=== PATIENT | female | born 1965 | race Caucasian/White ===

== ENCOUNTER → 2016-12-01 | Outpatient (CLI) | payer OTHER ==
[~2016-12-01] MED LIST: ATIV1TAB10 PO; CELE20TA; FLUT44IN INH; KLON0.5T; LIPI20TA PO; MULTCAP8 PO; PANT40TA2 PO; PERC5TAB6 PO; TIZA2CAP3 PO; TRAZ50TA; VITAPOW41 PO
[2016-12-01 11:43] LABS: ALBUMIN/GLOBULIN RATIO 1.18 (1.00-1.93); ALKALINE PHOSPHATASE 38 U/L (45-117); ALT/SGPT 19 U/L (12-78); ANION GAP 4 MEQ/L (8-16); AST/SGOT 18 U/L (15-37); BILIRUBIN,TOTAL 0.5 MG/DL (0.2-1.0); BLOOD UREA NITROGEN 15 MG/DL (7-18); CALCIUM LEVEL 9.3 MG/DL (8.5-10.1); CARBON DIOXIDE LEVEL 32 MEQ/L (21-32); CHLORIDE LEVEL 105 MEQ/L (98-107); CHOLESTEROL LEVEL 249 MG/DL (<200); CREATININE FOR GFR 0.82 MG/DL (0.55-1.02); GLOMERULAR FILTRATION RATE > 60.0 (>51); GLUCOSE, FASTING 78 MG/DL (70-105); POTASSIUM SERUM 4.2 MEQ/L (3.5-5.1); SODIUM LEVEL 141 MEQ/L (136-145); TOTAL PROTEIN 7.4 GM/DL (6.4-8.2); TRIGLYCERIDES LEVEL 100 MG/DL (<150)
--- NOTE | 2016-12-01 12:40 | REP ---
Paranasal sinuses four views: The frontal, maxillary, sphenoid and ethmoid sinuses are clear on all views. Prevertebral soft tissues are normal. There is no adenoid hypertrophy. There is no nasal septal deviation. Impression: Negative plain film study of the paranasal sinuses. Signed by Lm Rosa MD 12/01/2016 12:32 P
[2016-12-01 13:26] LABS: ESTRADIOL < 19.0 PG/ML
== END ==
LOC: M LAB 10:21
PROVIDERS: ATTEND Family Medicine
DX: J32.9 Chronic sinusitis, unspecified (principal); E78.5 Hyperlipidemia, unspecified; N80.9 Endometriosis, unspecified; E55.9 Vitamin D deficiency, unspecified

== ENCOUNTER 2017-03-02 23:40 | Emergency (ER) | payer OTHER ==
[~2017-03-02] VITALS: Ht 162.6 cm; Wt 70.7 kg
[~2017-03-02 23:40] MED LIST changes: +PERC5TAB12 PO; -PERC5TAB6 PO
[2017-03-03] MEDS ORDERED: ATOR40TA75 PO (00:03)
[2017-03-03] MEDS ORDERED: OMEP40CA2 (00:03)
[2017-03-03] MEDS ORDERED: MONT10TA2 (00:03)
[2017-03-03] MEDS ORDERED: NS 1,000 ML IV ONE (01:15)
[2017-03-03] MEDS ORDERED: MAALOX 30 ML SUSP *UDC PO ONE (01:15)
[2017-03-03 01:32] LABS: BASO % 0.7 % (0.0-1.0); EOS # 0.3 K/mm3 (0.0-0.50); EOS % 3.7 % (0.0-3.0); LARGE UNSTAINED CELL # 0.2 K/mm3 (0.0-0.4); LARGE UNSTAINED CELL % 2.1 % (0.0-4.0); LYMPH # 3.2 K/mm3 (1.5-4.5); LYMPH % 41.4 % (24.0-44.0); MEAN CORPUSCULAR HEMOGLOBIN 29.4 pg (27.0-33.0); MEAN CORPUSCULAR VOLUME 89.2 fl (80.0-96.0); MONO # 0.5 K/mm3 (0.0-0.8); MONO % 6.3 % (0.0-5.0); NEUTROPHILS # 3.3 K/mm3 (1.8-7.7); NEUTROPHILS % 45.8 % (36.0-66.0); PLATELET COUNT, AUTOMATED 240 k/mm3 (150-450); RED CELL DISTRIBUTION WIDTH 12.8 % (11.5-14.5); WHITE BLOOD COUNT 7.2 K/mm3 (4.0-10.0)
[2017-03-03 01:58] LABS: ALBUMIN 3.6 GM/DL (3.2-5.2); ALKALINE PHOSPHATASE 35 U/L (45-117); ALT/SGPT 21 U/L (12-78); ANION GAP 4 MEQ/L (8-16); AST/SGOT 16 U/L (15-37); BILIRUBIN,DIRECT < 0.1 MG/DL (0.0-0.2); BILIRUBIN,TOTAL 0.2 MG/DL (0.2-1.0); BLOOD UREA NITROGEN 23 MG/DL (7-18); CALCIUM LEVEL 9.2 MG/DL (8.5-10.1); CARBON DIOXIDE LEVEL 30 MEQ/L (21-32); CHLORIDE LEVEL 106 MEQ/L (98-107); CREATININE FOR GFR 0.83 MG/DL (0.55-1.02); GLOMERULAR FILTRATION RATE > 60.0 (>51); GLUCOSE, FASTING 89 MG/DL (70-105); POTASSIUM SERUM 3.7 MEQ/L (3.5-5.1); SODIUM LEVEL 140 MEQ/L (136-145); TOTAL PROTEIN 7.2 GM/DL (6.4-8.2)
--- NOTE | 2017-03-03 03:00 | REPUSA ---
CLINICAL HISTORY: RUQ pain. TECHNIQUE: Realtime sonographic images were obtained in multiple projections. COMMENTS: The visualized liver is of uniform echo texture without evidence of mass or defect. There is no intra or extrahepatic biliary ductal dilatation. The common bile duct measures 5.1 mm. The gallbladder is physiologically distended without evidence of calculi. The gallbladder wall is not thickened and the re is no pericholecystic fluid. The visualized portions of the pancreas are unremarkable. The right kidney measures 12.1x5x5.5 cm. IMPRESSION: No evidence of cholelithiasis or cholecystitis. Thank you for your kind referral of this patient.
[2017-03-03] MEDS ORDERED: HYOSCYAMINE SULFATE 0.125 MG SUBL TABLET PO ONE (04:00)
[2017-03-03] MEDS ORDERED: ISOVUE-370 76% 100ML VIAL (Q9967) As Ordered ONE (04:01)
--- NOTE | 2017-03-03 05:00 | REPUSA ---
CLINICAL HISTORY: Chest discomfort. TECHNIQUE: Multiple axial CT images were obtained through the thorax with IV contrast material. COMMENTS: No pulmonary embolus or aortic dissection. Bilateral basilar atelectatic pulmonary changes. There is no evidence of pleural or parenchymal mass. There are no pleural effusions. There is no evid ence of hilar or mediastinal lymphadenopathy. The heart and great vessels are within normal limits. The visualized portions of the liver are of uniform attenuation without mass or defect. There is no i ntra or extrahepatic biliary ductal dilatation. The spleen is unremarkable. The visualized pancreas i s of normal contour and attenuation characteristics. There is no evidence of adrenal mass. The visual ized portions of the kidneys present no abnormalities. The bony structures are free of lytic or blastic lesions. Post contrast images demonstrate no evidence for abnormal enhancement. IMPRESSION: Bilateral basilar atelectatic pulmonary changes. No pulmonary embolus or aortic dissection. No evidence of acute thoracic pathology. Thank you for your kind referral of this patient.
--- NOTE | 2017-03-03 05:40 | REPUSA ---
CLINICAL HISTORY: Abdominal pain. TECHNIQUE: Multiple axial, sagittal and coronal CT images were obtained through the abdomen and pelvi s after administration of oral and intravenous contrast material. Images were obtained before and aft er IV contrast administration. COMMENTS: The liver is of uniform attenuation without mass or defect. There is no intra or extrahepatic biliary ductal dilatation. The spleen is normal. The gallbladder is within normal limits. The pancreas is of normal contour and attenuation characteristics. There is no evidence of adrenal mass. Both kidneys demonstrate prompt and equal nephrograms. The kidneys are normal in size, shape and conf iguration. There is no evidence of renal or ureteral mass. No renal or ureteral calculi are identifie d. There is no hydroureter or hydronephrosis. No evidence for appendicitis. There is no bowel wall thickening. No evidence for small or large jaydon l obstruction. There is no evidence of abdominal ascites or lymphadenopathy. There is no evidence of intrinsic or extrinsic bladder mass. There is no pelvic ascites or lymphadeno ger. Prior hysterectomy. Images of the lung bases show no evidence of pleural or parenchymal mass. There are no pleural effusi ons. The bony structures are free of lytic or blastic lesions. IMPRESSION: Prior hysterectomy. No evidence of acute abdominal or pelvic pathology. No aortic dissection. Thank you for your kind referral of this patient.
[2017-03-03] MEDS ORDERED: HYOS1TAB PO (06:10)
[2017-03-03 06:21] VITALS: BP 100/77
[2017-04-30] MEDS ORDERED: ALBU17IN INH (07:48)
[2017-04-30] MEDS ORDERED: LANS30CA PO (07:48)
[2017-04-30] MEDS ORDERED: ACYC800T PO (07:48)
[2017-04-30] MEDS ORDERED: AZEL0.1S3 (07:48)
[2017-05-14] MEDS ORDERED: OXYC1TAB23 PO (10:03)
== END 2017-03-03 06:29 | disposition home or self-care (01) ==
LOC: M ED 23:40
DX: K80.50 Calculus of bile duct without cholangitis or cholecystitis without obstruction (principal); K21.9 Gastro-esophageal reflux disease without esophagitis; E78.5 Hyperlipidemia, unspecified; Z88.5 Allergy status to narcotic agent; Z88.8 Allergy status to other drugs, medicaments and biological substances; Z88.2 Allergy status to sulfonamides; Z88.1 Allergy status to other antibiotic agents; Z88.0 Allergy status to penicillin; Z79.899 Other long term (current) drug therapy

== ENCOUNTER → 2017-03-30 | Outpatient (CLI) | payer OTHER ==
[~2017-03-30] MED LIST changes: +ACYC800T PO; +ALBU17IN INH; +ATOR40TA75 PO; +AZEL0.1S3; +CIPR-249 PO; +HYOS1TAB PO; +IBUP-1022 PO; +LANS30CA PO; +MACR100C43 PO; +MONT10TA2; +OMEP40CA2; +OXYC1TAB23 PO; +TYLE500T78 PO; +ZANT300T PO; +ZOFR4TAB3 PO
--- NOTE | 2017-03-30 09:50 | REPMRS ---
Patient History The patient states she has not had a clinical breast exam in over a year. Patient is postmenopausal and has history of skin cancer at age 50. Family history of prostate cancer in father at age 50 or over and breast cancer in mother under age 50. Digital Woman Screen Mammo: March 30, 2017 - Exam #: [id number] Bilateral CC and MLO view(s) were taken. Technologist: Jacquelin Quintero, Technologist Prior study comparison: January 10, 2016, digital woman screen mammo performed at [facility]. December 11, 2014, digital woman screen mammo performed at [facility]. FINDINGS: There are scattered fibroglandular densities. There has been no change in the appearance of the mammogram from the prior studies. There is a moderate amount of residual fibroglandular tissue which is fairly symmetric. There is no interval development of dominant mass, architectural distortion, or clustered microcalcification suggestive of malignancy. There is a benign appearing intramammary node in the upper outer quadrant of the right breast. Scattered lymph nodes are seen in the axilla. No significant changes when compared with prior studies. ASSESSMENT: BI-RADS/ACR category 2 mammogram. Benign finding(s). Recommendation Routine screening mammogram in 1 year (for women over age 40). This mammogram was interpreted with the aid of an FDA-approved computer-aided dectection system. A. Negative x-ray reports should not delay biopsy if a dominant or clinically suspicious mass is present. B. Four to eight percent of cancers are not identified by mammography. C. Adenosis and dense breast may obscure an underlying neoplasm. Electronically Signed By: Jax Gomez MD 03/30/17 0952
--- NOTE | 2017-04-01 10:43 | DEXA ---
AP SPINE L1 - L4 0.952 -2.0 -1.4 LT FEMUR TOTAL 0.731 -2.2 -1.7 RT FEMUR TOTAL 0.726 -2.2 -1.7 TOTAL BODY TOTAL OTHER DUAL FEMUR FRAX* ASSESSMENT Risk factors: History of adult fracture, premature menopause. 10 year probability of fracture Major osteoporotic fracture 14.0 % Hip fracture 3.4 % COMMENTS: There is low bone density of the spine. There is low bone density of the left hip. There is low bone density of the right hip. The density of the spine has decreased 1.8% since the initial exam on 2012. The spine density has increased 1.2% since the most recent exam on 01/29/2015. The density of the left hip has decreased 0.9% since the initial exam on 2012. The density of the left hip has decreased 1.5% since the most recent exam on 08/2014. The density of the right hip has decreased 1.8% since the initial exam on 2012. The density of the right hip has decreased 5.6% since the most recent exam on . FOLLOW-UP: Recommendation for the next bone density exam: 2 years. LAMAR
== END ==
LOC: M WHC 09:00
PROVIDERS: ATTEND Family Medicine
DX: Z12.31 Encounter for screening mammogram for malignant neoplasm of breast (principal); Z80.3 Family history of malignant neoplasm of breast; M85.80 Other specified disorders of bone density and structure, unspecified site
CPT/HCPCS: 77080; G0202

== ENCOUNTER → 2017-05-11 | Outpatient (CLI) | payer OTHER ==
--- NOTE | 2017-05-11 13:12 | ECGEPIP ---
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
== END ==
LOC: M LAB 11:15
PROVIDERS: ATTEND Anesthesiology
DX: Z01.818 Encounter for other preprocedural examination (principal); N80.9 Endometriosis, unspecified; Z85.828 Personal history of other malignant neoplasm of skin; E78.5 Hyperlipidemia, unspecified; K21.9 Gastro-esophageal reflux disease without esophagitis; E78.00 Pure hypercholesterolemia, unspecified

== ENCOUNTER → 2017-05-14 | Day surgery (SDC) | payer OTHER ==
[~2017-05-14] VITALS: Ht 162.6 cm; Wt 70.3 kg
[~2017-05-14] MED LIST changes: +BUPIVACAINE HCL 0.25% 30 ML VIAL As Ordered ONE; +GLYCOPYRROLATE INJ 0.2 MG/ML 2 ML VIAL As Ordered ONE; +HYDROmorphone HCL 1 MG/ML SYRINGE (J1170) IV PRN; +HYDROmorphone HCL 2 MG/ML 1ML VIAL (J1170) As Ordered ONE; +KETOROLAC 60 MG/2 ML VIAL (J1885) As Ordered ONE; +LIDOCAINE 2% INJ 100 MG/5 ML SDV (FOR ANES.) As Ordered ONE; +LR 1,000 ML IV SCH; +METOCLOPRAMIDE INJ 10MG/2ML VIAL (J2765) As Ordered ONE; +MIDAZOLAM INJ 2 MG/2 ML VIAL (J2250) As Ordered ONE; +NEOSTIGMINE 1MG/ML 5 ML SYRINGE (J2710) As Ordered ONE; +ONDANSETRON 4MG/2ML VIAL (J2405) As Ordered ONE; +ONDANSETRON 4MG/2ML VIAL (J2405) IV PRN; +PERCOCET 5MG/325MG TAB PO PRN; +PHENYLephrine HCL 500 MCG/5 ML (100MCG/ML) SYRINGE (J2370) As Ordered ONE; +PROPOFOL 200 MG/20 ML VIAL As Ordered ONE; +ROCURONIUM BROMIDE 50 MG/5 ML VIAL/SYRINGE As Ordered ONE; +SCOPOLAMINE 1.5 MG TRANSDERMAL TOP ONE; +dexameTHASONE 4 MG/ML 1ML VIAL (J1100) As Ordered ONE; +ePHEDrine SULFATE 25 MG/5 ML(5MG/ML) SYRINGE As Ordered ONE; +fentaNYL 100 MCG/2 ML INJECTION (J3010) As Ordered ONE; +fentaNYL 100 MCG/2 ML INJECTION (J3010) IV PRN
[2017-05-14 06:23] LABS: MEAN CORPUSCULAR HEMOGLOBIN 28.9 pg (27.0-33.0); MEAN CORPUSCULAR HGB CONC 33.1 g/dl (32.0-36.5); MEAN CORPUSCULAR VOLUME 87.5 fl (80.0-96.0); RED CELL DISTRIBUTION WIDTH 12.6 % (11.5-14.5); WHITE BLOOD COUNT 6.4 K/mm3 (4.0-10.0)
--- NOTE | 2017-05-14 10:44 | RO ---
DATE OF PROCEDURE: 05/14/2017 PREPROCEDURE DIAGNOSIS: Endometriosis, post menopausal. POSTPROCEDURE DIAGNOSIS: Endometriosis, post menopausal. PROCEDURE: Robotic assisted laparoscopic excision and ablation of endometriosis. SURGEON: Dr. Luis Antonio Waters. SHEET ROCK LAYER: Cindy Mota NP ANESTHESIA: General endotracheal. ESTIMATED BLOOD LOSS: 50 mL URINE OUTPUT: 200 mL FINDINGS: Extensive endometriosis implants involving the bladder, posterior cul-de-sac, paravesical space, pelvic sidewalls. There were endometriosis implants involving the rectum as well. She has a surgically absent uterus, fallopian tubes and ovaries. There were adhesions of omentum and epiploica to the vaginal cuff and pelvis sidewall on the left. DESCRIPTION OF PROCEDURE: The patient was taken to the operating room where general endotracheal anesthesia was induced. She was prepped and draped in the sterile fashion in the dorsal lithotomy position. A Feldman catheter was placed. Sponge stick was placed to use as a manipulator. A periumbilical incision was made with the scalpel. An 11 mm trocar was placed directly through this incision using Visiport. Three 8 mm suprapubic ports were placed under direct visualization. The patient was placed in Trendelenburg position. The da Eugene surgical robot was docked to the ports. Using monopolar endoshears and a bipolar PK dissector, the endometriosis implants were ablated. Monopolar cautery was the common way of ablating the endometriosis implants. In the posterior cul-de-sac, the anterior cul-de-sac and the perivesical spaces, the peritoneum was grasped, incised and dissected sharply. Several peritoneal biopsies were removed. Strips of peritoneum were dissected sharply. The ureters were identified and partially dissected near the area of the cardial ligament. Cindy Mota NP, was involved with the entire case, from start to finish. She helped position the patient under anesthesia, and inset the laparoscopic ports. She docked the robot. She manipulated the vaginal cuff to aid in surgery. She undocked the robot, and close the incisions. The pelvis was copiously irrigated and Mary coagulating agent was placed over all peritoneal surfaces. The pneumoperitoneum was released. All instruments removed. First the umbilical port was closed with interrupted sutures of 0 Vicryl. The skin was closed with #4-0 Monocryl subcuticular sutures. Sponge, instrument and needle counts were correct. MTDD
[2017-05-14 14:30] VITALS: BP 108/64
== END ==
LOC: M SDC 05:57
PROVIDERS: ATTEND Specialist
DX: N80.9 Endometriosis, unspecified (principal); Z78.0 Asymptomatic menopausal state; K21.9 Gastro-esophageal reflux disease without esophagitis; J32.9 Chronic sinusitis, unspecified; J30.9 Allergic rhinitis, unspecified; E78.5 Hyperlipidemia, unspecified; L57.0 Actinic keratosis; B00.9 Herpesviral infection, unspecified; R10.13 Epigastric pain; M47.816 Spondylosis without myelopathy or radiculopathy, lumbar region; E73.9 Lactose intolerance, unspecified; E55.9 Vitamin D deficiency, unspecified; M85.80 Other specified disorders of bone density and structure, unspecified site; F41.9 Anxiety disorder, unspecified; J45.20 Mild intermittent asthma, uncomplicated; T88.59XD Other complications of anesthesia, subsequent encounter; R29.898 Other symptoms and signs involving the musculoskeletal system; F31.9 Bipolar disorder, unspecified; Z88.0 Allergy status to penicillin; Z88.2 Allergy status to sulfonamides; Z88.5 Allergy status to narcotic agent; Z88.8 Allergy status to other drugs, medicaments and biological substances; Z79.899 Other long term (current) drug therapy; Z85.828 Personal history of other malignant neoplasm of skin; Z90.710 Acquired absence of both cervix and uterus

== ENCOUNTER 2017-05-15 16:50 | Emergency (ER) | payer OTHER ==
[~2017-05-15] VITALS: Ht 162.6 cm; Wt 70.5 kg
[~2017-05-15 16:50] MED LIST changes: -BUPIVACAINE HCL 0.25% 30 ML VIAL As Ordered ONE; -CIPR-249 PO; -GLYCOPYRROLATE INJ 0.2 MG/ML 2 ML VIAL As Ordered ONE; -HYDROmorphone HCL 1 MG/ML SYRINGE (J1170) IV PRN; -HYDROmorphone HCL 2 MG/ML 1ML VIAL (J1170) As Ordered ONE; -IBUP-1022 PO; -KETOROLAC 60 MG/2 ML VIAL (J1885) As Ordered ONE; -LIDOCAINE 2% INJ 100 MG/5 ML SDV (FOR ANES.) As Ordered ONE; -LR 1,000 ML IV SCH; -MACR100C43 PO; -METOCLOPRAMIDE INJ 10MG/2ML VIAL (J2765) As Ordered ONE; -MIDAZOLAM INJ 2 MG/2 ML VIAL (J2250) As Ordered ONE; -NEOSTIGMINE 1MG/ML 5 ML SYRINGE (J2710) As Ordered ONE; -ONDANSETRON 4MG/2ML VIAL (J2405) As Ordered ONE; -ONDANSETRON 4MG/2ML VIAL (J2405) IV PRN; -PERCOCET 5MG/325MG TAB PO PRN; -PHENYLephrine HCL 500 MCG/5 ML (100MCG/ML) SYRINGE (J2370) As Ordered ONE; -PROPOFOL 200 MG/20 ML VIAL As Ordered ONE; -ROCURONIUM BROMIDE 50 MG/5 ML VIAL/SYRINGE As Ordered ONE; -SCOPOLAMINE 1.5 MG TRANSDERMAL TOP ONE; -TYLE500T78 PO; -ZANT300T PO; -ZOFR4TAB3 PO; -dexameTHASONE 4 MG/ML 1ML VIAL (J1100) As Ordered ONE; -ePHEDrine SULFATE 25 MG/5 ML(5MG/ML) SYRINGE As Ordered ONE; -fentaNYL 100 MCG/2 ML INJECTION (J3010) As Ordered ONE; -fentaNYL 100 MCG/2 ML INJECTION (J3010) IV PRN
[2017-05-15] MEDS ORDERED: TYLE500T78 PO (17:16)
[2017-05-15] MEDS ORDERED: IBUP-1022 PO (17:16)
[2017-05-15 20:16] LABS: BASO % 0.5 % (0.0-1.0); EOS # 0.1 K/mm3 (0.0-0.50); EOS % 1.7 % (0.0-3.0); LARGE UNSTAINED CELL # 0.1 K/mm3 (0.0-0.4); LARGE UNSTAINED CELL % 1.7 % (0.0-4.0); LYMPH # 2.4 K/mm3 (1.5-4.5); LYMPH % 35.2 % (24.0-44.0); MEAN CORPUSCULAR HEMOGLOBIN 30.4 pg (27.0-33.0); MEAN CORPUSCULAR HGB CONC 34.5 g/dl (32.0-36.5); MEAN CORPUSCULAR VOLUME 88.1 fl (80.0-96.0); MONO # 0.5 K/mm3 (0.0-0.8); MONO % 6.9 % (0.0-5.0); NEUTROPHILS # 3.6 K/mm3 (1.8-7.7); PLATELET COUNT, AUTOMATED 247 k/mm3 (150-450); RED CELL DISTRIBUTION WIDTH 12.4 % (11.5-14.5); WHITE BLOOD COUNT 6.7 K/mm3 (4.0-10.0)
[2017-05-15 20:45] LABS: ALBUMIN 3.4 GM/DL (3.2-5.2); ALBUMIN/GLOBULIN RATIO 1.06 (1.00-1.93); ALKALINE PHOSPHATASE 34 U/L (45-117); ALT/SGPT 20 U/L (12-78); ANION GAP 9 MEQ/L (8-16); AST/SGOT 19 U/L (15-37); BILIRUBIN,DIRECT < 0.1 MG/DL (0.0-0.2); BILIRUBIN,TOTAL 0.5 MG/DL (0.2-1.0); BLOOD UREA NITROGEN 14 MG/DL (7-18); CALCIUM LEVEL 8.6 MG/DL (8.5-10.1); CARBON DIOXIDE LEVEL 29 MEQ/L (21-32); CHLORIDE LEVEL 107 MEQ/L (98-107); CREATININE FOR GFR 0.81 MG/DL (0.55-1.02); GLOMERULAR FILTRATION RATE > 60.0 (>51); GLUCOSE, FASTING 78 MG/DL (70-105); SODIUM LEVEL 145 MEQ/L (136-145); TOTAL PROTEIN 6.6 GM/DL (6.4-8.2)
[2017-05-15 21:28] VITALS: BP 119/63
== END 2017-05-15 21:31 | disposition home or self-care (01) ==
LOC: M ED 16:50
DX: R10.9 Unspecified abdominal pain (principal); R30.0 Dysuria; G89.18 Other acute postprocedural pain; J45.909 Unspecified asthma, uncomplicated; F31.9 Bipolar disorder, unspecified; N80.9 Endometriosis, unspecified; Z98.890 Other specified postprocedural states; Z79.899 Other long term (current) drug therapy; Z88.8 Allergy status to other drugs, medicaments and biological substances; Z88.1 Allergy status to other antibiotic agents; Z88.0 Allergy status to penicillin; Z88.2 Allergy status to sulfonamides; Z88.5 Allergy status to narcotic agent

== ENCOUNTER 2017-05-17 12:29 | Emergency (ER) | payer OTHER ==
[~2017-05-17] VITALS: Ht 162.6 cm; Wt 70.5 kg
[~2017-05-17 12:29] MED LIST changes: +IBUP-1022 PO; +TYLE500T78 PO
[2017-05-17] MEDS ORDERED: MACR100C43 PO (12:45)
[2017-05-17] MEDS ORDERED: NS 1,000 ML IV SCH (13:03)
[2017-05-17] MEDS ORDERED: ONDANSETRON 4MG/2ML VIAL (J2405) IV ONE (13:15)
--- NOTE | 2017-05-17 13:40 | REP ---
Clinical: Postoperative fever . Comparison: 12/17/2014 . Technique: PA and lateral. Findings: The mediastinum and cardiac silhouette are normal. The lung loera are clear and without acute consolidation, effusion, or pneumothorax. The skeletal structures are intact and normal. Impression: 1. No acute cardiopulmonary process. Signed by Alejandro Kaur MD 05/17/2017 01:32 P
[2017-05-17 13:48] LABS: BASO % 0.4 % (0.0-1.0); EOS # 0.2 K/mm3 (0.0-0.50); EOS % 2.4 % (0.0-3.0); LARGE UNSTAINED CELL # 0.1 K/mm3 (0.0-0.4); LARGE UNSTAINED CELL % 2.1 % (0.0-4.0); LYMPH # 2.4 K/mm3 (1.5-4.5); LYMPH % 35.4 % (24.0-44.0); MEAN CORPUSCULAR HEMOGLOBIN 29.9 pg (27.0-33.0); MEAN CORPUSCULAR HGB CONC 35.1 g/dl (32.0-36.5); MEAN CORPUSCULAR VOLUME 85.2 fl (80.0-96.0); MONO # 0.4 K/mm3 (0.0-0.8); MONO % 5.5 % (0.0-5.0); NEUTROPHILS # 3.6 K/mm3 (1.8-7.7); NEUTROPHILS % 54.2 % (36.0-66.0); PLATELET COUNT, AUTOMATED 292 k/mm3 (150-450); RED CELL DISTRIBUTION WIDTH 12.1 % (11.5-14.5); WHITE BLOOD COUNT 6.7 K/mm3 (4.0-10.0)
[2017-05-17 14:08] LABS: ALBUMIN 3.4 GM/DL (3.2-5.2); ALBUMIN/GLOBULIN RATIO 0.85 (1.00-1.93); ALKALINE PHOSPHATASE 34 U/L (45-117); ALT/SGPT 20 U/L (12-78); ANION GAP 8 MEQ/L (8-16); AST/SGOT 11 U/L (15-37); BILIRUBIN,DIRECT < 0.1 MG/DL (0.0-0.2); BILIRUBIN,TOTAL 0.3 MG/DL (0.2-1.0); BLOOD UREA NITROGEN 12 MG/DL (7-18); CARBON DIOXIDE LEVEL 28 MEQ/L (21-32); CHLORIDE LEVEL 109 MEQ/L (98-107); GLOMERULAR FILTRATION RATE > 60.0 (>51); GLUCOSE, FASTING 84 MG/DL (70-105); POTASSIUM SERUM 3.6 MEQ/L (3.5-5.1); SODIUM LEVEL 145 MEQ/L (136-145); TOTAL PROTEIN 7.4 GM/DL (6.4-8.2)
[2017-05-17] MEDS ORDERED: KETOROLAC 30 MG/ML VIAL (J1885) IV ONE (14:30)
[2017-05-17] MEDS ORDERED: GASTROGRAFIN SOLUTION 30ML (Q9963) PO ONE (15:00)
[2017-05-17] MEDS ORDERED: GASTROGRAFIN SOLUTION 30ML PO ONE (15:30)
[2017-05-17] MEDS ORDERED: ISOVUE-370 76% 100ML VIAL (Q9967) As Ordered ONE (15:51)
--- NOTE | 2017-05-17 18:00 | REPUSA ---
CT of the abdomen and pelvis with contrast Clinical statement: Pain. Technique: Multiple axial CT images were obtained from the base of the lungs through the floor of the pelvis utilizing 5 mm axial slices after administration of oral and nonionic intravenous contrast. C oronal and sagittal reconstructions were also obtained. Comparison: 03/03/2017. Findings: Chest: The visualized lung bases are clear. Abdomen: The liver, spleen, pancreas, kidneys, gallbladder, and adrenal glands are unremarkable. The aorta is within normal limits. There is no evidence of abdominal lymphadenopathy or ascites. Pelvis: The bowel is unremarkable, with no obstructive or inflammatory changes. The appendix is gray l. The urinary bladder is within normal limits. The patient is status post hysterectomy. There is no evidence of pelvic lymphadenopathy or ascites. Bones: There are no suspicious osseous abnormalities seen. Impression: Unremarkable CT examination of the abdomen and pelvis. No acute findings to explain the p atient's pain.
[2017-05-17] MEDS ORDERED: ZOFR4TAB3 PO (18:25)
[2017-05-17] MEDS ORDERED: NITROFURANTOIN (MACROBID) 100 MG CAP PO ONE (18:30)
[2017-05-17 18:32] VITALS: BP 119/67
== END 2017-05-17 18:40 | disposition home or self-care (01) ==
LOC: M ED 12:29
DX: G89.18 Other acute postprocedural pain (principal); N39.0 Urinary tract infection, site not specified; B96.20 Unspecified Escherichia coli [E. coli] as the cause of diseases classified elsewhere; J45.909 Unspecified asthma, uncomplicated; F31.9 Bipolar disorder, unspecified; M85.88 Other specified disorders of bone density and structure, other site; M51.36 Other intervertebral disc degeneration, lumbar region; J32.9 Chronic sinusitis, unspecified; Z87.891 Personal history of nicotine dependence; Z88.5 Allergy status to narcotic agent; Z88.8 Allergy status to other drugs, medicaments and biological substances; Z88.2 Allergy status to sulfonamides; Z88.4 Allergy status to anesthetic agent; Z88.0 Allergy status to penicillin; Z88.1 Allergy status to other antibiotic agents; Z79.899 Other long term (current) drug therapy
CPT/HCPCS: 71020; 74177; 80048; 80076; 83690; 85025; 93041; 94760; 96361; 96374; 96375; 99285; J1885; J2405; Q9963; Q9967

== ENCOUNTER → 2017-05-28 | Outpatient (REF) | payer OTHER ==
[~2017-05-28] MED LIST changes: +CIPR-249 PO; +MACR100C43 PO; +ZANT300T PO; +ZOFR4TAB3 PO
[2017-05-28 14:14] LABS: CHOLESTEROL LEVEL 188 MG/DL (<200); FREE T4 1.15 NG/DL (0.76-1.46); TRIGLYCERIDES LEVEL 104 MG/DL (<150)
[2017-05-29 10:08] LABS: HEPATITIS B SURFACE ANTIBODY POSITIVE (POSITIVE)
[2017-05-29 10:14] LABS: HEP C VIRUS AB SCREEN MEDICARE 0.2 INDEX (<0.8)
== END ==
LOC: M SFHCPLAZ 10:05
PROVIDERS: ATTEND Physician Assistant Medical
DX: E78.5 Hyperlipidemia, unspecified (principal); Z11.59 Encounter for screening for other viral diseases; Z11.4 Encounter for screening for human immunodeficiency virus [HIV]; R10.13 Epigastric pain
CPT/HCPCS: 36415; 84439; 84443; 86677; 87389; G0472

== ENCOUNTER 2017-06-12 16:23 | Emergency (ER) | payer OTHER, SELFPAY ==
[~2017-06-12] VITALS: Ht 162.6 cm; Wt 70.5 kg
[~2017-06-12 16:23] MED LIST changes: -CIPR-249 PO; -ZANT300T PO
--- NOTE | 2017-06-12 18:39 | REP ---
Abdominal series: Three views. History: Abdominal pain. Comparison chest x-ray May 17, 2017. Findings: Upright chest radiograph shows no evidence of infiltrate or free subdiaphragmatic air. Heart size is normal. Supine and erect views of the abdomen show a normal bowel gas pattern. Psoas margins and flank stripes are intact. No mass, organomegaly, or pathologic calcification is seen. Impression: Negative abdominal series. Signed by Oren Lopez MD 06/12/2017 07:25 P
--- NOTE | 2017-06-12 19:10 | REP ---
Thyroid sonography: History: Lump sensation in the throat. Findings: Thyroid isthmus is 0.2 cm in thickness. Right lobe dimensions are 3.6 x 1.3 x 1.5 cm. The left lobe measures 3.4 x 1.7 x 0.8 cm. There is a 2 mm cyst near the isthmus just to the left of midline. No other focal thyroid lesion is seen. No extrathyroidal mass or adenopathy noted. Impression: Negative thyroid sonography. Signed by Oren Lopez MD 06/12/2017 07:25 P
[2017-06-12] MEDS ORDERED: MACR100C43 PO (19:48)
[2017-06-12] MEDS ORDERED: ZANT300T PO (19:48)
[2017-06-12 19:57] VITALS: BP 127/75
[2017-06-12] MEDS ORDERED: CIPR-249 PO (20:19)
== END 2017-06-12 20:18 | disposition home or self-care (01) ==
LOC: M ED 16:23
DX: K44.9 Diaphragmatic hernia without obstruction or gangrene (principal); K21.9 Gastro-esophageal reflux disease without esophagitis; N39.0 Urinary tract infection, site not specified; Z88.5 Allergy status to narcotic agent; Z88.8 Allergy status to other drugs, medicaments and biological substances; Z88.0 Allergy status to penicillin; Z88.2 Allergy status to sulfonamides; Z88.1 Allergy status to other antibiotic agents

== ENCOUNTER → 2017-07-25 | Outpatient (CLI) | payer OTHER ==
[~2017-07-25] MED LIST changes: +CIPR-249 PO; +ZANT300T PO
--- NOTE | 2017-07-25 16:19 | REP ---
Clinical: Chronic pain. Technique: AP, lateral, bilateral oblique views of the left foot. Findings: No acute or healed fracture identified. Mild age-related degenerative changes at the tarsometatarsal joints include subchondral sclerosis and minimal cortical irregularity. Small soft tissue calcifications adjacent to the cuboid and navicular bones are in keeping with mild degenerative change. Lateral view demonstrates small calcaneal heal spur. Impression: Age-related degenerative changes. Signed by Alejandro Kaur MD 07/25/2017 04:11 P
== END ==
LOC: M WUC 15:36
PROVIDERS: ATTEND Physician Assistant Medical
DX: M19.072 Primary osteoarthritis, left ankle and foot (principal)

== ENCOUNTER → 2017-09-22 | Outpatient (REF) | payer OTHER ==
[2017-09-22 13:09] LABS: PTH INTACT 76.8 PG/ML (14.0-72.0); TOTAL 25(OH) VITAMIN D 23.8 NG/ML (30.0-100.0)
[2017-09-22 13:15] LABS: ESTIMATED AVERAGE GLUCOSE 128 MG/DL (60-110); HEMOGLOBIN A1c 6.1 %
[2017-09-22 13:17] LABS: ALBUMIN 4.2 GM/DL (3.2-5.2); ALBUMIN/GLOBULIN RATIO 1.11 (1.00-1.93); ALKALINE PHOSPHATASE 42 U/L (45-117); ALT/SGPT 28 U/L (12-78); ANION GAP 3 MEQ/L (8-16); AST/SGOT 16 U/L (7-37); BILIRUBIN,TOTAL 0.4 MG/DL (0.2-1.0); BLOOD UREA NITROGEN 13 MG/DL (7-18); CALCIUM LEVEL 9.3 MG/DL (8.5-10.1); CARBON DIOXIDE LEVEL 33 MEQ/L (21-32); CHLORIDE LEVEL 104 MEQ/L (98-107); CREATININE FOR GFR 0.78 MG/DL (0.55-1.02); GLOMERULAR FILTRATION RATE > 60.0 (>51); GLUCOSE, FASTING 81 MG/DL (70-100); POTASSIUM SERUM 4.5 MEQ/L (3.5-5.1); SODIUM LEVEL 140 MEQ/L (136-145)
[2017-09-23 14:13] LABS: INSULIN LEVEL 10.3 uIU/mL (2.6-24.9)
== END ==
LOC: M SFHCPLAZ 08:54
DX: E55.9 Vitamin D deficiency, unspecified (principal); E78.5 Hyperlipidemia, unspecified

== ENCOUNTER → 2017-10-01 | Outpatient (REF) | payer OTHER ==
[2017-10-01 20:02] LABS: APPEARANCE, URINE CLEAR (CLEAR); BACTERIA, URINE AUTO NEGATIVE (NEGATIVE); BILIRUBIN, URINE AUTO NEGATIVE (NEGATIVE); BLOOD, URINE BLOOD NEGATIVE (NEGATIVE); COLOR, URINE STRAW (YELLOW); GLUCOSE, URINE (UA) AUTO NEGATIVE (NEGATIVE); KETONE, URINE AUTO NEGATIVE (NEGATIVE); LEUKOCYTE ESTERASE, URINE AUTO NEGATIVE (NEGATIVE); MUCUS, URINE SMALL (NEGATIVE); NITRITE, URINE AUTO NEGATIVE (NEGATIVE); PROTEIN, URINE AUTO NEGATIVE (NEGATIVE); RBC, URINE AUTO 0 /HPF (0-3); SPECIFIC GRAVITY URINE AUTO 1.005 (1.002-1.035); SQUAMOUS EPITHELIAL CELL UR AU 0 /HPF (0-6); UROBILINOGEN, URINE AUTO 0.2 mg/dL (0.0-2.0); WBC, URINE AUTO 0 /HPF (0-3)
== END ==
LOC: M LAB REF 19:11
DX: R39.9 Unspecified symptoms and signs involving the genitourinary system (principal)

== ENCOUNTER 2017-11-13 16:33 | Outpatient (CLI) | payer OTHER ==
[2017-11-13] MEDS: ZOLEDRONIC ACID 5 MG in APPROPRIATE DILUENT 1 EA IV (17:14)
== END 2017-11-13 18:10 | disposition home or self-care (01) ==
LOC: M INFU 16:33
DX: M85.80 Other specified disorders of bone density and structure, unspecified site (principal); Z79.899 Other long term (current) drug therapy
CPT/HCPCS: J3489

== ENCOUNTER 2017-11-14 17:00 | Emergency (ER) | payer OTHER ==
[2017-11-14] MEDS: ASPIRIN 81 MG CHEW TABLET PO ×2 (17:44)
[2017-11-14] MEDS: ONDANSETRON 4MG/2ML VIAL (J2405) IV ×2 (17:44)
[2017-11-14 17:49] LABS: BASO % 0.4 % (0.0-1.0); EOS # 0.1 10^3/uL (0.0-0.50); EOS % 1.4 % (0.0-3.0); HEMATOCRIT 41.3 % (36.0-47.0); HEMOGLOBIN 13.7 g/dl (12.0-16.0); IMMATURE GRANULOCYTE % 0.4 % (0-3.0); LYMPH # 1.3 10^3/uL (1.5-4.5); LYMPH % 16.2 % (24.0-44.0); MEAN CORPUSCULAR HEMOGLOBIN 28.7 pg (27.0-33.0); MEAN CORPUSCULAR HGB CONC 33.2 g/dl (32.0-36.5); MEAN CORPUSCULAR VOLUME 86.4 fl (80.0-96.0); MONO # 0.5 10^3/uL (0.0-0.8); MONO % 6.3 % (0.0-5.0); NEUTROPHILS # 5.9 10^3/uL (1.8-7.7); NEUTROPHILS % 75.3 % (36.0-66.0); PLATELET COUNT, AUTOMATED 299 10^3/uL (150-450); RED BLOOD COUNT 4.78 10^6/uL (4.00-5.40); RED CELL DISTRIBUTION WIDTH 12.9 % (11.5-14.5); WHITE BLOOD COUNT 7.9 10^3/uL (4.0-10.0)
[2017-11-14 17:52] LABS: INR 0.89
[2017-11-14 17:53] LABS: PARTIAL THROMBOPLASTIN TIME 30.8 SECONDS (26.8-37.9)
[2017-11-14 18:06] LABS: ALBUMIN 4.1 GM/DL (3.2-5.2); ALBUMIN/GLOBULIN RATIO 1.08 (1.00-1.93); ALKALINE PHOSPHATASE 44 U/L (45-117); ALT/SGPT 36 U/L (12-78); ANION GAP 8 MEQ/L (8-16); AST/SGOT 28 U/L (7-37); BILIRUBIN,DIRECT < 0.1 MG/DL (0.0-0.2); BILIRUBIN,TOTAL 0.3 MG/DL (0.2-1.0); BLOOD UREA NITROGEN 20 MG/DL (7-18); CALCIUM LEVEL 8.6 MG/DL (8.5-10.1); CARBON DIOXIDE LEVEL 27 MEQ/L (21-32); CHLORIDE LEVEL 105 MEQ/L (98-107); CPK CREATINE PHOSPHOKINASE 112 U/L (26-192); CREATININE FOR GFR 0.79 MG/DL (0.55-1.30); GLOMERULAR FILTRATION RATE > 60.0 (>51); GLUCOSE, FASTING 95 MG/DL (70-100); LIPASE 202 U/L (73-393); POTASSIUM SERUM 3.8 MEQ/L (3.5-5.1); SODIUM LEVEL 140 MEQ/L (136-145); TOTAL PROTEIN 7.9 GM/DL (6.4-8.2); TROPONIN I < 0.02 NG/ML (< 0.10)
[2017-11-14 18:07] LABS: CK-MB VALUE MASS 1.7 NG/ML (0.0-3.6); MB/CK RELATIVE INDEX 1.51 (< OR =4)
[2017-11-14] MEDS ORDERED: ISOVUE-370 76% 100ML VIAL (Q9967) As Ordered ×2 (18:25)
[2017-11-14] MEDS: KETOROLAC 30 MG/ML VIAL (J1885) IV ×2 (19:34)
[2017-11-14 19:54] LABS: CK-MB VALUE MASS 1.3 NG/ML (0.0-3.6); CPK CREATINE PHOSPHOKINASE 86 U/L (26-192); MB/CK RELATIVE INDEX 1.51 (< OR =4); TROPONIN I < 0.02 NG/ML (< 0.10)
== END 2017-11-14 20:42 | disposition home or self-care (01) ==
LOC: M ED 17:00
DX: R07.9 Chest pain, unspecified (principal); I45.19 Other right bundle-branch block; M51.36 Other intervertebral disc degeneration, lumbar region; J01.90 Acute sinusitis, unspecified; K21.9 Gastro-esophageal reflux disease without esophagitis; F31.9 Bipolar disorder, unspecified; J45.909 Unspecified asthma, uncomplicated; N80.9 Endometriosis, unspecified; Z87.891 Personal history of nicotine dependence; Z82.49 Family history of ischemic heart disease and other diseases of the circulatory system; Z79.899 Other long term (current) drug therapy; Z88.0 Allergy status to penicillin; Z88.8 Allergy status to other drugs, medicaments and biological substances; Z88.7 Allergy status to serum and vaccine; Z88.2 Allergy status to sulfonamides; Z88.5 Allergy status to narcotic agent
CPT/HCPCS: J2405

== ENCOUNTER → 2018-02-15 | Outpatient (CLI) | payer OTHER ==
[2018-02-15 10:20] LABS: APPEARANCE, URINE HAZY (CLEAR); BACTERIA, URINE AUTO NEGATIVE (NEGATIVE); BILIRUBIN, URINE AUTO NEGATIVE (NEGATIVE); BLOOD, URINE BLOOD NEGATIVE (NEGATIVE); COLOR, URINE AMBER (YELLOW); GLUCOSE, URINE (UA) AUTO NEGATIVE (NEGATIVE); KETONE, URINE AUTO TRACE mg/dL (NEGATIVE); LEUKOCYTE ESTERASE, URINE AUTO 1+ (NEGATIVE); MUCUS, URINE SMALL (NEGATIVE); NITRITE, URINE AUTO NEGATIVE (NEGATIVE); PROTEIN, URINE AUTO NEGATIVE (NEGATIVE); RBC, URINE AUTO 2 /HPF (0-3); SPECIFIC GRAVITY URINE AUTO 1.025 (1.002-1.035); SQUAMOUS EPITHELIAL CELL UR AU 0 /HPF (0-6); WBC, URINE AUTO 26 /HPF (0-3)
[2018-02-15 10:57] LABS: C REACTIVE PROTEIN QUANTITATIV < 0.30 MG/DL (0.00-0.30); CHOLESTEROL LEVEL 176 MG/DL (<200); CHOLESTEROL RISK RATIO 3.142 (<5); CPK CREATINE PHOSPHOKINASE 92 U/L (26-192); HDL CHOLESTEROL 56 MG/DL (>40); NON-HDL-C 120 MG/DL; THYROID STIMULATING HORMONE 0.869 uIU/ML (0.358-3.740); TRIGLYCERIDES LEVEL 90 MG/DL (<150)
[2018-02-15 11:00] LABS: MALB URINE SIEMENS 25.9 MG/L; MAU/CREAT RATIO 10.6 MCG/MG (0.0-30.0)
[2018-02-15 11:06] LABS: ESTIMATED AVERAGE GLUCOSE 114 MG/DL (60-110); HEMOGLOBIN A1c 5.6 %
== END ==
LOC: M LAB 09:25
DX: R73.01 Impaired fasting glucose (principal)
CPT/HCPCS: 82550

== ENCOUNTER → 2018-03-05 | Outpatient (REF) | payer OTHER ==
[2018-03-06 11:34] LABS: APPEARANCE, URINE MANUAL TURBID (CLEAR); BILIRUBIN, URINE MANUAL NEGATIVE (NEGATIVE); COLOR, URINE MANUAL YELLOW (YELLOW); GLUCOSE, URINE (UA) MANUAL NEGATIVE (NEGATIVE); KETONE, URINE MANUAL NEGATIVE (NEGATIVE); NITRITE, URINE MANUAL NEGATIVE (NEGATIVE); PH,URINE MAN 5.5 UNITS (5.0 - 7.0); PROTEIN, URINE MANUAL NEGATIVE (NEGATIVE); SPECIFIC GRAVITY,URINE MANUAL 1.025 (1.002-1.035); UROBILINOGEN, URINE MANUAL NORMAL (NORMAL)
[2018-03-06 11:38] LABS: BLOOD URINE MANUAL TRACE (NEGATIVE); MICROSCOPIC INDICATED? MAN YES (NO)
[2018-03-06 11:39] LABS: LEUKOCYTE ESTERASE, URINE MAN TRACE (NEGATIVE)
[2018-03-06 11:40] LABS: AMORPHOUS SEDIMENT, URINE LARGE AMOUNT (NEGATIVE); BACTERIA, URINE NONE SEEN; CALCIUM OXALATE CRYSTALS,URINE SMALL AMOUNT /hpf; HYALINE CAST, URINE NONE SEEN /lpf (0-1); MICROSCOPIC EXAM PERFORMED; MUCUS, URINE SMALL AMOUNT (NEGATIVE); RBC, URINE 0-1 /hpf (0-3); SQUAMOUS EPITHELIAL CELL URINE NONE SEEN /hpf (SMALL AMT)
== END ==
LOC: M LAB REF 13:00
DX: N39.0 Urinary tract infection, site not specified (principal)

== ENCOUNTER 2018-03-16 17:14 | Emergency (ER) | payer OTHER ==
[2018-03-16] MEDS: NS 1,000 ML IV ×2 (18:00→19:10)
[2018-03-16] MEDS: KETOROLAC 30 MG/ML VIAL (J1885) IV (18:16)
[2018-03-16 18:32] LABS: BASO % 0.4 % (0.0-1.0); EOS # 0.1 10^3/uL (0.0-0.50); EOS % 1.5 % (0.0-3.0); HEMATOCRIT 40.5 % (36.0-47.0); HEMOGLOBIN 13.6 g/dl (12.0-15.5); IMMATURE GRANULOCYTE % 0.4 % (0-3.0); LYMPH # 3.5 10^3/uL (1.5-4.5); LYMPH % 37.3 % (24.0-44.0); MEAN CORPUSCULAR HEMOGLOBIN 28.5 pg (27.0-33.0); MEAN CORPUSCULAR HGB CONC 33.6 g/dl (32.0-36.5); MEAN CORPUSCULAR VOLUME 84.9 fl (80.0-96.0); MONO # 0.8 10^3/uL (0.0-0.8); NEUTROPHILS # 4.8 10^3/uL (1.8-7.7); NEUTROPHILS % 51.4 % (36.0-66.0); PLATELET COUNT, AUTOMATED 293 10^3/uL (150-450); RED BLOOD COUNT 4.77 10^6/uL (4.00-5.40); RED CELL DISTRIBUTION WIDTH 12.8 % (11.5-14.5); WHITE BLOOD COUNT 9.4 10^3/uL (4.0-10.0)
[2018-03-16 18:35] LABS: LACTIC ACID SEPSIS PROTOCOL 0.7 MMOL/L (0.4-2.0)
[2018-03-16 18:53] LABS: ALBUMIN 4.1 GM/DL (3.2-5.2); ALBUMIN/GLOBULIN RATIO 1.14 (1.00-1.93); ALKALINE PHOSPHATASE 30 U/L (45-117); ALT/SGPT 28 U/L (12-78); ANION GAP 9 MEQ/L (8-16); AST/SGOT 15 U/L (7-37); BILIRUBIN,TOTAL 0.4 MG/DL (0.2-1.0); BLOOD UREA NITROGEN 19 MG/DL (7-18); CARBON DIOXIDE LEVEL 27 MEQ/L (21-32); CHLORIDE LEVEL 105 MEQ/L (98-107); CPK CREATINE PHOSPHOKINASE 130 U/L (26-192); CREATININE FOR GFR 0.82 MG/DL (0.55-1.30); GLOMERULAR FILTRATION RATE > 60.0 (>51); GLUCOSE, FASTING 77 MG/DL (70-100); POTASSIUM SERUM 3.6 MEQ/L (3.5-5.1); SODIUM LEVEL 141 MEQ/L (136-145); TOTAL PROTEIN 7.7 GM/DL (6.4-8.2)
[2018-03-16 19:26] LABS: KETONE, URINE AUTO RFX NEGATIVE (NEGATIVE); LEUKOCYTE ESTERASE UR AUTO RFX 1+ (NEGATIVE); MUCUS, URINE RFX SMALL (NEGATIVE); NITRITE, URINE AUTO RFX NEGATIVE (NEGATIVE); RBC, URINE AUTO RFX 3 /HPF (0-3); SPECIFIC GRAVITY UR AUTO RFX 1.013 (1.002-1.035); SQUAM EPITHELIAL CELL UR AURFX 0 /HPF (0-6); WBC, URINE AUTO RFX 2 /HPF (0-3)
== END 2018-03-16 20:58 | disposition home or self-care (01) ==
LOC: M ED 17:14
DX: R11.0 Nausea (principal); R42 Dizziness and giddiness; I45.19 Other right bundle-branch block; F41.9 Anxiety disorder, unspecified; F31.9 Bipolar disorder, unspecified; E78.00 Pure hypercholesterolemia, unspecified; K57.90 Diverticulosis of intestine, part unspecified, without perforation or abscess without bleeding; N80.9 Endometriosis, unspecified; Z87.891 Personal history of nicotine dependence; Z79.899 Other long term (current) drug therapy; Z88.5 Allergy status to narcotic agent; Z88.8 Allergy status to other drugs, medicaments and biological substances; Z88.0 Allergy status to penicillin; Z88.2 Allergy status to sulfonamides
CPT/HCPCS: J1885

== ENCOUNTER → 2018-03-19 | Outpatient (CLI) | payer OTHER | LOC: M RAD 07:14 | DX: R35.0 Frequency of micturition (principal) | CPT/HCPCS: 76857 ==

== ENCOUNTER → 2018-03-23 | Outpatient (CLI) | payer OTHER | LOC: M WHC 16:08 | DX: Z12.31 Encounter for screening mammogram for malignant neoplasm of breast (principal) | CPT/HCPCS: 77067 ==

== ENCOUNTER → 2018-09-10 | Outpatient (REF) | payer OTHER ==
[~2018-09-10] MED LIST changes: +CALCTAB41 PO; +CAPS0.1C2 EX; +CELE1CAP9 PO; +CHEW500C2 PO; +CYCL10TA PO; +D200CAP3 PO; +DYMI137S; +FLON1SPR; +LORA0.5T11 PO; +LUPR11.22 IM; +MOBI4TAB PO; +MULT1TAB10 PO; -PANT40TA2 PO; +PANT40TA3 PO; +PRIL20TA2 PO; +RANI300T PO; +RECL5INJ2 IV; +TIZA2CAP PO; -TIZA2CAP3 PO; +VENTAER IN; +VITA50005 PO; +VOLT1GEL15 TD; -ZANT300T PO; +ZANT300T9 PO; +ZOFR4TAB14 PO; -ZOFR4TAB3 PO
[2018-09-10 12:20] LABS: BASO % 0.5 % (0.0-1.0); EOS # 0.2 10^3/uL (0.0-0.50); EOS % 2.6 % (0.0-3.0); HEMATOCRIT 36.2 % (36.0-47.0); LYMPH # 2.2 10^3/uL (1.5-4.5); LYMPH % 33.4 % (24.0-44.0); MEAN CORPUSCULAR HEMOGLOBIN 28.7 pg (27.0-33.0); MEAN CORPUSCULAR HGB CONC 33.1 g/dl (32.0-36.5); MEAN CORPUSCULAR VOLUME 86.6 fl (80.0-96.0); MONO # 0.6 10^3/uL (0.0-0.8); MONO % 9.6 % (0.0-5.0); NEUTROPHILS # 3.5 10^3/uL (1.8-7.7); NEUTROPHILS % 53.1 % (36.0-66.0); PLATELET COUNT, AUTOMATED 326 10^3/uL (150-450); RED BLOOD COUNT 4.18 10^6/uL (4.00-5.40); WHITE BLOOD COUNT 6.6 10^3/uL (4.0-10.0)
[2018-09-10 12:58] LABS: ALBUMIN 3.9 GM/DL (3.2-5.2); ALT/SGPT 22 U/L (12-78); BILIRUBIN,TOTAL 0.2 MG/DL (0.2-1.0); BLOOD UREA NITROGEN 16 MG/DL (7-18); CALCIUM LEVEL 9.1 MG/DL (8.5-10.1); CARBON DIOXIDE LEVEL 27 MEQ/L (21-32); CHLORIDE LEVEL 104 MEQ/L (98-107); GLOMERULAR FILTRATION RATE > 60.0 (>51); GLUCOSE, FASTING 80 MG/DL (70-100); POTASSIUM SERUM 4.6 MEQ/L (3.5-5.1); SODIUM LEVEL 140 MEQ/L (136-145); TOTAL PROTEIN 7.2 GM/DL (6.4-8.2)
[2018-09-10 14:06] LABS: PTH INTACT 86.4 PG/ML (18.5-88.0); TOTAL 25(OH) VITAMIN D 67.9 NG/ML (30.0-100.0)
== END ==
LOC: M SFHCPLAZ 11:05
PROVIDERS: ATTEND Family Medicine
DX: R10.13 Epigastric pain (principal); E55.9 Vitamin D deficiency, unspecified; R73.01 Impaired fasting glucose

== ENCOUNTER 2018-09-14 15:58 | Emergency (ER) | payer OTHER ==
[~2018-09-14] VITALS: Ht 162.6 cm; Wt 72.7 kg
[~2018-09-14 15:58] MED LIST changes: -CYCL10TA PO; -MOBI4TAB PO
[2018-09-14 15:59] VITALS: BP 125/70
[2018-09-14] MEDS ORDERED: MOBI4TAB PO (17:10)
[2018-09-14] MEDS ORDERED: CYCL10TA PO (17:10)
[2018-09-14] MEDS ORDERED: KETOROLAC 60 MG/2 ML VIAL (J1885) IM ONE (17:15)
== END 2018-09-14 17:41 | disposition home or self-care (01) ==
LOC: M ED 15:58
DX: M54.5 Low back pain (principal); Z87.891 Personal history of nicotine dependence; E78.00 Pure hypercholesterolemia, unspecified; F41.9 Anxiety disorder, unspecified; K21.9 Gastro-esophageal reflux disease without esophagitis; F31.9 Bipolar disorder, unspecified; Z79.899 Other long term (current) drug therapy; Z88.5 Allergy status to narcotic agent; Z88.4 Allergy status to anesthetic agent; Z88.8 Allergy status to other drugs, medicaments and biological substances; Z88.2 Allergy status to sulfonamides; Z88.0 Allergy status to penicillin
CPT/HCPCS: 96372; 99283; J1885

== ENCOUNTER 2018-09-27 09:29 | Emergency (ER) | payer OTHER ==
[~2018-09-27] VITALS: Ht 162.6 cm; Wt 72.7 kg
[~2018-09-27 09:29] MED LIST changes: +CYCL10TA PO; +MOBI4TAB PO
[2018-09-27] MEDS ORDERED: TETRACAINE 0.5% OPHTH SOLN 4ML OD ONE (10:15)
[2018-09-27] MEDS ORDERED: IRRIGATION OPHTH SOLN (EYE WASH) 120ML OD ONE ×2 (10:30→12:15)
[2018-09-27] MEDS ORDERED: FLUORESCEIN OPHTH 1 MG STRIP OD ONE (11:45)
[2018-09-27] MEDS ORDERED: MAXITROL OPHTH OINT 3.5 GM OD ONE (12:45)
[2018-09-27] MEDS ORDERED: KETO10TAB PO (13:38)
[2018-09-27] MEDS ORDERED: ONDA4TAB6 PO (13:38)
[2018-09-27 13:43] VITALS: BP 128/70
[2018-09-27] MEDS ORDERED: KETOROLAC 60 MG/2 ML VIAL (J1885) IM ONE (13:45)
== END 2018-09-27 14:11 | disposition home or self-care (01) ==
LOC: M ED 09:29
DX: Z77.098 Contact with and (suspected) exposure to other hazardous, chiefly nonmedicinal, chemicals (principal); T26.61XA Corrosion of cornea and conjunctival sac, right eye, initial encounter; Y92.89 Other specified places as the place of occurrence of the external cause; Y93.89 Activity, other specified; Z79.899 Other long term (current) drug therapy; Z88.5 Allergy status to narcotic agent; Z88.8 Allergy status to other drugs, medicaments and biological substances; Z88.0 Allergy status to penicillin; Z88.2 Allergy status to sulfonamides
CPT/HCPCS: 96372; 99284; J1885

== ENCOUNTER → 2018-10-27 | Outpatient (CLI) | payer OTHER ==
[~2018-10-27] MED LIST changes: +KETO10TAB PO; +ONDA4TAB6 PO
[2018-10-27 09:11] LABS: THYROID STIMULATING HORMONE 0.676 uIU/ML (0.358-3.740); THYROXINE (T4) 8.8 UG/DL (4.5-12.0)
[2018-10-27 09:38] LABS: TOTAL T3 106.8 NG/DL (60.0-181.0)
== END ==
LOC: M LAB 07:57
PROVIDERS: ATTEND Ophthalmology
DX: Z13.29 Encounter for screening for other suspected endocrine disorder (principal)

== ENCOUNTER 2018-12-24 11:55 | Day surgery (SDC) | payer OTHER ==
[~2018-12-24] VITALS: Ht 162.6 cm; Wt 73.7 kg
[~2018-12-24 11:55] MED LIST changes: +NO ITAB PO; +NS 1,000 ML IV ONE
[2018-12-24] MEDS ORDERED: fentaNYL 100 MCG/2 ML INJECTION (J3010) As Ordered ONE (13:05)
[2018-12-24] MEDS ORDERED: PROPOFOL 200 MG/20 ML VIAL As Ordered ONE (13:05)
[2018-12-24] MEDS ORDERED: FLON1SPR NARES (13:23)
[2018-12-24] MEDS ORDERED: CETI10CA2 PO (13:23)
--- NOTE | 2018-12-24 14:12 | ROOR ---
Patient Name: Maribel Aly Procedure Date: 12/24/2018 1:33 PM Date of : 1965 Age: 53 Room: [facility] Gender: Female Note Status: Finalized Procedure: Upper GI endoscopy Indications: Heartburn, Suspected gastro-esophageal reflux disease Providers: Arsh Leslie MD Referring MD: Jameson Landers MD Requesting Provider: Medicines: Monitored Anesthesia Care Complications: No immediate complications. Procedure: Pre-Anesthesia Assessment: - Prior to the procedure, a History and Physical was performed, and patient medications and allergies were reviewed. The patient is competent. The risks and benefits of the procedure and the sedation options and risks were discussed with the patient. All questions were answered and informed consent was obtained. Patient identification and proposed procedure were verified by the physician, the nurse and the anesthesiologist in the procedure room. Mental Status Examination: alert and oriented. Airway Examination: normal oropharyngeal airway and neck mobility. Respiratory Examination: clear to auscultation. CV Examination: normal. Prophylactic Antibiotics: The patient does not require prophylactic antibiotics. Prior Anticoagulants: The patient has taken no previous anticoagulant or antiplatelet agents. ASA Grade Assessment: II - A patient with mild systemic disease. After reviewing the risks and benefits, the patient was deemed in satisfactory condition to undergo the procedure. The anesthesia plan was to use monitored anesthesia care (MAC). Immediately prior to administration of medications, the patient was re-assessed for adequacy to receive sedatives. The heart rate, respiratory rate, oxygen saturations, blood pressure, adequacy of pulmonary ventilation, and response to care were monitored throughout the procedure. The physical status of the patient was re-assessed after the procedure. The Endoscope was introduced through the mouth, and advanced to the second part of duodenum. The upper GI endoscopy was accomplished without difficulty. The patient tolerated the procedure well. Findings: A small hiatal hernia was present. The Z-line was regular and was found 36 cm from the incisors. Biopsies were obtained from the proximal and distal esophagus with cold forceps for histology of suspected eosinophilic esophagitis. Verification of patient identification for the specimen was done by the physician and nurse using the patient's name, date and medical record number. Estimated blood loss was minimal. Patchy moderate inflammation characterized by congestion (edema), erythema, friability and granularity was found in the gastric antrum and in the prepyloric region of the stomach. Biopsies were taken with a cold forceps for Helicobacter pylori testing. Biopsies were taken with a cold forceps for histology. The duodenal bulb and second portion of the duodenum were normal. Biopsies for histology were taken with a cold forceps for evaluation of celiac disease. The PICKETT capsule with delivery system was introduced through the mouth and advanced into the esophagus, such that the PICKETT pH capsule was positioned 30 cm from the incisors, which was 6 cm proximal to the GE junction. Suction was applied to the well of the PICKETT pH capsule to suck in the adjacent mucosa of the esophagus using the external vacuum pump set at a minimum vacuum pressure of 550 mmHg for 30 seconds. The PICKETT pH capsule was then deployed by depressing the plunger on top of the handle to advance the locking pin into the mucosa, thereby attaching the capsule to the esophagus. The plunger was then rotated a quarter turn clockwise to release the capsule from the delivery system. The delivery system was then withdrawn. Endoscopy was utilized for probe placement and diagnostic evaluation. The scope was reinserted to evaluate placement of the PICKETT capsule. Visualization showed the PICKETT capsule to be in an appropriate position. Impression: - Small hiatal hernia. - Z-line regular, 36 cm from the incisors. Biopsied. - Gastritis. Biopsied. - Normal duodenal bulb and second portion of the duodenum. Biopsied. - The PICKETT pH capsule was positioned 30 cm from the incisors, which was 6 cm proximal to the GE junction. Recommendation: - Patient has a contact number available for emergencies. The signs and symptoms of potential delayed complications were discussed with the patient. Return to normal activities tomorrow. Written discharge instructions were provided to the patient. - Resume previous diet. - Follow an antireflux regimen. - Continue present medications. - Await pathology results. - Based on the biopsy results you will receive a phone call from GI clinic in 2-3 weeks to review the pathology results AND/OR your results will be faxed to your Primary care physician. - Return to primary care physician. Arsh Leslie MD Arsh Leslie MD 12/24/2018 2:11:56 PM Electronically signed by Arsh Leslie MD Number of Addenda: 0 Note Initiated On: 12/24/2018 1:33 PM Estimated Blood Loss: Estimated blood loss was minimal.
[2018-12-24 14:25] VITALS: BP 131/70
== END 2018-12-24 14:58 | disposition home or self-care (01) ==
LOC: M OPP 11:55
PROVIDERS: ATTEND Internal Medicine Gastroenterology
DX: K44.9 Diaphragmatic hernia without obstruction or gangrene (principal); K29.70 Gastritis, unspecified, without bleeding; R12 Heartburn
CPT/HCPCS: 43239; 88305; 91035; J3010

== ENCOUNTER → 2019-01-19 | Outpatient (CLI) | payer OTHER ==
[~2019-01-19] MED LIST changes: +CETI10CA2 PO; +FLON1SPR NARES; -NS 1,000 ML IV ONE
[2019-01-19 20:00] LABS: HEMOGLOBIN 12.4 g/dl (12.0-15.5); MEAN CORPUSCULAR HEMOGLOBIN 28.4 pg (27.0-33.0); MEAN CORPUSCULAR HGB CONC 31.8 g/dl (32.0-36.5); MEAN CORPUSCULAR VOLUME 89.2 fl (80.0-96.0); PLATELET COUNT, AUTOMATED 281 10^3/uL (150-450); RED BLOOD COUNT 4.37 10^6/uL (4.00-5.40); WHITE BLOOD COUNT 6.9 10^3/uL (4.0-10.0)
[2019-01-19 20:24] LABS: FREE T4 1.09 NG/DL (0.76-1.46); THYROID STIMULATING HORMONE 0.627 uIU/ML (0.358-3.740)
== END ==
LOC: M WUC 16:40
PROVIDERS: ATTEND Nurse Practitioner Family
DX: R53.83 Other fatigue (principal)

== ENCOUNTER → 2019-03-25 | Outpatient (CLI) | payer OTHER ==
[2019-03-25 09:48] LABS: BASO % 0.5 % (0.0-1.0); EOS # 0.1 10^3/uL (0.0-0.50); EOS % 2.1 % (0.0-3.0); HEMATOCRIT 41.4 % (36.0-47.0); HEMOGLOBIN 13.4 g/dl (12.0-15.5); LYMPH # 1.8 10^3/uL (1.5-4.5); LYMPH % 29.1 % (24.0-44.0); MEAN CORPUSCULAR HEMOGLOBIN 28.2 pg (27.0-33.0); MEAN CORPUSCULAR HGB CONC 32.4 g/dl (32.0-36.5); MEAN CORPUSCULAR VOLUME 87.2 fl (80.0-96.0); MONO # 0.6 10^3/uL (0.0-0.8); MONO % 9.1 % (0.0-5.0); NEUTROPHILS # 3.7 10^3/uL (1.8-7.7); PLATELET COUNT, AUTOMATED 296 10^3/uL (150-450); RED BLOOD COUNT 4.75 10^6/uL (4.00-5.40); WHITE BLOOD COUNT 6.3 10^3/uL (4.0-10.0)
[2019-03-25 10:10] LABS: HEMOGLOBIN A1c 5.5 %
[2019-03-25 10:27] LABS: ALBUMIN 4.1 GM/DL (3.2-5.2); ALT/SGPT 20 U/L (12-78); BILIRUBIN,TOTAL 0.4 MG/DL (0.2-1.0); BLOOD UREA NITROGEN 22 MG/DL (7-18); CALCIUM LEVEL 9.1 MG/DL (8.5-10.1); CARBON DIOXIDE LEVEL 29 MEQ/L (21-32); CHLORIDE LEVEL 108 MEQ/L (98-107); CHOLESTEROL LEVEL 251 MG/DL (<200); CHOLESTEROL RISK RATIO 4.048 (<5); CREATININE FOR GFR 0.78 MG/DL (0.55-1.30); GLOMERULAR FILTRATION RATE > 60.0 (>51); GLUCOSE, FASTING 84 MG/DL (70-100); HDL CHOLESTEROL 62 MG/DL (>40); LDL CHOLESTEROL 173 MG/DL (<100); NON-HDL-C 189 MG/DL; POTASSIUM SERUM 4.9 MEQ/L (3.5-5.1); SODIUM LEVEL 141 MEQ/L (136-145); TOTAL PROTEIN 7.6 GM/DL (6.4-8.2); TRIGLYCERIDES LEVEL 78 MG/DL (<150)
[2019-03-25 10:54] LABS: TOTAL 25(OH) VITAMIN D 61.7 NG/ML (30.0-100.0)
== END ==
LOC: M LAB 09:05
PROVIDERS: ATTEND Nurse Practitioner Family
DX: E78.5 Hyperlipidemia, unspecified (principal); R73.01 Impaired fasting glucose; E55.9 Vitamin D deficiency, unspecified

== ENCOUNTER 2019-05-23 17:21 | Emergency (ER) | payer OTHER ==
[~2019-05-23] VITALS: Ht 162.6 cm; Wt 73.9 kg
[2019-05-23 18:15] LABS: BASO # 0.1 10^3/uL (0.0-0.2); BASO % 0.6 % (0.0-1.0); EOS # 0.1 10^3/uL (0.0-0.5); EOS % 1.2 % (0.0-3.0); HEMATOCRIT 38.7 % (36.0-47.0); HEMOGLOBIN 12.9 g/dl (12.0-15.5); LYMPH # 2.7 10^3/uL (1.5-5.0); LYMPH % 32.2 % (24.0-44.0); MEAN CORPUSCULAR HEMOGLOBIN 29.4 pg (27.0-33.0); MEAN CORPUSCULAR HGB CONC 33.3 g/dl (32.0-36.5); MEAN CORPUSCULAR VOLUME 88.2 fl (80.0-96.0); MONO # 0.7 10^3/uL (0.0-0.8); MONO % 8.4 % (0.0-5.0); NEUTROPHILS # 4.8 10^3/uL (1.5-8.5); NEUTROPHILS % 57.4 % (36.0-66.0); PLATELET COUNT, AUTOMATED 350 10^3/uL (150-450); RED BLOOD COUNT 4.39 10^6/uL (4.00-5.40); WHITE BLOOD COUNT 8.4 10^3/uL (4.0-10.0)
[2019-05-23 18:48] LABS: ALT/SGPT 18 U/L (12-78); BILIRUBIN,DIRECT 0.1 MG/DL (0.0-0.2); BILIRUBIN,TOTAL 0.3 MG/DL (0.2-1.0); BLOOD UREA NITROGEN 24 MG/DL (7-18); CARBON DIOXIDE LEVEL 28 MEQ/L (21-32); CHLORIDE LEVEL 104 MEQ/L (98-107); CREATININE FOR GFR 0.76 MG/DL (0.55-1.30); GLOMERULAR FILTRATION RATE > 60.0 (>51); GLUCOSE, FASTING 79 MG/DL (70-100); LIPASE 143 U/L (73-393); POTASSIUM SERUM 4.3 MEQ/L (3.5-5.1); SODIUM LEVEL 139 MEQ/L (136-145); TOTAL PROTEIN 7.7 GM/DL (6.4-8.2)
[2019-05-23] MEDS ORDERED: [UNRECOGNIZED DRUG - CODE] PO (20:51)
[2019-05-23] MEDS ORDERED: ZANT150T40 PO ×2 (20:51)
[2019-05-23 21:27] VITALS: BP 132/74
[2019-05-23] MEDS ORDERED: SIMETHICONE 80 MG CHEW TAB PO STA (21:53)
[2019-05-23] MEDS ORDERED: ONDA4TAB6 PO (21:58)
[2019-05-23] MEDS ORDERED: DICY10CA13 PO (21:58)
[2019-05-23] MEDS ORDERED: SIME180C PO (21:58)
[2019-05-23] MEDS ORDERED: ONDANSETRON 4 MG ORAL DISINTEGRATING TAB (Q0162 PER 1MG) PO ONE (22:00)
[2019-05-23] MEDS ORDERED: DICYCLOMINE 10 MG CAP PO ONE (22:00)
== END 2019-05-23 22:09 | disposition home or self-care (01) ==
LOC: M ED 17:21
DX: R10.9 Unspecified abdominal pain (principal); G89.29 Other chronic pain; R14.1 Gas pain; R11.0 Nausea; N80.9 Endometriosis, unspecified; E78.5 Hyperlipidemia, unspecified; J45.909 Unspecified asthma, uncomplicated; K21.9 Gastro-esophageal reflux disease without esophagitis; K57.92 Diverticulitis of intestine, part unspecified, without perforation or abscess without bleeding; Z88.0 Allergy status to penicillin; Z88.2 Allergy status to sulfonamides; Z88.8 Allergy status to other drugs, medicaments and biological substances; Z88.5 Allergy status to narcotic agent; Z88.1 Allergy status to other antibiotic agents; Z88.7 Allergy status to serum and vaccine; Z79.899 Other long term (current) drug therapy
CPT/HCPCS: 36415; 80048; 80076; 81001; 83690; 85025; 87086; 99284; Q0162

== ENCOUNTER → 2019-06-06 | Outpatient (REF) | payer OTHER ==
[~2019-06-06] MED LIST changes: +DICY10CA13 PO; -LORA0.5T11 PO; +LORA0.5T5 PO; -OMEP40CA2; +OMEP40CA97; +SIME180C PO; +ZANT150T40 PO; +[UNRECOGNIZED DRUG - CODE] PO
[2019-06-06 18:41] LABS: C REACTIVE PROTEIN QUANTITATIV < 0.30 MG/DL (0.00-0.30)
[2019-06-06 18:54] LABS: LUTEINIZING HORMONE 44.2 mIU/mL
[2019-06-06 18:55] LABS: ESTRADIOL < 19.0 PG/ML; FOLLICLE STIMULATING HORMONE 101.2 mIU/mL
[2019-06-09 14:07] LABS: ESTRONE SERUM 81 pg/mL (.)
== END ==
LOC: M SFHCPLAZ 15:39
PROVIDERS: ATTEND Family Medicine
DX: Z23 Encounter for immunization (principal); R10.9 Unspecified abdominal pain

== ENCOUNTER → 2019-06-09 | Outpatient (REF) | payer OTHER ==
[~2019-06-09] MED LIST changes: +LORA0.5T11 PO; -LORA0.5T5 PO; +OMEP40CA2; -OMEP40CA97
== END ==
LOC: M SFHCPLAZ 16:57
PROVIDERS: ATTEND Family Medicine
DX: Z23 Encounter for immunization (principal); R10.9 Unspecified abdominal pain

== ENCOUNTER → 2019-08-01 | Outpatient (CLI) | payer OTHER ==
[~2019-08-01] MED LIST changes: +E-Z-GAS II EFFERVESCENT PACKET (SODIUM BICARB./CITRIC ACID/SIMETHICONE) As Ordered ONE; +E-Z-HD 98% w/w 340GM SUSP BTL As Ordered ONE; +E-Z-PAQUE 96% w/w SUSP 176GM BTL As Ordered ONE; -OMEP40CA2; +OMEP40CA97
--- NOTE | 2019-08-01 17:00 | REP ---
UPPER GI AIR CONTRAST AND SMALL BOWEL FOLLOW THROUGH The procedure was performed under the direct supervision of Dr. Patiño. The images were reviewed with Dr. Patioñ The blacksmith helper film shows no organomegaly or pathological masses. The intestinal gas pattern is non-specific. Liquid barium and gas producing crystals were given in the erect position as well as liquid barium in the prone oblique position in order to perform a double contrast upper GI examination. Additionally liquid barium was given at the end of the examination in order to perform a small bowel follow through. The oral and pharyngeal stages of deglutition are unremarkable. Esophageal transport is prompt and efficient and there is no esophagitis, stricture, mucosal ring or hiatal hernia. There is gastroesophageal reflux demonstrated to above the level of the mari. The stomach valencia are normally outlined . The rugal folds are smooth and regular. There is no gastritis neoplasm or ulcer disease. The duodenal valencia are normally outlined . The mucosal folds are smooth and regular. There is no duodenitis pancreatitis peptic ulcer disease or neoplasm. The visualized portion of the proximal small bowel appears normal in course and caliber. The barium column was followed through the small bowel to the level of the terminal ileum. Small bowel transit time is approximately 30 minutes . During fluoroscopy gentle palpation shows all loops are freely movable and pliable. There are no fixed or angulated loops. The small bowel mucosal pattern is normal in course and caliber. There is no transition to suggest a partial small-bowel obstruction. Spot filming of the terminal ileum shows it to be unremarkable. Impression: There is gastroesophageal reflux demonstrated to above the level of the mari. Otherwise, unremarkable double contrast upper GI and small bowel follow through examination. 3.1 minutes of fluoro time was utilized for this procedure. Electronically Signed by SCHUYLER King 08/01/2019 04:50 P Electronically Signed by Lm Patiño MD 08/01/2019 04:51 P
== END ==
LOC: M RAD 09:13
PROVIDERS: ATTEND Family Medicine
DX: K21.9 Gastro-esophageal reflux disease without esophagitis (principal)

== ENCOUNTER → 2020-01-25 | Outpatient (CLI) | payer OTHER ==
[~2020-01-25] MED LIST changes: +CYCL-707 PO; -CYCL10TA PO; -E-Z-GAS II EFFERVESCENT PACKET (SODIUM BICARB./CITRIC ACID/SIMETHICONE) As Ordered ONE; -E-Z-HD 98% w/w 340GM SUSP BTL As Ordered ONE; -E-Z-PAQUE 96% w/w SUSP 176GM BTL As Ordered ONE; -LORA0.5T11 PO; +LORA0.5T5 PO; -MONT10TA2; +MONT10TA4
--- NOTE | 2020-01-25 15:59 | REPMRS ---
Patient History The patient states she had a clinical breast exam in December 2019. Family history of breast cancer under age 50 in mother, prostate cancer at age 50 or over in father. Digital Woman Screen Mammo: January 25, 2020 - Exam #: [id number] Bilateral CC and MLO view(s) were taken. Technologist: Gina Toney, Technologist Prior study comparison: March 23, 2018, bilateral digital woman screen mammo performed at [facility]. March 30, 2017, digital woman screen mammo performed at [facility]. January 10, 2016, digital woman screen mammo performed at [facility]. December 26, 2013, digital woman screen mammo performed at [facility]. December 13, 2012, digital woman screen mammo performed at [facility]. FINDINGS: There are scattered fibroglandular densities. The Volpara volumetric breast density category is:B. There is a stable lymph node and the tail of the right breast unchanged from multiple prior studies. There are several centrally fat replaced lymph nodes in each axilla. Into the right axillary lymph nodes, there are microcalcifications in the cortical portion of the lymph nodes. Microcalcifications and axillary lymph nodes have benign and malignant differential possible etiologies. This finding merits further evaluation. There has been no other change in the appearance of the mammogram from the prior studies. There is a mild amount of scattered fibroglandular density which is fairly symmetric. There is no other interval development of dominant mass, architectural distortion, or grouped microcalcification suggestive of malignancy. 3-D tomosynthesis shows no additional findings. Assessment: BI-RADS/ACR category 0 mammogram, Incomplete: Need additional imaging evaluation and/or prior mammograms for comparison. Recommendation Ultrasound and special view mammogram of the right breast. This patient's Lifetime Breast Cancer Risk is estimated at 11.7 %. This mammogram was interpreted with the aid of an FDA-approved computer-aided dectection system. Electronically Signed By: Los Lopez MD 01/25/20 1522
== END ==
LOC: M WHC 13:59
PROVIDERS: ATTEND Specialist
DX: Z12.31 Encounter for screening mammogram for malignant neoplasm of breast (principal); Z80.3 Family history of malignant neoplasm of breast; Z80.42 Family history of malignant neoplasm of prostate; R92.0 Mammographic microcalcification found on diagnostic imaging of breast

== ENCOUNTER → 2020-02-20 | Outpatient (CLI) | payer OTHER ==
--- NOTE | 2020-02-21 04:14 | REP ---
DIAGNOSTIC MAMMOGRAM RIGHT BREAST WITH RIGHT BREAST ULTRASOUND: Magnification views of the right breast are performed and correlated with prior mammogram of 01/25/2020. These views confirm the presence of two mildly enlarged lymph nodes in the right axilla, which contain multiple tiny calcifications. These microcalcifications are pleomorphic. They appear suspicious. Real-time sonographic evaluation of right axillary region performed in the region of the lymph nodes containing microcalcifications. Several lymph nodes are seen in the right axilla. The largest measures 4.0 x 1.4 x 1.2 cm and corresponds to the size of one of the lymph nodes containing the pleomorphic microcalcifications. Recommend ultrasound-guided biopsy of this lymph node. Directly adjacent to this on the mammogram, a lymph node is present containing microcalcifications, which should also be biopsies using ultrasound guidance. The largest two lymph nodes seen elsewhere in the right axilla measure 1.7 x 1.1 x 0.8 cm and 1.9 x 1.3 x 1.0 cm, and one of these corresponds to the second suspicious lymph node. Two other smaller lymph nodes are seen, 1.3 x 0.9 x 0.6 cm and 6 x 6 x 4 mm. IMPRESSION: ACR 4, suspicious. Two right axillary lymph nodes contain suspicious pleomorphic microcalcifications. These should be biopsied with ultrasound guidance. Postprocedure mammogram and specimen radiograph should be performed. BIRADS 4: BI-RADS/ACR category 4 mammogram. Suspicious Abnormality - biopsy should be considered. The patient letter being requested is M4.
== END ==
LOC: M WHC 15:00
PROVIDERS: ATTEND Specialist
DX: R92.8 Other abnormal and inconclusive findings on diagnostic imaging of breast (principal); R92.0 Mammographic microcalcification found on diagnostic imaging of breast; N63.0 Unspecified lump in unspecified breast

== ENCOUNTER → 2020-03-28 | Outpatient (REF) | payer OTHER, SELFPAY ==
[~2020-03-28] MED LIST changes: +ESOM0.1C PO; +FLUTISP NARES; +GABA-1171 PO; +LOVA20TA2 PO; +PANT40TA29 PO; -PANT40TA3 PO; +PARO5TAB PO
[2020-04-23 13:05] LABS: BASO # 0.1 10^3/uL (0.0-0.2); BASO % 0.8 % (0.0-1.0); EOS # 0.2 10^3/uL (0.0-0.5); HEMATOCRIT 41.6 % (36.0-47.0); LYMPH # 2.5 10^3/uL (1.5-5.0); LYMPH % 42.8 % (24.0-44.0); MEAN CORPUSCULAR HEMOGLOBIN 31.1 pg (27.0-33.0); MEAN CORPUSCULAR HGB CONC 33.7 g/dl (32.0-36.5); MEAN CORPUSCULAR VOLUME 92.4 fl (80.0-96.0); MONO # 0.7 10^3/uL (0.0-0.8); MONO % 11.3 % (0.0-5.0); NEUTROPHILS # 2.5 10^3/uL (1.5-8.5); NEUTROPHILS % 41.6 % (36.0-66.0); PLATELET COUNT, AUTOMATED 276 10^3/uL (150-450); WHITE BLOOD COUNT 5.9 10^3/uL (4.0-10.0)
[2020-05-03 04:13] LABS: FREE T4 0.9 NG/DL (0.76-1.46); THYROID STIMULATING HORMONE 1.06 uIU/ML (0.358-3.740)
== END ==
LOC: M SFHCPLAZ 14:35
PROVIDERS: ATTEND Physician Assistant Medical
DX: Z00.00 Encounter for general adult medical examination without abnormal findings (principal)

== ENCOUNTER 2020-04-20 16:01 | Emergency (ER) | payer OTHER, SELFPAY ==
[~2020-04-20] VITALS: Ht 162.6 cm; Wt 76.9 kg
[~2020-04-20 16:01] MED LIST changes: -ESOM0.1C PO; -FLUTISP NARES; -GABA-1171 PO; -LOVA20TA2 PO; -PARO5TAB PO
[2020-04-20] MEDS ORDERED: NS 1,000 ML IV SCH (16:24)
[2020-04-20] MEDS ORDERED: ONDANSETRON 4MG/2ML VIAL IV ONE (16:30)
[2020-04-20] MEDS ORDERED: KETOROLAC 30 MG/ML 1ML VIAL IV ONE (16:30)
[2020-04-20] MEDS ORDERED: ISOVUE-370 76% 100ML VIAL As Ordered ONE (16:50)
[2020-04-20 16:52] LABS: BASO % 0.3 % (0.0-1.0); EOS % 0.3 % (0.0-3.0); HEMATOCRIT 43.4 % (36.0-47.0); HEMOGLOBIN 14.4 g/dl (12.0-15.5); LYMPH # 1.6 10^3/uL (1.5-5.0); LYMPH % 18.1 % (24.0-44.0); MEAN CORPUSCULAR HEMOGLOBIN 28.2 pg (27.0-33.0); MEAN CORPUSCULAR HGB CONC 33.2 g/dl (32.0-36.5); MEAN CORPUSCULAR VOLUME 85.1 fl (80.0-96.0); MONO # 0.6 10^3/uL (0.0-0.8); MONO % 6.5 % (0.0-5.0); NEUTROPHILS # 6.5 10^3/uL (1.5-8.5); NEUTROPHILS % 74.3 % (36.0-66.0); PLATELET COUNT, AUTOMATED 314 10^3/uL (150-450); WHITE BLOOD COUNT 8.8 10^3/uL (4.0-10.0)
--- NOTE | 2020-04-20 17:11 | REPVR ---
PROCEDURE INFORMATION: Exam: CT Abdomen And Pelvis With Contrast Exam date and time: 04/20/2020 4:53 PM Age: 54 years old Clinical indication: Abdominal pain; Generalized; Additional info: Abd pain TECHNIQUE: Imaging protocol: Computed tomography of the abdomen and pelvis with intravenous contrast. Radiation optimization: All CT scans at this facility use at least one of these dose optimization techniques: automated exposure control; mA and/or kV adjustment per patient size (includes targeted exams where dose is matched to clinical indication); or iterative reconstruction. Contrast material: ISOVUE 370; Contrast volume: 100 ml; Contrast route: INTRAVENOUS (IV); COMPARISON: CT ABD/PEL W/IV ORAL CONTRAS 05/17/2017 5:20 PM FINDINGS: Liver: Unremarkable. No mass. Gallbladder and bile ducts: Unremarkable. No calcified stones. No ductal dilation. Pancreas: Unremarkable. No ductal dilation. Spleen: Unremarkable. No splenomegaly. Adrenals: Normal. No mass. Kidneys and ureters: Unremarkable. No stones. No hydronephrosis. Stomach and bowel: Unremarkable. No obstruction. No mucosal thickening. Appendix: No evidence of appendicitis. Intraperitoneal space: Unremarkable. No free air. No significant fluid collection. Vasculature: Unremarkable. No abdominal aortic aneurysm. Lymph nodes: Unremarkable. No enlarged lymph nodes. Bladder: Unremarkable as visualized. Reproductive: Unremarkable as visualized. Bones/joints: No acute fracture. Soft tissues: Unremarkable. IMPRESSION: No acute findings. Electronically signed by: Harvinder Blanchard On 04/20/2020 17:11:11 PM
[2020-04-20 17:20] LABS: BILIRUBIN,DIRECT 0.1 MG/DL (0.0-0.2); BILIRUBIN,TOTAL 0.5 MG/DL (0.2-1.0); TOTAL PROTEIN 7.7 GM/DL (6.4-8.2)
[2020-04-20 19:00] VITALS: BP 117/62
[2020-04-20] MEDS ORDERED: KETAMINE HCL IV ONE (19:00)
[2020-04-20] MEDS ORDERED: NS IV ONE (19:00)
[2020-04-20] MEDS ORDERED: MAALOX 30 ML SUSP *UDC PO ONE (19:45)
[2020-04-21] MEDS ORDERED: LOVA20TA2 PO (11:07)
[2020-04-21] MEDS ORDERED: PARO5TAB PO (11:07)
[2020-04-21] MEDS ORDERED: FLUTISP NARES (11:42)
[2020-04-21] MEDS ORDERED: ESOM0.1C PO (11:42)
[2020-04-21] MEDS ORDERED: SIME180C PO (11:42)
[2020-04-21] MEDS ORDERED: ONDA4TAB6 PO (11:42)
--- NOTE | 2020-05-09 14:02 | ECGEPIP ---
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
== END 2020-04-20 19:45 | disposition home or self-care (01) ==
LOC: M ED 16:01
DX: R10.9 Unspecified abdominal pain (principal); G89.29 Other chronic pain; R11.0 Nausea; I45.10 Unspecified right bundle-branch block; N80.9 Endometriosis, unspecified; J45.909 Unspecified asthma, uncomplicated; F31.9 Bipolar disorder, unspecified; Z87.891 Personal history of nicotine dependence; Z88.0 Allergy status to penicillin; Z88.2 Allergy status to sulfonamides; Z88.8 Allergy status to other drugs, medicaments and biological substances; Z88.5 Allergy status to narcotic agent; Z88.1 Allergy status to other antibiotic agents; Z88.7 Allergy status to serum and vaccine; Z79.899 Other long term (current) drug therapy
CPT/HCPCS: 36415; 74177; 80047; 80076; 83690; 85025; 93005; 96361; 96365; 96375; 99284; J1885; J2405; Q9967

== ENCOUNTER 2020-04-21 06:40 | Inpatient (IN) | payer SELFPAY ==
[~2020-04-21] VITALS: Ht 162.6 cm; Wt 74.9 kg
[2020-04-21 07:14] LABS: BASO % 0.2 % (0.0-1.0); EOS % 0.3 % (0.0-3.0); HEMATOCRIT 44.1 % (36.0-47.0); HEMOGLOBIN 14.3 g/dl (12.0-15.5); LYMPH # 1.7 10^3/uL (1.5-5.0); LYMPH % 15.7 % (24.0-44.0); MEAN CORPUSCULAR HEMOGLOBIN 28.2 pg (27.0-33.0); MEAN CORPUSCULAR HGB CONC 32.4 g/dl (32.0-36.5); MONO # 0.7 10^3/uL (0.0-0.8); MONO % 6.6 % (0.0-5.0); NEUTROPHILS # 8.2 10^3/uL (1.5-8.5); NEUTROPHILS % 76.7 % (36.0-66.0); PLATELET COUNT, AUTOMATED 296 10^3/uL (150-450); RED BLOOD COUNT 5.07 10^6/uL (4.00-5.40); WHITE BLOOD COUNT 10.6 10^3/uL (4.0-10.0)
[2020-04-21] MEDS ORDERED: ONDANSETRON 4MG/2ML VIAL IV ONE (07:30)
[2020-04-21] MEDS ORDERED: KETOROLAC 30 MG/ML 1ML VIAL IV ONE (07:30)
[2020-04-21] MEDS ORDERED: NS 1,000 ML IV ONE (07:30)
[2020-04-21 07:47] LABS: ALBUMIN 3.8 GM/DL (3.2-5.2); ALT/SGPT 26 U/L (12-78); BILIRUBIN,DIRECT < 0.1 MG/DL (0.0-0.2); BILIRUBIN,TOTAL 0.5 MG/DL (0.2-1.0); CK-MB VALUE MASS < 1.0 NG/ML (<3.6); CPK CREATINE PHOSPHOKINASE 94 U/L (26-192); LIPASE 115 U/L (73-393); MB/CK RELATIVE INDEX 1.06 (< OR =4); TOTAL PROTEIN 7.4 GM/DL (6.4-8.2); TROPONIN I < 0.02 NG/ML (< 0.10)
[2020-04-21] MEDS ORDERED: diphenhydrAMINE 50MG/ML VIAL (J1200) IV ONE (08:45)
[2020-04-21] MEDS ORDERED: HALOPERIDOL 5MG/ML VIAL (J1630 PER 1) IV ONE (08:45)
[2020-04-21] MEDS ORDERED: NS IV ONE (10:00)
[2020-04-21] MEDS ORDERED: KETAMINE HCL IV ONE (10:00)
[2020-04-21] MEDS ORDERED: LOVA20TA2 PO (11:07)
[2020-04-21] MEDS ORDERED: PARO5TAB PO (11:07)
[2020-04-21] MEDS ORDERED: FLUTISP NARES (11:42)
[2020-04-21] MEDS ORDERED: ONDA4TAB6 PO (11:42)
[2020-04-21] MEDS ORDERED: SIME180C PO (11:42)
[2020-04-21] MEDS ORDERED: ESOM0.1C PO (11:42)
[2020-04-21] MEDS ORDERED: ONDANSETRON 4 MG ORAL DISINTEGRATING TAB PO PRN (14:30)
[2020-04-21] MEDS ORDERED: FLUTICASONE PROP 0.05% NASAL SPRAY 16 GM (FLONASE) NARES PRN (14:30)
--- NOTE | 2020-04-21 14:40 | HPEPDOC ---
[facility] Medical History & Physical Date of Admission Apr 21, 2020 Date of Service: Apr 21, 2020 Primary Care Physician: Jameson Landers M.D. Other Provider DR. MARTINEZ Attending Physician: LILIAM SHI MD History and Physical CHIEF COMPLAINT: Abd pain HISTORY OF PRESENT ILLNESS: This is a 54 y/o F with PMHx Asthma, GERD, HLD, Endometriosis s/p multiple laparoscopies who presents c/o abd pain. Pt presented to ED yesterday, had a CT a/p that was unremarkable. 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 Describes pain as sharp and burning, worse with movement and eating. No Fevers/chills. States she had a similar episode 2 months ago and it subsided on its own. Pt reports nausea, no vomiting, and an episode of diarrhea this am. Prior BM Yesterday was normal. Pt denies CP/SOB/palpitations. No sick contacts or recent travels. PAST MEDICAL HISTORY: As per HPI PAST SURGICAL HISTORY: Multiple laparoscopy for endometriosis, HYST, bladder, sinus, SOCIAL HISTORY: Denies tobacco, illicit drugs. Occasional alcohol. FAMILY HISTORY: Non contributory ALLERGIES: Please see below. REVIEW OF SYSTEMS: HEENT: Denies sore throat/headache CARDIOVASCULAR: Denies chest pain/palpitations RESPIRATORY: Denies shortness of breath/cough GASTROINTESTINAL: + nausea. No vomiting. +diarrhea GENITOURINARY: Denies dysuria/urinary urgency. MUSCULOSKELETAL: Denies myalgias/arthralgias NEUROLOGICAL: Denies any focal weakness HOME MEDICATIONS: Please see below. PHYSICAL EXAMINATION: Vitals: (see below) General: No acute distress, laying comfortably in bed. HEENT: Moist mucous membranes. Neck: No JVD or lymphadenopathy Cardiac: RRR, No murmurs Pulm: Clear to auscultation b/l. No wheezing, rhonchi Abd: Mild TTP RLQ and epigastric region. No rebound/guarding/rigidity. ND + BS Ext: No edema or cyanosis Back: TTP right paraspinal region/flank region LABORATORY DATA: See below. IMAGING: CT Abd/pelvis 04/20 unremarkable. ASSESSMENT/PLAN: 1. Intractable Abd pain. ? Etiology. Discussed with Dr. Martinez who has seen pt in the ED, and notes unlikely to be surgical in nature, with no need for reimaging at this time unless pain worsens or continues to persist. Pt currently denies n/v. Denies any rash at the region. Pt with WBC 10, lactic acid wnl. ? neuropathic in nature given burning sensation; will check CT Lumbar spine. Zofran, PPI, Toradol PRN. Will consider re-imaging if abd pain does not improve. Appreciate Dr. Martinez's input 2. Asthma - stable 3. H/o endometriosis s/p multiple laparoscopies and HYST 4. GERD on PPI DVT prophy: SCDs Vital Signs Vital Signs Date Time Temp Pulse Resp B/P (MAP) Pulse Ox O2 Delivery O2 Flow Rate FiO2 04/21/20 10:00 68 18 133/62 (85) 100 Room Air 04/21/20 06:48 98.3 Laboratory Data Labs 24H Laboratory Tests 2 04/21/20 06:50: Immature Granulocyte % (Auto) 0.5, Neutrophils (%) (Auto) 76.7H, Lymphocytes (%) (Auto) 15.7L, Monocytes (%) (Auto) 6.6H, Eosinophils (%) (Auto) 0.3, Basophils (%) (Auto) 0.2, Neutrophils # (Auto) 8.2, Lymphocytes # (Auto) 1.7, Monocytes # (Auto) 0.7, Eosinophils # (Auto) 0.0, Basophils # (Auto) 0.0, Nucleated Red Blood Cells % (auto) 0.0, Total Bilirubin 0.5, Direct Bilirubin < 0.1, Aspartate Amino Transf (AST/SGOT) 25, Alanine Aminotransferase (ALT/SGPT) 26, Alkaline Phosphatase 37L, Total Creatine Kinase 94, Creatine Kinase MB < 1.0, Creatine Kinase MB Relative Index 1.06, Troponin I < 0.02, Total Protein 7.4, Albumin 3.8, Albumin/Globulin Ratio 1.1L, Lipase 115 04/21/20 07:48: Lactic Acid Level 1.4 04/21/20 09:46: Urine Color YELLOW, Urine Appearance HAZY, Urine pH 6.0, Urine Specific [place] 1.015, Urine Protein NEGATIVE, Urine Glucose (UA) NEGATIVE, Urine Ketones 1+H, Urine Blood 1+H, Urine Nitrite NEGATIVE, Urine Bilirubin NEGATIVE, Urine Urobilinogen 0.2, Urine Leukocyte Esterase TRACEH, Urine WBC (Auto) 3, Urine RBC (Auto) 1, Urine Hyaline Casts (Auto) 0, Urine Bacteria (Auto) NEGATIVE, Urine Squamous Epithelial Cells 0, Urine Amorphous Sediment SMALLH, Urine Mucus (Auto) SMALL, Urine Sperm (Auto) CBC/BMP Laboratory Tests 04/21/20 06:50 Microbiology Microbiology 04/21/20 Urine Culture, Received Pending Home Medications Scheduled Gabapentin (Gabapentin) 100 Mg Capsule, 100 MG PO Q8H Lovastatin (Lovastatin) 20 Mg Tablet, 20 MG PO QHS Multivitamin with Minerals (Multiple Vitamin) 1 Each Tablet, 1 TAB PO DAILY Scheduled PRN Esomeprazole Magnesium (Esomeprazole Magnesium) 20 Mg Capsule.dr, 20 MG PO DAILY PRN for INDIGESTION Fluticasone Propionate (Fluticasone Propionate) 16 Gm [place].susp, 2 SPRAY NARES DAILY PRN for CONGESTION Lorazepam (Ativan) 0.5 Mg Tab, 0.5 MG PO QHS PRN for ANXIETY Ondansetron (Ondansetron Odt) 4 Mg Tab.rapdis, 4 MG PO Q6H PRN for NAUSEA OR VOMITING Simethicone (Simethicone) 180 Mg Capsule, 180 MG PO TID PRN for GAS PAIN Allergies Coded Allergies: Penicillins (Verified Allergy, Unknown, RASH HIVES, 12/13/18) Quinolones (Verified Allergy, Unknown, 12/13/18) Sulfa (Sulfonamide Antibiotics) (Verified Allergy, Unknown, rash, 12/13/18) codeine (Verified Allergy, Unknown, disorients ; N/V, 12/13/18) lidocaine (Verified Allergy, Unknown, hypotension tongue numb, 12/13/18) meperidine (Verified Allergy, Unknown, n/v disorients, 12/13/18) methylprednisolone (Verified Allergy, Unknown, hives, 12/13/18) metoclopramide (Verified Allergy, Unknown, hypersensitivity, 12/13/18) morphine (Verified Allergy, Unknown, N/V DISORIENTED, 12/13/18) moxifloxacin (Verified Allergy, Unknown, hives, 12/13/18) pneumococcal vaccine (Verified Allergy, Unknown, rash cellulitis flu symptoms, 12/13/18) prednisone (Verified Allergy, Unknown, RASH, 12/13/18) prochlorperazine (Verified Allergy, Unknown, hypersensitivity, 12/13/18) pseudoephedrine (Verified Allergy, Unknown, hypersensitivity, 12/13/18) sulfamethizole (Verified Allergy, Unknown, 12/13/18) trimethoprim (Verified Allergy, Unknown, 12/13/18) A-FIB/CHADSVASC A-FIB History Current/History of A-Fib/PAF?: No LILIAM SHI MD Apr 21, 2020 14:40
[2020-04-21] MEDS: NS 1,000 ML IV SCH (15:40)
[2020-04-21] MEDS: KETOROLAC 30 MG/ML 1ML VIAL IV SCH ×2 (15:40→20:53)
[2020-04-21] MEDS: PANTOPRAZOLE 40MG VIAL (C9113 PER 1) IV SCH (15:46)
[2020-04-21 17:19] LABS: BASO % 0.2 % (0.0-1.0); EOS % 0.1 % (0.0-3.0); HEMOGLOBIN 14.5 g/dl (12.0-15.5); LYMPH # 1.3 10^3/uL (1.5-5.0); LYMPH % 10.2 % (24.0-44.0); MEAN CORPUSCULAR HGB CONC 33.7 g/dl (32.0-36.5); MONO # 0.7 10^3/uL (0.0-0.8); MONO % 5.7 % (0.0-5.0); NEUTROPHILS # 10.3 10^3/uL (1.5-8.5); NEUTROPHILS % 83.4 % (36.0-66.0); PLATELET COUNT, AUTOMATED 313 10^3/uL (150-450); WHITE BLOOD COUNT 12.3 10^3/uL (4.0-10.0)
[2020-04-21] MEDS: GABAPENTIN 100 MG CAP PO SCH (17:20)
[2020-04-21 17:30] LABS: INR 0.96
[2020-04-21 17:31] LABS: PARTIAL THROMBOPLASTIN TIME 29.1 SECONDS (25.0-38.4)
[2020-04-21 18:02] LABS: BLOOD UREA NITROGEN 15 MG/DL (7-18); CALCIUM LEVEL 8.7 MG/DL (8.5-10.1); CARBON DIOXIDE LEVEL 27 MEQ/L (21-32); CHLORIDE LEVEL 107 MEQ/L (98-107); GLOMERULAR FILTRATION RATE > 60.0 (>51); GLUCOSE, FASTING 98 MG/DL (70-100); SODIUM LEVEL 137 MEQ/L (136-145)
[2020-04-21 20:00] VITALS: BP 124/72
[2020-04-21] MEDS: SIMVASTATIN 20 MG TAB PO SCH (20:53)
[2020-04-21] MEDS: LORazepam 0.5 MG TAB PO PRN (20:53)
[2020-04-21] MEDS: ENOXAPARIN 40MG/0.4ML SYRINGE (J1650 PER 10MG) SC SCH (20:54)
[2020-04-22] MEDS: GABAPENTIN 100 MG CAP PO SCH ×3 (00:30→15:42)
[2020-04-22 02:00] VITALS: BP 120/65
[2020-04-22] MEDS: KETOROLAC 30 MG/ML 1ML VIAL IV SCH ×4 (02:39→20:51)
[2020-04-22] MEDS: ONDANSETRON 4MG/2ML VIAL IV PRN ×2 (02:39→11:35)
[2020-04-22] MEDS: NS 1,000 ML IV SCH (02:41)
[2020-04-22 06:00] VITALS: BP 117/55
[2020-04-22 07:40] LABS: HEMATOCRIT 39.8 % (36.0-47.0); HEMOGLOBIN 12.9 g/dl (12.0-15.5); MEAN CORPUSCULAR HEMOGLOBIN 28.2 pg (27.0-33.0); MEAN CORPUSCULAR HGB CONC 32.4 g/dl (32.0-36.5); MEAN CORPUSCULAR VOLUME 87.1 fl (80.0-96.0); PLATELET COUNT, AUTOMATED 256 10^3/uL (150-450); RED BLOOD COUNT 4.57 10^6/uL (4.00-5.40); WHITE BLOOD COUNT 9.9 10^3/uL (4.0-10.0)
[2020-04-22 07:59] LABS: ALBUMIN 3.1 GM/DL (3.2-5.2); ALT/SGPT 21 U/L (12-78); BILIRUBIN,TOTAL 0.5 MG/DL (0.2-1.0); BLOOD UREA NITROGEN 13 MG/DL (7-18); CALCIUM LEVEL 8.5 MG/DL (8.5-10.1); CARBON DIOXIDE LEVEL 26 MEQ/L (21-32); CHLORIDE LEVEL 110 MEQ/L (98-107); CREATININE FOR GFR 0.55 MG/DL (0.55-1.30); GLOMERULAR FILTRATION RATE > 60.0 (>51); GLUCOSE, FASTING 73 MG/DL (70-100); MAGNESIUM LEVEL 2.2 MG/DL (1.8-2.4); POTASSIUM SERUM 3.9 MEQ/L (3.5-5.1); SODIUM LEVEL 141 MEQ/L (136-145); TOTAL PROTEIN 6.1 GM/DL (6.4-8.2)
[2020-04-22] MEDS: PANTOPRAZOLE 40MG VIAL (C9113 PER 1) IV SCH (09:37)
[2020-04-22 10:00] VITALS: BP 147/80
[2020-04-22] MEDS: GASTROGRAFIN SOLUTION 30ML PO SCH ×2 (11:11→11:13)
[2020-04-22] MEDS ORDERED: ISOVUE-370 76% 100ML VIAL As Ordered ONE (12:38)
--- NOTE | 2020-04-22 12:50 | IPNPDOC ---
Text Note Date of Service The patient was seen on 04/22/20. NOTE Subjective: Pt notes her pain is better controlled, and is not as severe as y day, however still has persisitent RLQ pain. PHYSICAL EXAMINATION: Vitals: (see below) General: No acute distress, laying comfortably in bed. HEENT: Moist mucous membranes. Neck: No JVD or lymphadenopathy Cardiac: RRR, No murmurs Pulm: Clear to auscultation b/l. No wheezing, rhonchi Abd: TTP RLQ and epigastric region. No rebound/guarding/rigidity. ND + BS Ext: No edema or cyanosis Back: TTP right paraspinal region/flank region LABORATORY DATA: See below. IMAGING: CT Abd/pelvis 04/20 unremarkable. ASSESSMENT/PLAN: 1. Intractable Abd pain. ? Etiology. Discussed with Dr. Martinez who has seen pt in the ED, and notes unlikely to be surgical in nature. GIven persistent pain, will send for CT a/p w PO and IV contrast. Leukocytosis improving. ?Gastroenteritis given diarrha/nausea on presentation. Denies any rash at the region. lactic acid wnl. ? neuropathic in nature given burning sensation; will check CT Lumbar spine. Zofran, PPI, Toradol PRN. Appreciate Dr. Martinez's inpu t. Advance diet to clears if repeat CT negative and pain improves. 2. Asthma - stable 3. H/o endometriosis s/p multiple laparoscopies and HYST 4. GERD on PPI DVT prophy: SCDs VS,Fishbone, I+O VS, Fishbone, I+O Laboratory Tests 04/21/20 16:48 04/22/20 06:25 Vital Signs Date Time Temp Pulse Resp B/P (MAP) Pulse Ox O2 Delivery O2 Flow Rate FiO2 04/22/20 10:00 97.5 81 18 147/80 (102) 100 Room Air I&O- Last 24 Hours up to 6 AM 04/22/20 06:00 Intake Total 1050.1545 ml Output Total 200 ml Balance 850.1545 ml LILIAM SHI MD Apr 22, 2020 12:50
[2020-04-22 14:00] VITALS: BP 127/72
[2020-04-22 18:00] VITALS: BP 131/69
[2020-04-22] MEDS ORDERED: NS 1,000 ML IV SCH (18:00)
[2020-04-22] MEDS: SIMVASTATIN 20 MG TAB PO SCH (20:50)
[2020-04-22] MEDS: LORazepam 0.5 MG TAB PO PRN (20:50)
[2020-04-22] MEDS: ENOXAPARIN 40MG/0.4ML SYRINGE (J1650 PER 10MG) SC SCH (20:51)
[2020-04-22] MEDS: ACETAMINOPHEN 500 MG TAB PO PRN (20:51)
[2020-04-22 22:00] VITALS: BP 120/60
[2020-04-23] MEDS: GABAPENTIN 100 MG CAP PO SCH ×3 (00:35→15:13)
[2020-04-23 02:00] VITALS: BP 132/63
[2020-04-23] MEDS: KETOROLAC 30 MG/ML 1ML VIAL IV SCH ×3 (03:16→15:13)
[2020-04-23 06:00] VITALS: BP 130/79
[2020-04-23 07:28] LABS: BASO % 0.3 % (0.0-1.0); EOS # 0.1 10^3/uL (0.0-0.5); EOS % 1.2 % (0.0-3.0); HEMATOCRIT 37.6 % (36.0-47.0); HEMOGLOBIN 12.1 g/dl (12.0-15.5); LYMPH # 1.3 10^3/uL (1.5-5.0); LYMPH % 19.4 % (24.0-44.0); MEAN CORPUSCULAR HEMOGLOBIN 28.1 pg (27.0-33.0); MEAN CORPUSCULAR HGB CONC 32.2 g/dl (32.0-36.5); MEAN CORPUSCULAR VOLUME 87.4 fl (80.0-96.0); MONO # 0.7 10^3/uL (0.0-0.8); MONO % 10.9 % (0.0-5.0); NEUTROPHILS # 4.4 10^3/uL (1.5-8.5); NEUTROPHILS % 67.7 % (36.0-66.0); PLATELET COUNT, AUTOMATED 232 10^3/uL (150-450); WHITE BLOOD COUNT 6.5 10^3/uL (4.0-10.0)
[2020-04-23 08:15] LABS: ALBUMIN 2.9 GM/DL (3.2-5.2); ALT/SGPT 17 U/L (12-78); BILIRUBIN,TOTAL 0.4 MG/DL (0.2-1.0); BLOOD UREA NITROGEN 9 MG/DL (7-18); CALCIUM LEVEL 8.1 MG/DL (8.5-10.1); CARBON DIOXIDE LEVEL 27 MEQ/L (21-32); CHLORIDE LEVEL 111 MEQ/L (98-107); CREATININE FOR GFR 0.61 MG/DL (0.55-1.30); GLOMERULAR FILTRATION RATE > 60.0 (>51); GLUCOSE, FASTING 83 MG/DL (70-100); LIPASE 164 U/L (73-393); POTASSIUM SERUM 3.5 MEQ/L (3.5-5.1); SODIUM LEVEL 143 MEQ/L (136-145); TOTAL PROTEIN 5.7 GM/DL (6.4-8.2)
[2020-04-23] MEDS: PANTOPRAZOLE 40MG VIAL (C9113 PER 1) IV SCH (08:49)
[2020-04-23 10:00] VITALS: BP 123/70
[2020-04-23] MEDS ORDERED: GABA-1171 PO (11:09)
--- NOTE | 2020-04-23 11:34 | DS.PDOC ---
Discharge Summary General Date of Admission Apr 22, 2020 at 17:49 Date of Discharge 04/23/20 Attending Physician: LILIAM SHI MD Specialist/Consultants Involve: Miguel A Martinez Discharge Summary PROCEDURES PERFORMED DURING STAY: None. ADMITTING/DISCHARGE DIAGNOSES: 1. ?Acute pancreatitis, resolved. 2. Acute on chronic lower abd pain, resolved 3. H/o endometriois; following with Dr. Landers and Photography Coordinator outpt and will continue to do so 4. h/o asthma 5. h/o gerd COMPLICATIONS/CHIEF COMPLAINT: Abd pain HISTORY OF PRESENT ILLNESS/HOSPITAL COURSE: This is a 54 y/o F with PMHx Asthma, GERD, HLD, Endometriosis s/p multiple laparoscopies who presents c/o abd pain. Pt presented to ED yesterday, had a CT a/p that was unremarkable. 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 Describes pain as sharp and burning, worse with movement and eating. No Fevers/chills. States she had a similar episode 2 months ago and it subsided on its own. Pt initially reported nausea, no vomiting, and an episode of diarrhea this am. Prior BM Yesterday was normal. Pt denies CP/SOB/palpitations. No sick contacts or recent travels. Over the course of hospitalization, pt had repeat CT a/p with ?pancreatitis. Pt's pain improved, and she was able to tolerate a regular diet. Pt has also been evaluted by Dr. Martinez and no surgical intervention recommended. Pt is hemodynamically stable, pain resolved, and will be d/c home. DISCHARGE MEDICATIONS: Please see below. ALLERGIES: Please see below. PHYSICAL EXAMINATION ON DISCHARGE: Vitals: (see below) General: No acute distress, laying comfortably in bed. HEENT: Moist mucous membranes. Neck: No JVD or lymphadenopathy Cardiac: RRR, No murmurs Pulm: Clear to auscultation b/l. No wheezing, rhonchi Abd: NT/ND + BS Ext: No edema or cyanosis LABORATORY DATA: Please see below. IMAGING: PROGNOSIS: Fair ACTIVITY: As tolerated. DIET: As tolerated DISCHARGE PLAN/DISPOSITION: Home DISCHARGE INSTRUCTIONS: 1. F/u with Dr. Landers in 1 week. G/u with Photography Coordinator in 1 week. Return to ED if symptoms worsen. DISCHARGE CONDITION: Stable. TIME SPENT ON DISCHARGE: 37 minutes Vital Signs/I&Os Vital Signs Date Time Temp Pulse Resp B/P (MAP) Pulse Ox O2 Delivery O2 Flow Rate FiO2 04/23/20 06:00 97.7 71 18 130/79 (96) 96 Room Air I&O- Last 24 Hours up to 6 AM 04/23/20 05:59 Intake Total 1240 ml Output Total 1300 ml Balance -60 ml Laboratory Data Labs 24H Laboratory Tests 2 04/23/20 06:44: Immature Granulocyte % (Auto) 0.5, Neutrophils (%) (Auto) 67.7H, Lymphocytes (%) (Auto) 19.4L, Monocytes (%) (Auto) 10.9H, Eosinophils (%) (Auto) 1.2, Basophils (%) (Auto) 0.3, Neutrophils # (Auto) 4.4, Lymphocytes # (Auto) 1.3L, Monocytes # (Auto) 0.7, Eosinophils # (Auto) 0.1, Basophils # (Auto) 0.0, Nucleated Red Blood Cells % (auto) 0.0, Anion Gap 5L, Glomerular Filtration Rate > 60.0, Calcium Level 8.1L, Total Bilirubin 0.4, Aspartate Amino Transf (AST/SGOT) 15, Alanine Aminotransferase (ALT/SGPT) 17, Alkaline Phosphatase 30L, Total Protein 5.7L, Albumin 2.9L, Albumin/Globulin Ratio 1.0L, Lipase 164 CBC/BMP Laboratory Tests 04/23/20 06:44 Microbiology Microbiology 04/21/20 Blood Culture - Preliminary, Resulted No growth after 24 hours . All specim... 04/21/20 Blood Culture - Preliminary, Resulted No growth after 24 hours . All specim... 04/21/20 Urine Culture - Final, Complete Staphylococcus Epidermidis Discharge Medications Scheduled Gabapentin (Gabapentin) 100 Mg Capsule, 100 MG PO Q8H Lovastatin (Lovastatin) 20 Mg Tablet, 20 MG PO QHS, (Reported) Multivitamin with Minerals (Multiple Vitamin) 1 Each Tablet, 1 TAB PO DAILY, (Reported) Scheduled PRN Esomeprazole Magnesium (Esomeprazole Magnesium) 20 Mg Capsule.dr, 20 MG PO DAILY PRN for INDIGESTION, (Reported) Fluticasone Propionate (Fluticasone Propionate) 16 Gm [place].susp, 2 SPRAY NARES DAILY PRN for CONGESTION, (Reported) Lorazepam (Ativan) 0.5 Mg Tab, 0.5 MG PO QHS PRN for ANXIETY, (Reported) Ondansetron (Ondansetron Odt) 4 Mg Tab.rapdis, 4 MG PO Q6H PRN for NAUSEA OR V OMITING, (Reported) Simethicone (Simethicone) 180 Mg Capsule, 180 MG PO TID PRN for GAS PAIN, (Reported) Allergies Coded Allergies: Penicillins (Verified Allergy, Unknown, RASH HIVES, 12/13/18) Quinolones (Verified Allergy, Unknown, 12/13/18) Sulfa (Sulfonamide Antibiotics) (Verified Allergy, Unknown, rash, 12/13/18) codeine (Verified Allergy, Unknown, disorients ; N/V, 12/13/18) lidocaine (Verified Allergy, Unknown, hypotension tongue numb, 12/13/18) meperidine (Verified Allergy, Unknown, n/v disorients, 12/13/18) methylprednisolone (Verified Allergy, Unknown, hives, 12/13/18) metoclopramide (Verified Allergy, Unknown, hypersensitivity, 12/13/18) morphine (Verified Allergy, Unknown, N/V DISORIENTED, 12/13/18) moxifloxacin (Verified Allergy, Unknown, hives, 12/13/18) pneumococcal vaccine (Verified Allergy, Unknown, rash cellulitis flu symptoms, 12/13/18) prednisone (Verified Allergy, Unknown, RASH, 12/13/18) prochlorperazine (Verified Allergy, Unknown, hypersensitivity, 12/13/18) pseudoephedrine (Verified Allergy, Unknown, hypersensitivity, 12/13/18) sulfamethizole (Verified Allergy, Unknown, 12/13/18) trimethoprim (Verified Allergy, Unknown, 12/13/18) LILIAM SHI MD Apr 23, 2020 11:34
[2020-04-23] MEDS: ACETAMINOPHEN 500 MG TAB PO PRN ×2 (12:32→18:55)
[2020-04-23 14:00] VITALS: BP 136/79
[2020-04-23] MEDS: NS 1,000 ML IV SCH (19:39)
[2020-04-23 19:42] VITALS: BP 130/76
[2020-04-23] MEDS: ENOXAPARIN 40MG/0.4ML SYRINGE (J1650 PER 10MG) SC SCH (19:45)
[2020-04-23] MEDS ORDERED: IBUPROFEN 400 MG TAB PO PRN (21:00)
[2020-04-23] MEDS: ONDANSETRON 4MG/2ML VIAL IV PRN (21:33)
[2020-04-23] MEDS: LORazepam 0.5 MG TAB PO PRN (21:33)
[2020-04-23] MEDS: SIMVASTATIN 20 MG TAB PO SCH (21:33)
[2020-04-24] MEDS: GABAPENTIN 100 MG CAP PO SCH ×3 (00:21→15:48)
[2020-04-24 02:00] VITALS: BP 130/75
[2020-04-24 06:00] VITALS: BP 122/64
[2020-04-24] MEDS: ACETAMINOPHEN 500 MG TAB PO PRN (06:36)
[2020-04-24] MEDS: NS 1,000 ML IV SCH (06:39)
[2020-04-24] MEDS: PANTOPRAZOLE 40MG VIAL (C9113 PER 1) IV SCH (09:38)
[2020-04-24 10:00] VITALS: BP 140/81
[2020-04-24 14:00] VITALS: BP 111/61
[2020-04-24 18:00] VITALS: BP 137/73
--- NOTE | 2020-04-24 18:33 | IPNPDOC ---
Text Note Date of Service The patient was seen on 04/24/20. NOTE Subjective: Pt did not leave yesterday as she notes she was afraid she may have pain at home. She was placed NPO, diet advanced this am to clears, full liquid and pt tolerated well. She has alot of anxiety regarding her chronic pain. She tells me she is not having any pain this morning and afternoon. When asked about going home, she states she's not quite sure as she may have pain in the future. Pt has been reassured regarding appropriate diet and f/u with her PCP Dr. Landers. PHYSICAL EXAMINATION: Vitals: (see below) General: No acute distress, laying comfortably in bed. HEENT: Moist mucous membranes. Neck: No JVD or lymphadenopathy Cardiac: RRR, No murmurs Pulm: Clear to auscultation b/l. No wheezing, rhonchi Abd: TTP RLQ and epigastric region. No rebound/guarding/rigidity. ND + BS Ext: No edema or cyanosis Back: TTP right paraspinal region/flank region LABORATORY DATA: See below. IMAGING: CT Abd/pelvis 04/20 unremarkable. ASSESSMENT/PLAN: 1. Abd pain.Resolved. ?Gastroenteritis given diarrhea/nausea on presentation. Discussed with Dr. Martinez who has seen pt in the ED, and notes unlikely to be surgical in nature. Repeat CT a/p w PO and IV contrast with ?pancreatitis. Diet advanced slowely and tolerated. Lipase wnl. Leukocytosis improving. Denies any rash at the region. lactic acid wnl. Zofran, PPI, Toradol PRN. Appreciate Dr. Martinez's input. Pt is to f/u with Dr. Landers later this week for follow up. If recurrent epigastric discomfort, she may then be referred by Dr. Landers to GI. 2. Asthma - stable 3. H/o endometriosis s/p multiple laparoscopies and HYST 4. GERD on PPI DVT prophy: SCDs Pt to be d/c home today. Please see d/c summary from 04/23. VS,Fishbone, I+O VS, Fishbone, I+O Vital Signs Date Time Temp Pulse Resp B/P (MAP) Pulse Ox O2 Delivery O2 Flow Rate FiO2 04/24/20 14:00 98.7 78 18 111/61 (78) 98 Room Air I&O- Last 24 Hours up to 6 AM 04/24/20 06:00 Intake Total 860 ml Output Total 650 ml Balance 210 ml LILIAM SHI MD Apr 24, 2020 18:33
--- NOTE | 2020-05-01 11:02 | CR ---
DATE: 04/21/2020 REASON FOR CONSULTATION: Abdominal pain of unknown etiology. HISTORY OF PRESENT ILLNESS: Patient is a 54-year-old woman who presented to the emergency department on April 21 complaining of severe abdominal pain, fairly diffusely across the abdomen. She reports that she has had abdominal issues for years. She reports having occasional episodes of cramping pain. She used to be troubled significantly by endometriosis. Underwent multiple surgical procedures for same. Occasionally she will have some nausea. She has not generally required evaluation in the emergency department. She has seen Dr. Leslie of gastroenterology once fairly recently. She did have an upper gastrointestinal (GI) series and small-bowel follow-through in July 2019. Patient reports that starting on , April 19, she noted more significant pain in the mid to lower abdomen and particularly extending into the right lower quadrant. She reports that the pain comes in waves, but that the waves of pain can be continuous and have been continuous for hours. She was seen in the emergency department on April 20. At that visit, she presented in the mid to late afternoon. She was found to have normal vital signs. She underwent evaluation with some laboratory studies and had a CT scan of the abdomen and pelvis. No etiology for her pain was identified, and she was discharged home in the late evening. She returned early this morning complaining that the pain had not improved and may actually have worsened somewhat. She again describes waves of pain, though she cannot quantify the duration or number of waves. She has had a little nausea today but no vomiting. She had some repeat laboratory studies done. Patient has been requesting pain medications and was treated with Toradol and some ketamine and also received a dose of Haldol and Benadryl. She had some improvement for a time but then noted persistence of the pain. I have been asked to evaluate the patient regarding possibility of an underlying surgical problem for her pain. ALLERGIES: Patient's medical record lists allergies to multiple medications, including PENICILLINS, QUINOLONES, SULFONAMIDE ANTIBIOTICS, CODEINE, LIDOCAINE, MEPERIDINE, METHYLPREDNISOLONE, METOCLOPRAMIDE, MORPHINE, MOXIFLOXACIN, PNEUMOCOCCAL VACCINE, PREDNISONE, COMPAZINE, PSEUDOEPHEDRINE, MEDICATIONS: Recorded at the time of her presentation today include: - esomeprazole 20 mg by mouth daily as needed for indigestion - fluticasone nasal spry, two sprays daily as needed for congestion - lorazepam 0.5 mg by mouth every night as needed for anxiety - lovastatin 20 mg by mouth every night - multivitamin with minerals daily - Zofran 4 mg by mouth as needed for nausea or vomiting - simethicone 180 mg by mouth three times a day as needed for gas pains. SURGICAL HISTORY: 1. Patient repots having had a section in the distant past. 2. She had a hysterectomy with a bilateral salpingo-oophorectomy back in 1995. 3. Patient reports having had approximately 11 laparoscopies through the years for endometriosis. 4. She had a robotic-assisted obliteration of endometriosis approximately [address] Waters. 5. The patient has undergone an upper endoscopy in early 2018 as well as one back in 2007. 6. She has had a colonoscopy in 2008 that demonstrated diverticulosis. MEDICAL HISTORY: Significant for: 1. History of endometriosis. 2. She has had a history of hypercholesterolemia and some gastroesophageal reflux. 3. She has had her issues with abdominal pain through the years, though it is not clear if this represented episodes of different sorts of pain or all the same sorts of symptomatology. SOCIAL HISTORY: Patient is a former smoker. Apparently has used alcohol socially. FAMILY HISTORY: Patient's father reportedly had Crohn's disease and/or ulcerative colitis and coronary disease. her mother was with hypertension, high cholesterol, and breast cancer. REVIEW OF SYSTEMS: Patient denies any chest pain or palpitations. She has had no cough, wheezing, or sputum production currently. She is not having any dysuria or hematuria. She has not had any melena or hematochezia. She has had no vomiting with this episode though has felt somewhat nauseous. She denies any history of deep venous thrombosis (DVT) or pulmonary embolus She has had no history of seizure or stroke,. There are no active orthopedic issues. PHYSICAL EXAMINATION: Patient is lying on the hospital stretcher when I entered the room. She is occasionally moaning softly. She moves her legs back and forth but is otherwise lying fairly quietly. She does respond appropriately to questions and is cooperative with the exam and the history. Her vital signs in the emergency department show that she was afebrile on presentation. Her pulse has been in the 60s and 70s. Blood pressure is normal with a normal room air oxygen saturation. Skin is warm and dry. Sclerae are anicteric. The mucous membranes are moist. The neck is supple without mass. Heart exam shows a regular rate and rhythm without apparent murmur. The lungs are clear to auscultation bilaterally. The abdomen is perhaps mildly obese. She has a couple of small scars distributed on the lower abdomen. She has an old low transverse scar. She does have bowel sounds present in all four quadrants. There is no evident hernia. There is no tympani to percussion. There is some very mild tenderness to percussion. On palpation, the abdomen is found to be soft throughout. She does complain of some mild, fairly diffuse tenderness on palpation. No masses appreciated. There is no rebound or guarding. Extremities are without edema. She has palpable radial and pedal pulses. LABORATORY DATA: Today, include a CBC showing a white count of 11, hemoglobin of 14, hematocrit 44, and platelet count of 296,000. Differential count shows 77% neutrophils, 16% lymphocytes, and 7% monocytes. Chemistry profile today showed a lactic acid normal at 1.4. Her liver function tests are normal. Troponin is less than 0.02, and her protein and albumin are normal. Lipase is normal at 115. Urinalysis was not suggestive of a urinary tract infection. Her laboratory studies on April 20 were quite similar. Her white count was 9000 with a hematocrit of 14, hematocrit of 43, and a platelet count of 314,000. Chemistry profile again showed normal liver function tests. Her CT scan of the abdomen and pelvis from April 20 I reviewed personally as well as reviewing the report from the radiologist. The scan shows no obvious pathology to account for her discomfort. The uterus is absent. The appendix is seen and shows no evidence of appendicitis. Gallbladder is normal. Small and large bowel appear normal throughout. IMPRESSION: Abdominal pain of unclear etiology. Patient reports pains over a period of years. It is difficult without a more exhaustive review of her past history and workup to know if these episodes have all been of a similar nature or if this just represents a series of events that occurred and may have been completely unrelated. She has had pain over the last 48 hours or so now, which she describes as coming in waves with some nausea but no vomiting. Her labs are unremarkable. She had a CT scan yesterday that showed no obvious abnormality to account for her discomfort. RECOMMENDATIONS: I think at this point there is clearly no indication for urgent surgical intervention. I think at this point her treatment should be symptomatic, directed toward alleviating her discomfort. Her scan did not show any evidence for a bowel obstruction, though she is certainly at risk given her multiple prior surgeries for endometriosis and her hysterectomy. She has had prior upper and lower endoscopies without any findings other than some inflammatory changes in the stomach and some diverticulosis of the colon. If her symptoms worsen, then repeat imaging may be warranted, but I would not recommend repeating her scan today, as the test yesterday is barely 14 hours old. If her symptoms progress or change in some way, I would be happy to re-evaluate her to see if a problem can be identified which would warrant further treatment. LAMAR
--- NOTE | 2020-05-24 08:47 | REP ---
CT OF THE ABDOMEN AND PELVIS WITH IV AND WITH ORAL CONTRAST: HISTORY: Right lower quadrant and epigastric pain. COMPARISON: CT study from 04/20/20. TECHNIQUE: 100 ml of intravenous Isovue 370. FINDINGS: Preliminary digital oil scout radiograph is unremarkable. The lung bases are essentially clear. Minimal platelike atelectasis versus linear fibrosis on the left. There is no evidence of pleural effusion or upper abdominal ascites. The liver and the spleen are normal in size, homogeneous in texture. There is a tiny accessory splenule. Normal adrenals are seen. The kidneys enhance symmetrically and are morphologically intact. No abnormality is noted in the gallbladder. There is mild peripancreatic and periduodenal edema. Some descending duodenal mural thickening is seen. There is a thin sliver of fluid in the pericolic gutter on the right. The findings are new when compared with the prior study and suggestive of pancreatitis picture. No mass or adenopathy is observed. No CT evidence to suggest appendicitis. The small and large bowel loops are unremarkable. No abdominal wall defect is seen. The uterus is surgically absent. No adnexal pathology is seen. IMPRESSION: New finding of mural thickening in the descending duodenum and periduodenal and peripancreatic edema consistent with pancreatitis. Otherwise, no acute abnormality. MTDD
--- NOTE | 2020-05-24 08:48 | REP ---
CT LUMBAR SPINE WITH INTRAVENOUS (IV) CONTRAST HISTORY: Back pain. CT CONTRAST DOSE: 100 mL of intravenous Isovue-370. CT FINDINGS: Lumbar vertebral body heights are preserved. Alignment is normal. There is no evidence of spondylolysis or spondylolisthesis. No bony destructive lesion is seen. No fracture or collapse is noted. There is minimal narrowing and anterior osteophyte formation at L2-3. There is diffuse disc bulging at L4-5, which appears to indent the ventral aspect of the thecal sac. There mild central canal stenosis at L4-5 as a result of this. No focal disc protrusion is seen. No paravertebral soft tissue mass is seen. There is minimal facet hypertrophy bilaterally at L4-5 and L5-S1. IMPRESSION: Diffuse disc bulging at L4-5 with mild central canal stenosis at L4-5. Mild degenerative disc changes at L2-3. 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 No acute bony abnormality. MTDD
== END 2020-04-24 19:43 | disposition home or self-care (01) | DRG 282 ==
LOC: EDBD 06:40 → M ED 06:40 → M ED INP 06:41 → ENRESERV 14:35 → M MS5PR 16:00 → OBSVTOIN 04-22 17:49
PROVIDERS: ADMIT Internal Medicine; ATTEND Internal Medicine
DX: K85.90 Acute pancreatitis without necrosis or infection, unspecified (principal); E78.5 Hyperlipidemia, unspecified; J45.909 Unspecified asthma, uncomplicated; K21.9 Gastro-esophageal reflux disease without esophagitis; R19.7 Diarrhea, unspecified; R11.0 Nausea; R10.31 Right lower quadrant pain; Z79.899 Other long term (current) drug therapy; Z88.0 Allergy status to penicillin; Z88.2 Allergy status to sulfonamides; Z88.5 Allergy status to narcotic agent; Z88.1 Allergy status to other antibiotic agents; Z88.8 Allergy status to other drugs, medicaments and biological substances

== ENCOUNTER → 2020-06-25 | Outpatient (CLI) | payer SELFPAY ==
[~2020-06-25] MED LIST changes: +ESOM0.1C PO; +FLUTISP NARES; +GABA-1171 PO; +LOVA20TA2 PO; +PARO5TAB PO
--- NOTE | 2020-06-25 08:59 | REP ---
INDICATION: OTHER CHRONIC PANCREATITIS, MRCP. COMPARISON: None. TECHNIQUE: Multiple heavily T2 weighted sequences are obtained in the axial and coronal planes. 3D MIP reconstruction images are performed. FINDINGS: There is no intrahepatic or extrahepatic biliary dilatation. There is no gross biliary stricture and no focal dilatation. Common bile duct has a maximum diameter of approximately 5 mm. Pancreatic duct is normal in caliber. Gallbladder is mildly distended with no wall thickening or edema. No internal filling defect or gallstone is seen. There is no evidence of choledocholithiasis. The liver, spleen, adrenals, pancreas and kidneys are grossly unremarkable. I see no adenopathy or free fluid in the abdomen. IMPRESSION: Negative MRCP exam. <Electronically signed by Lm Patiño > 06/25/20 [id number]
== END ==
LOC: M RAD 06:29
PROVIDERS: ATTEND Family Medicine
DX: K86.1 Other chronic pancreatitis (principal)

== ENCOUNTER → 2020-07-25 | Outpatient (CLI) | payer SELFPAY ==
[~2020-07-25] MED LIST changes: +CALC-362 PO; -CHEW500C2 PO; -MONT10TA4; +MONT5TAB2
--- NOTE | 2020-07-25 10:15 | REP ---
INDICATION: RECURRENT ABDOMINAL PAIN. COMPARISON: 12/25/2008. TECHNIQUE/RADIOTRACER AND DOSE: FOLLOWING THE INTRAVENOUS ADMINISTRATION OF 6.6 MCI TECHNETIUM 99 M-MEBROFENIN, MULTIPLE IMAGES OF THE RIGHT UPPER QUADRANT ARE PERFORMED FOR 60 MINUTES. NEXT 8 OZ OF ENSURE ENLIVE IS INGESTED AND FURTHER IMAGING IS PERFORMED FOR 65 MINUTES. FINDINGS: THE GALLBLADDER IS VISUALIZED AT 20-25 MINUTES POST INJECTION. THERE IS BILIARY TO BOWEL TRANSIT AT 20MINUTES POST INJECTION. THERE IS NO SCINTIGRAPHIC EVIDENCE OF CHOLECYSTITIS. GALLBLADDER EJECTION FRACTION IS CALCULATED TO BE 93% WHICH IS NORMAL. IMPRESSION: NORMAL GALLBLADDER EJECTION FRACTION. <Electronically signed by Lm Patiño > 07/25/20 [id number]
== END ==
LOC: M RAD 07:30
PROVIDERS: ATTEND Family Medicine
DX: R10.9 Unspecified abdominal pain (principal); K85.90 Acute pancreatitis without necrosis or infection, unspecified
CPT/HCPCS: 78227; A9537

== ENCOUNTER → 2020-09-28 | Outpatient (CLI) | payer OTHER ==
--- NOTE | 2020-09-28 18:52 | REPPI ---
INDICATION: STRAIN RIGHT SHOULDER COMPARISON: None. TECHNIQUE: Internal rotation, external rotation, and Y view. FINDINGS: No acute fracture or dislocation. The acromioclavicular and glenohumeral joints are intact and essentially age-appropriate. No periarticular calcifications or significant overt degenerative changes are appreciated. Sub acromial space measures 7.5 mm on external rotation. Surrounding soft tissues are unremarkable. IMPRESSION: Essentially age-appropriate examination. Minimally decreased subacromial space should be correlated with physical examination. <Electronically signed by Alejandro Kaur > 09/28/20 [id number]
== END ==
LOC: M PLAIMG 14:12
PROVIDERS: ATTEND Physician Assistant
DX: S46.911A Strain of unspecified muscle, fascia and tendon at shoulder and upper arm level, right arm, initial encounter (principal); X58.XXXA Exposure to other specified factors, initial encounter; Y92.9 Unspecified place or not applicable

== ENCOUNTER 2020-10-24 15:56 | Outpatient (RCR) | payer OTHER ==
[~2020-10-24 15:56] MED LIST changes: +MONT10TA10; -MONT5TAB2
== END 2020-10-28 ==
LOC: M PT 15:56
PROVIDERS: ATTEND Physician Assistant
DX: S46.911A Strain of unspecified muscle, fascia and tendon at shoulder and upper arm level, right arm, initial encounter (principal)

== ENCOUNTER 2020-11-16 15:36 | Emergency (ER) | payer OTHER, SELFPAY ==
[~2020-11-16] VITALS: Ht 162.6 cm; Wt 72.7 kg
[~2020-11-16 15:36] MED LIST changes: -ACYC1TAB4 PO; +ACYC800T PO; -CLAR10CA3 PO; +SIME180C PO; -SIME180C25 PO; -VITA50005
[2020-11-16] MEDS ORDERED: VITA50005 (15:48)
[2020-11-16] MEDS ORDERED: CLAR10CA3 PO (15:48)
[2020-11-16] MEDS ORDERED: KETOROLAC 30 MG/ML 1ML VIAL IV ONE (16:55)
[2020-11-16] MEDS ORDERED: NS 1,000 ML IV ONE (16:55)
[2020-11-16] MEDS ORDERED: ACETAMINOPHEN 325 MG TAB PO ONE (16:55)
[2020-11-16 18:16] LABS: RSV AMPLIFICATION NEGATIVE (NEGATIVE)
[2020-11-16 19:52] VITALS: BP 126/73
== END 2020-11-16 19:54 | disposition home or self-care (01) ==
LOC: M ED 15:36
DX: B34.9 Viral infection, unspecified (principal); Z88.0 Allergy status to penicillin; Z88.8 Allergy status to other drugs, medicaments and biological substances; Z88.1 Allergy status to other antibiotic agents; Z88.2 Allergy status to sulfonamides; Z88.6 Allergy status to analgesic agent
CPT/HCPCS: 81001; 87086; 87631; 96361; 96374; 99284; J1885

== ENCOUNTER → 2020-11-16 | Outpatient (REF) | payer OTHER, SELFPAY ==
[~2020-11-16] MED LIST changes: +ACYC1TAB4 PO; -ACYC800T PO; +CLAR10CA3 PO; -SIME180C PO; +SIME180C25 PO; +VITA50005
[2020-11-16 15:21] LABS: BASO # 0.1 10^3/uL (0.0-0.2); BASO % 0.7 % (0.0-1.0); EOS # 0.1 10^3/uL (0.0-0.5); EOS % 1.7 % (0.0-3.0); HEMATOCRIT 34.8 % (36.0-47.0); HEMOGLOBIN 10.7 g/dl (12.0-15.5); LYMPH # 2.5 10^3/uL (1.5-5.0); LYMPH % 33.5 % (24.0-44.0); MEAN CORPUSCULAR HEMOGLOBIN 25.1 pg (27.0-33.0); MEAN CORPUSCULAR HGB CONC 30.7 g/dl (32.0-36.5); MEAN CORPUSCULAR VOLUME 81.7 fl (80.0-96.0); MONO # 0.6 10^3/uL (0.0-0.8); MONO % 8.1 % (2.0-8.0); NEUTROPHILS # 4.2 10^3/uL (1.5-8.5); NEUTROPHILS % 55.6 % (36.0-66.0); PLATELET COUNT, AUTOMATED 409 10^3/uL (150-450); RED BLOOD COUNT 4.26 10^6/uL (4.00-5.40); WHITE BLOOD COUNT 7.5 10^3/uL (4.0-10.0)
[2020-11-16 15:51] LABS: ALT/SGPT 21 U/L (12-78); BILIRUBIN,TOTAL 0.3 MG/DL (0.2-1.0); BLOOD UREA NITROGEN 17 MG/DL (7-18); CALCIUM LEVEL 8.8 MG/DL (8.5-10.1); CARBON DIOXIDE LEVEL 30 MEQ/L (21-32); CHLORIDE LEVEL 108 MEQ/L (98-107); CREATININE FOR GFR 0.76 MG/DL (0.55-1.30); GLOMERULAR FILTRATION RATE > 60.0 (>51); GLUCOSE, FASTING 89 MG/DL (70-100); LIPASE 128 U/L (73-393); POTASSIUM SERUM 4.2 MEQ/L (3.5-5.1); SODIUM LEVEL 139 MEQ/L (136-145); TOTAL PROTEIN 7.5 GM/DL (6.4-8.2)
== END ==
LOC: M SFHCPLAZ 13:06
PROVIDERS: ATTEND Family Medicine
DX: R10.11 Right upper quadrant pain (principal)

== ENCOUNTER → 2020-11-28 | Outpatient (RCR) | payer OTHER ==
[~2020-11-28] MED LIST changes: +CLAR10CA3 PO; +VITA50005
== END ==
LOC: M PT 10-29 08:03
PROVIDERS: ATTEND Physician Assistant
DX: S46.911A Strain of unspecified muscle, fascia and tendon at shoulder and upper arm level, right arm, initial encounter (principal)

== ENCOUNTER 2020-12-19 06:45 | Outpatient (RCR) | payer OTHER ==
[~2020-12-19 06:45] MED LIST changes: +ACYC1TAB4 PO; -ACYC800T PO; -SIME180C PO; +SIME180C25 PO
== END 2020-12-28 ==
LOC: M PT 06:45
PROVIDERS: ATTEND Physician Assistant
DX: S43.401D Unspecified sprain of right shoulder joint, subsequent encounter (principal); W18.30XD Fall on same level, unspecified, subsequent encounter; Y92.009 Unspecified place in unspecified non-institutional (private) residence as the place of occurrence of the external cause

== ENCOUNTER → 2021-01-04 | Outpatient (CLI) | payer OTHER ==
--- NOTE | 2021-01-04 17:21 | REP ---
INDICATION: STRAIN UNSP MUSC/FASC/TEND AT SHLDR/UP ARM, RIGHT. COMPARISON: Radiographs 09/28/2020. TECHNIQUE: Coronal oblique T1, T2 fat sat, sagittal oblique T2 fat sat, axial T2 fat sat, gradient echo. FINDINGS: Rotator cuff: There is a small full-thickness partial tear at the anterior leading edge of the supraspinatus tendon. Acromioclavicular joint: There are mild hypertrophic degenerative changes of the acromioclavicular joint. Acromion: Type 2 Biceps Tendon: In bicipital groove, no tenosynovitis. Hill Sach's deformity: None. Deltoid muscle: No abnormal signal. Biceps labral complex: I suspect fraying of the biceps labral complex. Labrum: No definite tear. Cartilage: No defects. Bone marrow: No abnormal signal. Joint fluid: No glenohumeral joint effusion. There is mild to moderate fluid in the subacromial/subdeltoid bursae. IMPRESSION: Small full-thickness partial tear anterior leading edge of the supraspinatus tendon. Mild hypertrophic degenerative changes acromioclavicular joint with a type 2 acromion. Labrum is not optimally evaluated but I suspect fraying of the biceps labral complex. If labral pathology is of concern, further evaluation may be made with MR arthrography. Mild to moderate fluid in the subacromial/subdeltoid bursae. <Electronically signed by Lm Patiño > 01/04/21 [id number]
== END ==
LOC: M PLARAD 15:35
PROVIDERS: ATTEND Physician Assistant
DX: S46.911D Strain of unspecified muscle, fascia and tendon at shoulder and upper arm level, right arm, subsequent encounter (principal); X58.XXXD Exposure to other specified factors, subsequent encounter; M19.011 Primary osteoarthritis, right shoulder

== ENCOUNTER → 2021-01-29 | Outpatient (REF) | payer OTHER ==
[2021-01-29 19:02] LABS: BASO % 0.6 % (0.0-1.0); EOS # 0.1 10^3/uL (0.0-0.5); HEMATOCRIT 41.2 % (36.0-47.0); HEMOGLOBIN 13.1 g/dl (12.0-15.5); LYMPH # 2.3 10^3/uL (1.5-5.0); LYMPH % 36.3 % (24.0-44.0); MEAN CORPUSCULAR HEMOGLOBIN 27.1 pg (27.0-33.0); MEAN CORPUSCULAR HGB CONC 31.8 g/dl (32.0-36.5); MEAN CORPUSCULAR VOLUME 85.1 fl (80.0-96.0); MONO # 0.5 10^3/uL (0.0-0.8); MONO % 8.4 % (2.0-8.0); NEUTROPHILS # 3.3 10^3/uL (1.5-8.5); NEUTROPHILS % 51.9 % (36.0-66.0); PLATELET COUNT, AUTOMATED 313 10^3/uL (150-450); RED BLOOD COUNT 4.84 10^6/uL (4.00-5.40); WHITE BLOOD COUNT 6.4 10^3/uL (4.0-10.0)
[2021-01-29 19:08] LABS: ALBUMIN 3.7 GM/DL (3.2-5.2); ALT/SGPT 19 U/L (12-78); BILIRUBIN,TOTAL 0.2 MG/DL (0.2-1.0); BLOOD UREA NITROGEN 19 MG/DL (7-18); CALCIUM LEVEL 9.1 MG/DL (8.5-10.1); CARBON DIOXIDE LEVEL 29 MEQ/L (21-32); CHLORIDE LEVEL 106 MEQ/L (98-107); CHOLESTEROL LEVEL 269 MG/DL (<200); CHOLESTEROL RISK RATIO 5.604 (<5); CREATININE FOR GFR 0.83 MG/DL (0.55-1.30); FERRITIN 12 NG/ML (8-252); GLOMERULAR FILTRATION RATE > 60.0 (>51); GLUCOSE, FASTING 89 MG/DL (70-100); HDL CHOLESTEROL 48 MG/DL (>40); IRON (FE) 34 UG/DL (50-170); LDL CHOLESTEROL 196 MG/DL (<100); LIPASE 120 U/L (73-393); NON-HDL-C 221 MG/DL; PERCENT SATURATION 9.6 % (13.2-45.0); POTASSIUM SERUM 3.9 MEQ/L (3.5-5.1); SODIUM LEVEL 141 MEQ/L (136-145); TOTAL IRON BINDING CAPACITY 355 UG/DL (250-450); TRIGLYCERIDES LEVEL 127 MG/DL (<150)
[2021-01-29 19:19] LABS: HEMOGLOBIN A1c 5.3 %
== END ==
LOC: M SFHCPLAZ 15:04
PROVIDERS: ATTEND Family Medicine
DX: F41.9 Anxiety disorder, unspecified (principal); R10.9 Unspecified abdominal pain

== ENCOUNTER → 2021-01-29 | Outpatient (CLI) | payer OTHER ==
--- NOTE | 2021-01-29 16:52 | REPMRS ---
Patient History The patient states she had a clinical breast exam in January 2021. Patient is postmenopausal. Family history of breast cancer under age 50 in mother, prostate cancer at age 50 or over in father. Benign stereotactic core biopsy of the right breast, April 30, 2020. Patient states no breast complaints. Patient has signed the MRS history sheet Digital Woman Screen Mammo: January 29, 2021 - Exam #: [id number] Bilateral CC and MLO view(s) were taken. Technologist: Jacquelin Quintero, Technologist Prior study comparison: February 20, 2020, right breast diagnostic unilateral mammo performed at [facility]. January 25, 2020, bilateral digital woman screen mammo performed at [facility]. FINDINGS: There are scattered fibroglandular densities. Screening. Digital screening (2D) mammography was performed bilaterally in the CC and MLO projections. Additionally, breast tomosynthesis (3D mammography) was performed bilaterally in the CC and MLO projections. Todays exam was compared to the prior exams. By history, the patient has no complaints of a palpable breast abnormality or other significant breast complaints. The breasts are unchanged in size and shape. There are no madelyn-soft tissue densities or spiculated masses. There is no internal architectural distortion. Once again, stable appearing calcifications are seen.There are no suspicious madelyn-calcific clusters. Skin thickening or nipple retraction is not present. IMPRESSION: BI-RADS Category 2- Benign Findings. There is no evidence of malignant alteration of the breasts. Followup examination recommended in one year. The Volpara volumetric breast density category is B, there are scattered areas of fibroglandular density. This mammogram was read with the assistance of [facility] [employer],an FDA approved computer aided detection system for mammography. The lifetime Tyrer-Cuzick score is 11.5 % Negative x-ray reports should not delay surgical consultation if a dominant or clinically suspicious mass is present. Not all breast cancers can be identified by mammography. Therefore, we recommend that you continue to perform regular breast self-examination and physical examination and then promptly contact your physician of any concerns or changes. Adenosis and dense breasts may obscure an underlying neoplasm. Assessment: BI-RADS/ACR category 2 mammogram. Benign Findings. Recommendation Routine screening mammogram of both breasts in 1 year. Electronically Signed By: El Oshea, 01/29/21 [id number]
== END ==
LOC: M WHC 15:49
PROVIDERS: ATTEND Family Medicine
DX: Z12.31 Encounter for screening mammogram for malignant neoplasm of breast (principal)

== ENCOUNTER → 2021-04-10 | Outpatient (CLI) | payer OTHER ==
[~2021-04-10] MED LIST changes: +ERGO500029; +GASTROGRAFIN SOLUTION 30ML (Q9963) As Ordered ONE; +ISOVUE-370 76% 100ML VIAL As Ordered ONE; +OMEP40CA4; -OMEP40CA97; -VITA50005
[2021-04-10 14:42] LABS: BASO % 0.5 % (0.0-1.0); EOS # 0.1 10^3/uL (0.0-0.5); EOS % 1.9 % (0.0-3.0); HEMATOCRIT 40.3 % (36.0-47.0); HEMOGLOBIN 13.3 g/dl (12.0-15.5); LYMPH # 2.6 10^3/uL (1.5-5.0); LYMPH % 34.1 % (24.0-44.0); MEAN CORPUSCULAR VOLUME 84.8 fl (80.0-96.0); MONO # 0.7 10^3/uL (0.0-0.8); MONO % 9.3 % (2.0-8.0); NEUTROPHILS # 4.1 10^3/uL (1.5-8.5); NEUTROPHILS % 53.8 % (36.0-66.0); PLATELET COUNT, AUTOMATED 300 10^3/uL (150-450); RED BLOOD COUNT 4.75 10^6/uL (4.00-5.40); WHITE BLOOD COUNT 7.5 10^3/uL (4.0-10.0)
[2021-04-10 15:04] LABS: ALBUMIN 4.1 GM/DL (3.2-5.2); ALT/SGPT 29 U/L (12-78); AMYLASE 35 U/L (25-115); BILIRUBIN,TOTAL 0.5 MG/DL (0.2-1.0); BLOOD UREA NITROGEN 23 MG/DL (7-18); CALCIUM LEVEL 9.8 MG/DL (8.5-10.1); CARBON DIOXIDE LEVEL 29 MEQ/L (21-32); CHLORIDE LEVEL 107 MEQ/L (98-107); CREATININE FOR GFR 0.81 MG/DL (0.55-1.30); GLOMERULAR FILTRATION RATE > 60.0 (>51); GLUCOSE, FASTING 86 MG/DL (70-100); LIPASE 126 U/L (73-393); POTASSIUM SERUM 4.1 MEQ/L (3.5-5.1); SODIUM LEVEL 141 MEQ/L (136-145); TOTAL PROTEIN 7.5 GM/DL (6.4-8.2)
--- NOTE | 2021-04-10 15:39 | REP ---
INDICATION: NAUSEA, RUQ PAIN/ LABS 1ST, CT 2ND. COMPARISON: 04/22/2020 TECHNIQUE: Scans were obtained during contrast administration. FINDINGS: The lower lungs are clear. The liver shows normal size and attenuation. There is no evidence of mass or biliary tract dilatation. The gallbladder is fluid filled without evidence of gallstone. The pancreas shows normal size and attenuation. There is no evidence of mass, edema or surrounding inflammatory change. The spleen shows normal size and attenuation. The aorta shows normal caliber. The adrenal glands are not enlarged. There are no adrenal nodules. The kidneys show normal size composition is creation of contrast. There is no hydronephrosis mass or cyst. No inflammatory change, fluid collection or abnormality of the large or small bowel is demonstrated. IMPRESSION: Negative CT of the abdomen. <Electronically signed by Sarthak Galdamez > 04/10/21 [id number]
== END ==
LOC: M RAD 14:08
PROVIDERS: ATTEND Physician Assistant Medical
DX: R10.11 Right upper quadrant pain (principal); R11.0 Nausea
CPT/HCPCS: 36415; 74170; 80053; 82150; 83690; 85025; Q9963; Q9967

== ENCOUNTER → 2021-05-16 | Outpatient (CLI) | payer OTHER ==
[~2021-05-16] MED LIST changes: -GASTROGRAFIN SOLUTION 30ML (Q9963) As Ordered ONE; -ISOVUE-370 76% 100ML VIAL As Ordered ONE
[2021-05-16 09:21] LABS: BASO % 0.7 % (0.0-1.0); EOS # 0.2 10^3/uL (0.0-0.5); HEMOGLOBIN 13.6 g/dl (12.0-15.5); LYMPH % 33.6 % (24.0-44.0); MEAN CORPUSCULAR HEMOGLOBIN 28.2 pg (27.0-33.0); MEAN CORPUSCULAR HGB CONC 32.4 g/dl (32.0-36.5); MEAN CORPUSCULAR VOLUME 87.1 fl (80.0-96.0); MONO # 0.6 10^3/uL (0.0-0.8); MONO % 10.2 % (2.0-8.0); NEUTROPHILS # 3.1 10^3/uL (1.5-8.5); PLATELET COUNT, AUTOMATED 274 10^3/uL (150-450); RED BLOOD COUNT 4.82 10^6/uL (4.00-5.40)
[2021-05-16 09:40] LABS: HEMOGLOBIN A1c 5.4 %
[2021-05-16 09:45] LABS: ALBUMIN 3.5 GM/DL (3.2-5.2); ALT/SGPT 26 U/L (12-78); BILIRUBIN,TOTAL 0.3 MG/DL (0.2-1.0); BLOOD UREA NITROGEN 17 MG/DL (7-18); CALCIUM LEVEL 9.3 MG/DL (8.5-10.1); CARBON DIOXIDE LEVEL 28 MEQ/L (21-32); CHLORIDE LEVEL 108 MEQ/L (98-107); CHOLESTEROL LEVEL 188 MG/DL (<200); CHOLESTEROL RISK RATIO 2.805 (<5); CPK CREATINE PHOSPHOKINASE 79 U/L (26-192); CREATININE FOR GFR 0.66 MG/DL (0.55-1.30); FERRITIN 33 NG/ML (8-252); FREE T4 1.03 NG/DL (0.76-1.46); GLOMERULAR FILTRATION RATE > 60.0 (>51); GLUCOSE, FASTING 82 MG/DL (70-100); HDL CHOLESTEROL 67 MG/DL (>40); LDL CHOLESTEROL 109 MG/DL (<100); NON-HDL-C 121 MG/DL; POTASSIUM SERUM 4.5 MEQ/L (3.5-5.1); SODIUM LEVEL 140 MEQ/L (136-145); THYROID STIMULATING HORMONE 0.956 uIU/ML (0.358-3.740); TOTAL PROTEIN 7.1 GM/DL (6.4-8.2); TRIGLYCERIDES LEVEL 60 MG/DL (<150)
== END ==
LOC: M LAB 07:58
PROVIDERS: ATTEND Family Medicine
DX: E78.2 Mixed hyperlipidemia (principal)

== ENCOUNTER → 2021-05-17 | Outpatient (REF) | payer OTHER ==
[~2021-05-17] MED LIST changes: -ERGO500029; +ERGO500029 PO; -MONT10TA10; +MONT10TA97; +OMEP40CA5 PO; +ROSU20TA5 PO
[2021-05-17 10:39] LABS: CREATININE, URINE 71.4 MG/DL; MALB URINE SIEMENS 6.3 MG/L; MAU/CREAT RATIO 8.8 MCG/MG (0.0-30.0)
== END ==
LOC: M LAB REF 09:11
PROVIDERS: ATTEND Family Medicine
DX: R73.01 Impaired fasting glucose (principal)

== ENCOUNTER → 2021-06-22 | Outpatient (CLI) | payer OTHER ==
[~2021-06-22] MED LIST changes: +ERGO500029; -ERGO500029 PO; +MONT10TA10; -MONT10TA97; -OMEP40CA5 PO; -ROSU20TA5 PO
== END ==
LOC: M LABSMTC 09:53
PROVIDERS: ATTEND Physician Assistant Medical
DX: Z01.812 Encounter for preprocedural laboratory examination (principal); Z20.822 Contact with and (suspected) exposure to COVID-19

== ENCOUNTER → 2021-09-03 | Outpatient (CLI) | payer MEDICAID, OTHER ==
[2021-09-03 13:05] LABS: BASO # 0.1 10^3/uL (0.0-0.2); BASO % 0.8 % (0.0-1.0); EOS # 0.1 10^3/uL (0.0-0.5); EOS % 2.1 % (0.0-3.0); HEMATOCRIT 41.9 % (36.0-47.0); HEMOGLOBIN 13.3 g/dl (12.0-15.5); LYMPH # 2.4 10^3/uL (1.5-5.0); LYMPH % 38.6 % (24.0-44.0); MEAN CORPUSCULAR HEMOGLOBIN 27.7 pg (27.0-33.0); MEAN CORPUSCULAR HGB CONC 31.7 g/dl (32.0-36.5); MEAN CORPUSCULAR VOLUME 87.3 fl (80.0-96.0); MONO # 0.7 10^3/uL (0.0-0.8); MONO % 10.9 % (2.0-8.0); NEUTROPHILS # 2.9 10^3/uL (1.5-8.5); NEUTROPHILS % 47.1 % (36.0-66.0); PLATELET COUNT, AUTOMATED 380 10^3/uL (150-450); WHITE BLOOD COUNT 6.2 10^3/uL (4.0-10.0)
[2021-09-03 13:44] LABS: ALBUMIN 3.9 GM/DL (3.2-5.2); BLOOD UREA NITROGEN 18 MG/DL (7-18); CALCIUM LEVEL 9.2 MG/DL (8.5-10.1); CARBON DIOXIDE LEVEL 29 MEQ/L (21-32); CHLORIDE LEVEL 106 MEQ/L (98-107); CREATININE FOR GFR 0.76 MG/DL (0.55-1.30); FERRITIN 8 NG/ML (8-252); GLOMERULAR FILTRATION RATE > 60.0 (>51); GLUCOSE, FASTING 98 MG/DL (70-100); PHOSPHORUS LEVEL 3.1 MG/DL (2.5-4.9); POTASSIUM SERUM 4.7 MEQ/L (3.5-5.1); SODIUM LEVEL 139 MEQ/L (136-145)
[2021-09-03 13:49] LABS: TOTAL 25(OH) VITAMIN D 31.6 NG/ML (30.0-100.0); VITAMIN B12 LEVEL 566 PG/ML (247-911)
== END ==
LOC: M PLALAB 10:28
PROVIDERS: ATTEND Family Medicine
DX: E55.9 Vitamin D deficiency, unspecified (principal)

== ENCOUNTER 2021-09-24 20:15 | Emergency (ER) | payer OTHER ==
[~2021-09-24] VITALS: Ht 162.6 cm; Wt 75.0 kg
[~2021-09-24 20:15] MED LIST changes: -MONT10TA10; +MONT10TA97
[2021-09-24 20:16] VITALS: BP 128/62
== END 2021-09-25 00:24 | disposition left against medical advice (07) ==
LOC: M ED 20:15
DX: Z53.21 Procedure and treatment not carried out due to patient leaving prior to being seen by health care provider (principal)

== ENCOUNTER → 2021-09-25 | Outpatient (CLI) | payer OTHER ==
[2021-09-25 13:26] LABS: BASO # 0.1 10^3/uL (0.0-0.2); BASO % 0.6 % (0.0-1.0); EOS # 0.1 10^3/uL (0.0-0.5); EOS % 1.8 % (0.0-3.0); HEMATOCRIT 41.9 % (36.0-47.0); HEMOGLOBIN 13.3 g/dl (12.0-15.5); LYMPH # 2.3 10^3/uL (1.5-5.0); LYMPH % 29.8 % (24.0-44.0); MEAN CORPUSCULAR HEMOGLOBIN 27.5 pg (27.0-33.0); MEAN CORPUSCULAR HGB CONC 31.7 g/dl (32.0-36.5); MEAN CORPUSCULAR VOLUME 86.6 fl (80.0-96.0); MONO # 0.7 10^3/uL (0.0-0.8); MONO % 9.1 % (2.0-8.0); NEUTROPHILS # 4.6 10^3/uL (1.5-8.5); NEUTROPHILS % 58.3 % (36.0-66.0); PLATELET COUNT, AUTOMATED 336 10^3/uL (150-450); RED BLOOD COUNT 4.84 10^6/uL (4.00-5.40); WHITE BLOOD COUNT 7.8 10^3/uL (4.0-10.0)
[2021-09-25 13:46] LABS: ALBUMIN 3.9 GM/DL (3.2-5.2); ALT/SGPT 27 U/L (12-78); BILIRUBIN,TOTAL 0.4 MG/DL (0.2-1.0); BLOOD UREA NITROGEN 22 MG/DL (7-18); CALCIUM LEVEL 8.7 MG/DL (8.5-10.1); CARBON DIOXIDE LEVEL 30 MEQ/L (21-32); CHLORIDE LEVEL 106 MEQ/L (98-107); CREATININE FOR GFR 0.68 MG/DL (0.55-1.30); GLOMERULAR FILTRATION RATE > 60.0 (>51); GLUCOSE, FASTING 86 MG/DL (70-100); POTASSIUM SERUM 4.2 MEQ/L (3.5-5.1); SODIUM LEVEL 138 MEQ/L (136-145); TOTAL PROTEIN 7.4 GM/DL (6.4-8.2)
[2021-09-25 13:50] LABS: CK-MB VALUE MASS 1.5 NG/ML (<3.6); MB/CK RELATIVE INDEX 1.61 (< OR =4)
== END ==
LOC: M PLAIMG 12:11
PROVIDERS: ATTEND Nurse Practitioner Family
DX: R07.9 Chest pain, unspecified (principal)

== ENCOUNTER 2021-10-01 11:49 | Observation (INO) | payer OTHER ==
[~2021-10-01] VITALS: Ht 162.6 cm; Wt 76.1 kg
[~2021-10-01 11:49] MED LIST changes: -ERGO500029; +ERGO500029 PO
[2021-10-01] MEDS ORDERED: OMEP40CA5 PO (11:57)
[2021-10-01] MEDS ORDERED: ATIV1TAB10 PO (11:57)
[2021-10-01] MEDS ORDERED: ROSU20TA5 PO (11:57)
[2021-10-01] MEDS ORDERED: HYDROMORPHONE HCL 0.5 MG/ 0.5 ML SYRINGE (J1170 PER 1) IV ONE (12:25)
[2021-10-01] MEDS ORDERED: ONDANSETRON 4MG/2ML VIAL IV ONE (12:25)
[2021-10-01 13:35] LABS: BASO # 0.1 10^3/uL (0.0-0.2); BASO % 0.7 % (0.0-1.0); EOS # 0.1 10^3/uL (0.0-0.5); EOS % 0.9 % (0.0-3.0); HEMATOCRIT 40.6 % (36.0-47.0); HEMOGLOBIN 13.2 g/dl (12.0-15.5); LYMPH # 1.4 10^3/uL (1.5-5.0); LYMPH % 20.1 % (24.0-44.0); MEAN CORPUSCULAR HEMOGLOBIN 27.6 pg (27.0-33.0); MEAN CORPUSCULAR HGB CONC 32.5 g/dl (32.0-36.5); MEAN CORPUSCULAR VOLUME 84.8 fl (80.0-96.0); MONO # 0.9 10^3/uL (0.0-0.8); MONO % 12.1 % (2.0-8.0); NEUTROPHILS # 4.7 10^3/uL (1.5-8.5); NEUTROPHILS % 65.9 % (36.0-66.0); PLATELET COUNT, AUTOMATED 287 10^3/uL (150-450); RED BLOOD COUNT 4.79 10^6/uL (4.00-5.40); WHITE BLOOD COUNT 7.1 10^3/uL (4.0-10.0)
[2021-10-01 13:51] LABS: ALBUMIN 3.8 GM/DL (3.2-5.2); ALT/SGPT 22 U/L (12-78); BILIRUBIN,DIRECT 0.1 MG/DL (0.0-0.2); BILIRUBIN,TOTAL 0.2 MG/DL (0.2-1.0); BLOOD UREA NITROGEN 20 MG/DL (7-18); CALCIUM LEVEL 8.9 MG/DL (8.5-10.1); CARBON DIOXIDE LEVEL 26 MEQ/L (21-32); CHLORIDE LEVEL 106 MEQ/L (98-107); CREATININE FOR GFR 0.73 MG/DL (0.55-1.30); GLOMERULAR FILTRATION RATE > 60.0 (>51); GLUCOSE, FASTING 90 MG/DL (70-100); LIPASE 99 U/L (73-393); POTASSIUM SERUM 4.2 MEQ/L (3.5-5.1); SODIUM LEVEL 137 MEQ/L (136-145); TOTAL PROTEIN 7.3 GM/DL (6.4-8.2)
[2021-10-01 13:52] LABS: CK-MB VALUE MASS < 1.0 NG/ML (<3.6); CPK CREATINE PHOSPHOKINASE 65 U/L (26-192); MB/CK RELATIVE INDEX 1.54 (< OR =4)
[2021-10-01] MEDS ORDERED: KETAMINE HCL IV ONE (14:00)
[2021-10-01] MEDS ORDERED: NS IV ONE (14:00)
[2021-10-01] MEDS ORDERED: ISOVUE-370 76% 100ML VIAL As Ordered ONE (14:32)
[2021-10-01] MEDS ORDERED: PROMETHAZINE INJ 25 MG/ML VIAL (J2550) IV ONE (14:55)
[2021-10-01] MEDS ORDERED: KETOROLAC 30 MG/ML 1ML VIAL IV ONE (14:55)
[2021-10-01] MEDS ORDERED: HOME MED LIST COMPLETE! XX SCH (16:25)
[2021-10-01] MEDS ORDERED: LORazepam 0.5 MG TAB PO PRN (17:10)
[2021-10-01] MEDS ORDERED: ACETAMINOPHEN TAB 650MG DOSE (2X325MG) PO PRN (17:10)
[2021-10-01 18:14] LABS: RSV AMPLIFICATION NEGATIVE (NEGATIVE)
[2021-10-01] MEDS: LR 1,000 ML IV SCH (18:27)
[2021-10-01] MEDS: KETOROLAC 30 MG/ML 1ML VIAL IV PRN (18:44)
[2021-10-01 20:00] VITALS: BP 124/70
[2021-10-01] MEDS: ROSUVASTATIN 10 MG TAB (CRESTOR) PO SCH (21:30)
[2021-10-01] MEDS: ONDANSETRON 4MG/2ML VIAL IV PRN (21:30)
[2021-10-02] MEDS: LR 1,000 ML IV SCH (00:27)
[2021-10-02] MEDS: KETOROLAC 30 MG/ML 1ML VIAL IV PRN (04:05)
[2021-10-02] MEDS: ONDANSETRON 4MG/2ML VIAL IV PRN ×3 (04:05→20:23)
[2021-10-02 06:00] VITALS: BP 122/68
[2021-10-02 06:12] LABS: HEMATOCRIT 37.3 % (36.0-47.0); MEAN CORPUSCULAR HEMOGLOBIN 27.3 pg (27.0-33.0); MEAN CORPUSCULAR HGB CONC 32.2 g/dl (32.0-36.5); PLATELET COUNT, AUTOMATED 245 10^3/uL (150-450); RED BLOOD COUNT 4.39 10^6/uL (4.00-5.40); WHITE BLOOD COUNT 6.7 10^3/uL (4.0-10.0)
[2021-10-02 06:32] LABS: ALBUMIN 3.3 GM/DL (3.2-5.2); ALT/SGPT 20 U/L (12-78); BILIRUBIN,TOTAL 0.3 MG/DL (0.2-1.0); BLOOD UREA NITROGEN 20 MG/DL (7-18); CALCIUM LEVEL 8.5 MG/DL (8.5-10.1); CARBON DIOXIDE LEVEL 26 MEQ/L (21-32); CHLORIDE LEVEL 106 MEQ/L (98-107); GLOMERULAR FILTRATION RATE > 60.0 (>51); GLUCOSE, FASTING 93 MG/DL (70-100); MAGNESIUM LEVEL 2.4 MG/DL (1.8-2.4); POTASSIUM SERUM 3.9 MEQ/L (3.5-5.1); SODIUM LEVEL 137 MEQ/L (136-145); TOTAL PROTEIN 7.1 GM/DL (6.4-8.2)
[2021-10-02] MEDS ORDERED: SODIUM CHLORIDE NASAL 0.65% SPRAY BTL (OCEAN) PRN (09:25)
[2021-10-02] MEDS ORDERED: PERCOCET 5MG/325MG TAB PO ONE (09:45)
[2021-10-02] MEDS: FLUTICASONE PROP 0.05% NASAL SPRAY 16 GM (FLONASE) NARES SCH (10:26)
[2021-10-02] MEDS ORDERED: diphenhydrAMINE 50MG/ML VIAL (J1200) IV PRN (13:30)
[2021-10-02 14:00] VITALS: BP 119/66
[2021-10-02] MEDS: ROSUVASTATIN 10 MG TAB (CRESTOR) PO SCH (20:08)
[2021-10-02 20:09] VITALS: BP 110/65
[2021-10-03 04:00] VITALS: BP 108/67
[2021-10-03] MEDS: FLUTICASONE PROP 0.05% NASAL SPRAY 16 GM (FLONASE) NARES SCH (09:00)
[2021-10-03] MEDS: ONDANSETRON 4MG/2ML VIAL IV PRN (09:51)
[2021-10-03] MEDS ORDERED: ONDA4TAB6 PO (12:56)
[2021-10-03] MEDS ORDERED: ONDANSETRON 4 MG ORAL DISINTEGRATING TAB PO PRN (13:15)
[2021-10-03] MEDS ORDERED: MIRALAX *UNIT DOSE* 17GM PACKET PO SCH (13:30)
[2021-10-03] MEDS ORDERED: ENOXAPARIN 40MG/0.4ML SYRINGE (J1650 PER 10MG) SC SCH (13:30)
[2021-10-03 14:00] VITALS: BP 124/68
== END 2021-10-03 16:45 | disposition home health service (06) ==
LOC: M ED 11:49 → M ED INP 11:50 → M MS5PR 19:50
PROVIDERS: ADMIT Family Medicine; ATTEND Family Medicine
DX: R10.9 Unspecified abdominal pain (principal); J30.9 Allergic rhinitis, unspecified; F31.9 Bipolar disorder, unspecified; F41.0 Panic disorder [episodic paroxysmal anxiety]; R11.0 Nausea; Z87.19 Personal history of other diseases of the digestive system; N80.9 Endometriosis, unspecified; E78.5 Hyperlipidemia, unspecified; G43.909 Migraine, unspecified, not intractable, without status migrainosus; K25.9 Gastric ulcer, unspecified as acute or chronic, without hemorrhage or perforation; K52.9 Noninfective gastroenteritis and colitis, unspecified; K21.9 Gastro-esophageal reflux disease without esophagitis; Z79.899 Other long term (current) drug therapy; Z88.0 Allergy status to penicillin; Z88.1 Allergy status to other antibiotic agents; Z88.2 Allergy status to sulfonamides; Z88.8 Allergy status to other drugs, medicaments and biological substances; Z88.5 Allergy status to narcotic agent; Z88.4 Allergy status to anesthetic agent; Z88.7 Allergy status to serum and vaccine
CPT/HCPCS: 36415; 71046; 74177; 76705; 78227; 80048; 80053; 80076; 82550; 82553; 83690; 83735; 85025; 85027; 87631; 93005; 96361; 96374; 96375; 96376; 99284; A9537; J1885; J2405; Q9967

== ENCOUNTER → 2021-11-14 | Outpatient (CLI) | payer OTHER ==
[~2021-11-14] MED LIST changes: +OMEP40CA5 PO; +ROSU20TA5 PO
== END ==
LOC: M LABSMTC 09:16
PROVIDERS: ATTEND Anesthesiology
DX: Z01.818 Encounter for other preprocedural examination (principal); Z11.52 Encounter for screening for COVID-19

== ENCOUNTER 2021-11-19 07:34 | Day surgery (SDC) | payer OTHER ==
[~2021-11-19] VITALS: Ht 162.6 cm; Wt 77.2 kg
[~2021-11-19 07:34] MED LIST changes: +LR 1,000 ML IV ONE; +ceFAZolin SOD 2 GM in IV 1 EA IV ONE
[2021-11-19] MEDS ORDERED: MIDAZOLAM INJ 2MG/2ML VIAL (J2250 PER 1MG) As Ordered ONE (08:23)
[2021-11-19] MEDS ORDERED: ROCURONIUM BROMIDE 50 MG/5 ML VIAL As Ordered ONE (08:24)
[2021-11-19] MEDS ORDERED: LIDOCAINE 2% 100MG/5ML SDV (FOR ANES.) As Ordered ONE (08:24)
[2021-11-19] MEDS ORDERED: propofoL 200 MG/20 ML VIAL As Ordered ONE (08:24)
[2021-11-19] MEDS ORDERED: fentaNYL 100 MCG/2 ML INJECTION As Ordered ONE (08:24)
[2021-11-19] MEDS ORDERED: ACETAMINOPHEN 1000MG 100ML IV BTL (OFIRMEV) (J0131 PER 10MG) As Ordered ONE (08:24)
[2021-11-19] MEDS ORDERED: ONDANSETRON 4MG/2ML VIAL As Ordered ONE (08:24)
[2021-11-19] MEDS ORDERED: SUGAMMADEX SODIUM 500 MG/5 ML VIAL (BRIDION) As Ordered ONE (08:24)
[2021-11-19] MEDS ORDERED: KETOROLAC 60MG 2ML VIAL As Ordered ONE (08:24)
[2021-11-19] MEDS ORDERED: dexameTHASONE 4 MG/ML 1ML VIAL (J1100 PER 1MG) As Ordered ONE (08:24)
[2021-11-19] MEDS ORDERED: SCOPOLAMINE 1MG TRANSDERMAL PATCH TOP ONE (08:40)
[2021-11-19] MEDS ORDERED: LIDOCAINE W/EPINEPHRINE 1% 20ML VIAL As Ordered ONE (09:25)
[2021-11-19] MEDS ORDERED: BUPIVACAINE HCL 0.5% 10ML VIAL As Ordered ONE (09:25)
[2021-11-19] MEDS ORDERED: LR 1,000 ML IV SCH (10:45)
[2021-11-19] MEDS ORDERED: ONDANSETRON 4MG/2ML VIAL IV PRN (10:45)
[2021-11-19] MEDS ORDERED: oxyCODONE 5MG TAB PO PRN (10:45)
[2021-11-19] MEDS ORDERED: fentaNYL 100 MCG/2 ML INJECTION IV PRN (10:45)
[2021-11-19] MEDS ORDERED: NS 1,000 ML IV SCH (10:50)
[2021-11-19 12:45] VITALS: BP 125/62
== END 2021-11-19 12:54 | disposition home or self-care (01) ==
LOC: M SDC 07:34
PROVIDERS: ATTEND Surgery
DX: K81.1 Chronic cholecystitis (principal); K21.9 Gastro-esophageal reflux disease without esophagitis; K44.9 Diaphragmatic hernia without obstruction or gangrene; M85.80 Other specified disorders of bone density and structure, unspecified site; F32.9 Major depressive disorder, single episode, unspecified; E78.00 Pure hypercholesterolemia, unspecified; K25.9 Gastric ulcer, unspecified as acute or chronic, without hemorrhage or perforation; F41.9 Anxiety disorder, unspecified; J45.909 Unspecified asthma, uncomplicated; Z87.891 Personal history of nicotine dependence; Z88.5 Allergy status to narcotic agent; Z88.4 Allergy status to anesthetic agent; Z88.1 Allergy status to other antibiotic agents; Z88.0 Allergy status to penicillin; Z88.7 Allergy status to serum and vaccine; Z88.8 Allergy status to other drugs, medicaments and biological substances; Z88.2 Allergy status to sulfonamides; Z79.899 Other long term (current) drug therapy
CPT/HCPCS: 47562; 88304; J0131; J0690; J1885; J2250; J2405; J3010

== ENCOUNTER → 2022-01-10 | Outpatient (CLI) | payer OTHER ==
[~2022-01-10] MED LIST changes: -LR 1,000 ML IV ONE; -ceFAZolin SOD 2 GM in IV 1 EA IV ONE
[2022-01-10 15:25] LABS: BASO % 0.5 % (0.0-1.0); EOS # 0.2 10^3/uL (0.0-0.5); HEMATOCRIT 40.3 % (36.0-47.0); LYMPH # 2.3 10^3/uL (1.5-5.0); LYMPH % 27.2 % (24.0-44.0); MEAN CORPUSCULAR HEMOGLOBIN 27.4 pg (27.0-33.0); MEAN CORPUSCULAR HGB CONC 32.3 g/dl (32.0-36.5); MEAN CORPUSCULAR VOLUME 84.8 fl (80.0-96.0); MONO # 0.7 10^3/uL (0.0-0.8); MONO % 7.9 % (2.0-8.0); NEUTROPHILS # 5.2 10^3/uL (1.5-8.5); NEUTROPHILS % 61.9 % (36.0-66.0); PLATELET COUNT, AUTOMATED 312 10^3/uL (150-450); RED BLOOD COUNT 4.75 10^6/uL (4.00-5.40); WHITE BLOOD COUNT 8.4 10^3/uL (4.0-10.0)
[2022-01-10 15:40] LABS: HEMOGLOBIN A1c 5.5 %
[2022-01-10 15:58] LABS: ALBUMIN 4.1 GM/DL (3.2-5.2); ALT/SGPT 24 U/L (12-78); BILIRUBIN,TOTAL 0.5 MG/DL (0.2-1.0); BLOOD UREA NITROGEN 17 MG/DL (7-18); CALCIUM LEVEL 9.2 MG/DL (8.5-10.1); CARBON DIOXIDE LEVEL 30 MEQ/L (21-32); CHLORIDE LEVEL 107 MEQ/L (98-107); CHOLESTEROL LEVEL 180 MG/DL (<200); CREATININE FOR GFR 0.72 MG/DL (0.55-1.30); FERRITIN 9 NG/ML (8-252); GLOMERULAR FILTRATION RATE > 60.0 (>51); GLUCOSE, FASTING 88 MG/DL (70-100); HDL CHOLESTEROL 60 MG/DL (>40); LDL CHOLESTEROL 102 MG/DL (<100); NON-HDL-C 120 MG/DL; POTASSIUM SERUM 4.2 MEQ/L (3.5-5.1); SODIUM LEVEL 139 MEQ/L (136-145); TOTAL PROTEIN 7.5 GM/DL (6.4-8.2); TRIGLYCERIDES LEVEL 92 MG/DL (<150); VITAMIN B12 LEVEL 466 PG/ML (247-911)
[2022-01-13 18:10] LABS: SOLUBLE TRANSFERRIN RECEPTOR 23.9 nmol/L (12.2-27.3)
== END ==
LOC: M PLALAB 13:22
PROVIDERS: ATTEND Family Medicine
DX: R73.01 Impaired fasting glucose (principal); D50.9 Iron deficiency anemia, unspecified

== ENCOUNTER → 2022-01-31 | Outpatient (CLI) | payer OTHER ==
[~2022-01-31] MED LIST changes: +FAMO1TAB PO; -[UNRECOGNIZED DRUG - CODE] PO
== END ==
LOC: M WHC 01-15 08:55
PROVIDERS: ATTEND Family Medicine
DX: Z12.39 Encounter for other screening for malignant neoplasm of breast (principal); Z80.3 Family history of malignant neoplasm of breast

== ENCOUNTER → 2022-04-04 | Outpatient (CLI) | payer OTHER | LOC: M RAD 11:30 | PROVIDERS: ATTEND Family Medicine | DX: R10.9 Unspecified abdominal pain (principal) | CPT/HCPCS: 78264; A9541 ==

== ENCOUNTER → 2022-05-06 | Outpatient (CLI) | payer OTHER | LOC: M PLAIMG 15:23 | PROVIDERS: ATTEND Family Medicine | DX: R10.9 Unspecified abdominal pain (principal) ==

== ENCOUNTER → 2022-07-16 | Outpatient (CLI) | payer OTHER ==
[2022-07-16 14:06] LABS: BASO % 0.4 % (0.0-1.0); EOS # 0.1 10^3/uL (0.0-0.5); EOS % 1.9 % (0.0-3.0); HEMATOCRIT 37.5 % (36.0-47.0); HEMOGLOBIN 11.3 g/dl (12.0-15.5); LYMPH # 2.3 10^3/uL (1.5-5.0); LYMPH % 33.7 % (24.0-44.0); MEAN CORPUSCULAR HEMOGLOBIN 25.1 pg (27.0-33.0); MEAN CORPUSCULAR HGB CONC 30.1 g/dl (32.0-36.5); MEAN CORPUSCULAR VOLUME 83.3 fl (80.0-96.0); MONO # 0.7 10^3/uL (0.0-0.8); MONO % 9.6 % (2.0-8.0); NEUTROPHILS # 3.7 10^3/uL (1.5-8.5); PLATELET COUNT, AUTOMATED 424 10^3/uL (150-450); WHITE BLOOD COUNT 6.8 10^3/uL (4.0-10.0)
[2022-07-16 15:37] LABS: ALBUMIN 4.1 G/DL (3.2-5.2); ALT/SGPT 17 U/L (7.0-40); BILIRUBIN,TOTAL 0.2 MG/DL (0.3-1.2); BLOOD UREA NITROGEN 19 MG/DL (9-23); CALCIUM LEVEL 9.2 MG/DL (8.5-10.1); CARBON DIOXIDE LEVEL 25 MMOL/L (20-31); CHLORIDE LEVEL 106 MMOL/L (98-107); CREATININE FOR GFR 0.72 MG/DL (0.55-1.30); FERRITIN 3.4 NG/ML (7.3-270.7); FREE T4 1.14 NG/DL (0.89-1.76); GLOMERULAR FILTRATION RATE > 60.0 (>51); GLUCOSE, FASTING 79 MG/DL (60-100); IRON (FE) 27 UG/DL (50-170); PERCENT SATURATION 6.5 % (13.2-45.0); POTASSIUM SERUM 4.7 MMOL/L (3.5-5.1); SODIUM LEVEL 140 MMOL/L (136-145); THYROID STIMULATING HORMONE 0.929 uIU/ML (0.55-4.78); TOTAL IRON BINDING CAPACITY 414 UG/DL (250-425); TOTAL PROTEIN 7.4 G/DL (5.7-8.2)
[2022-07-16 17:24] LABS: HEMOGLOBIN A1c 5.2 % (4.0-6.0)
[2022-07-17 15:08] LABS: ANTI CENTROMERE ANTIBODY <0.2 AI (0.0-0.9); APOLIPOPROTEIN A-1 155 mg/dL (116-209); APOLIPOPROTEIN B 83 mg/dL (<90); APOLIPOPROTEIN B/A-1 RATIO 0.5 ratio (0.0-0.6)
== END ==
LOC: M PLALAB 11:56
PROVIDERS: ATTEND Family Medicine
DX: R73.01 Impaired fasting glucose (principal); E78.5 Hyperlipidemia, unspecified; D50.9 Iron deficiency anemia, unspecified; R10.9 Unspecified abdominal pain

== ENCOUNTER 2022-08-01 08:30 | Outpatient (CLI) | payer OTHER ==
[~2022-08-01] VITALS: Ht 162.6 cm; Wt 77.1 kg
[~2022-08-01 08:30] MED LIST changes: +ALBUTEROL SULFATE 2.5 MG/0.5 ML INH NEB SOLN INH PRN; +EPINEPHrine INJ 1 MG/ML 1ML AMP IM PRN; +diphenhydrAMINE 50MG/ML VIAL IV PRN; +methylPREDNISolone 125MG 2ML VIAL IV PRN
[2022-08-01 08:40] VITALS: BP 148/80
[2022-08-01] MEDS ORDERED: NS 1,000 ML IV SCH (09:00)
[2022-08-01] MEDS ORDERED: IRON SUCROSE 500 MG in NS 250 ML OVER 4 HRS IV ONE (09:00)
[2022-08-05] MEDS ORDERED: MIRA3350 PO (15:01)
== END 2022-08-01 13:40 | disposition home or self-care (01) ==
LOC: M INFU 08:30
PROVIDERS: ATTEND Family Medicine
DX: D50.9 Iron deficiency anemia, unspecified (principal); Z88.0 Allergy status to penicillin; Z88.2 Allergy status to sulfonamides; Z88.5 Allergy status to narcotic agent; Z88.8 Allergy status to other drugs, medicaments and biological substances; Z88.7 Allergy status to serum and vaccine
CPT/HCPCS: 96365; 96366; J1756

== ENCOUNTER → 2022-08-04 | Outpatient (CLI) | payer OTHER ==
[~2022-08-04] MED LIST changes: -ALBUTEROL SULFATE 2.5 MG/0.5 ML INH NEB SOLN INH PRN; -EPINEPHrine INJ 1 MG/ML 1ML AMP IM PRN; +MIRA3350 PO; -diphenhydrAMINE 50MG/ML VIAL IV PRN; -methylPREDNISolone 125MG 2ML VIAL IV PRN
== END ==
LOC: M LABSMTC 09:56
PROVIDERS: ATTEND Anesthesiology
DX: Z01.818 Encounter for other preprocedural examination (principal); Z11.52 Encounter for screening for COVID-19

== ENCOUNTER 2022-08-07 07:12 | Day surgery (SDC) | payer OTHER ==
[~2022-08-07] VITALS: Ht 162.6 cm; Wt 79.8 kg
[~2022-08-07 07:12] MED LIST changes: +BSS IRRIG/VANCO(10MG)/TOBRA(5MG)/EPINEPH(1:1000-0.5CC)500ML BAG-ORONLY IR ONE; +CYCLOPENTOLATE 1% OPHTH SOLN 2ML BTL OD SCH; +LIDOCAINE 1% SDV 5ML VIAL As Ordered ONE; +MIDAZOLAM INJ 2MG/2ML VIAL (J2250 PER 1MG) As Ordered ONE; +PHENYLEPHRINE 10% OPHTH SOL 5ML OD PRN; +PHENYLEPHRINE 2.5% OPHTH SOL 2ML OD SCH; +TROPICAMIDE 1% OPHTH SOLN 15ML OD SCH; +fentaNYL 100 MCG/2 ML INJECTION As Ordered ONE
[2022-08-07] MEDS ORDERED: LORA-243 PO (07:58)
[2022-08-07] MEDS ORDERED: VENTAER INH (07:58)
[2022-08-07] MEDS ORDERED: BSS IRRIG/VANCO(10MG)/TOBRA(5MG)/EPINEPH(1:1000-0.5CC)500ML BAG-ORONLY IR ONE (08:30)
[2022-08-07] MEDS ORDERED: LIDOCAINE 3.5 % 1ML OPHTH TOPICAL GEL OU ONE (08:30)
[2022-08-07] MEDS ORDERED: OFLOXACIN 0.3 % (OCUFLOX) OPTH SOL 5ML OD ONE (08:30)
[2022-08-07] MEDS ORDERED: ONDANSETRON 4MG 2ML VIAL IV PRN (08:35)
[2022-08-07] MEDS ORDERED: CEFUROXIME 1MG/0.1ML INTRACAMERAL INJ As Ordered ONE (08:39)
[2022-08-07 09:15] VITALS: BP 131/60
== END 2022-08-07 09:41 | disposition home or self-care (01) ==
LOC: M SDC 07:12
PROVIDERS: ATTEND Ophthalmology
DX: H25.11 Age-related nuclear cataract, right eye (principal); E78.5 Hyperlipidemia, unspecified; D64.9 Anemia, unspecified; M81.0 Age-related osteoporosis without current pathological fracture; Z90.710 Acquired absence of both cervix and uterus; Z88.5 Allergy status to narcotic agent; Z88.0 Allergy status to penicillin; Z88.1 Allergy status to other antibiotic agents; Z79.899 Other long term (current) drug therapy; J45.909 Unspecified asthma, uncomplicated; Z79.51 Long term (current) use of inhaled steroids
CPT/HCPCS: 66984; J0697; J2250; J2405; J3010; V2632

== ENCOUNTER → 2022-09-10 | Outpatient (CLI) | payer OTHER ==
[~2022-09-10] MED LIST changes: -BSS IRRIG/VANCO(10MG)/TOBRA(5MG)/EPINEPH(1:1000-0.5CC)500ML BAG-ORONLY IR ONE; -CYCLOPENTOLATE 1% OPHTH SOLN 2ML BTL OD SCH; -LIDOCAINE 1% SDV 5ML VIAL As Ordered ONE; +LORA-243 PO; -MIDAZOLAM INJ 2MG/2ML VIAL (J2250 PER 1MG) As Ordered ONE; -PHENYLEPHRINE 10% OPHTH SOL 5ML OD PRN; -PHENYLEPHRINE 2.5% OPHTH SOL 2ML OD SCH; -TROPICAMIDE 1% OPHTH SOLN 15ML OD SCH; +VENTAER INH; -fentaNYL 100 MCG/2 ML INJECTION As Ordered ONE
== END ==
LOC: M LABSMTC 10:31
PROVIDERS: ATTEND Anesthesiology
DX: Z01.818 Encounter for other preprocedural examination (principal); Z11.52 Encounter for screening for COVID-19

== ENCOUNTER → 2022-10-15 | Outpatient (CLI) | payer OTHER ==
[~2022-10-15] MED LIST changes: +PROB250C PO
== END ==
LOC: M LABSMTC 09:12
PROVIDERS: ATTEND Anesthesiology
DX: Z01.818 Encounter for other preprocedural examination (principal); Z11.52 Encounter for screening for COVID-19

== ENCOUNTER 2022-10-20 09:53 | Day surgery (SDC) | payer OTHER ==
[~2022-10-20] VITALS: Ht 162.6 cm; Wt 80.7 kg
[~2022-10-20 09:53] MED LIST changes: +NS 1,000 ML IV ONE
[2022-10-20] MEDS ORDERED: LIDOCAINE 2% 100MG/5ML SDV (FOR ANES.) As Ordered ONE (12:15)
[2022-10-20] MEDS ORDERED: propofoL 200 MG/20 ML VIAL As Ordered ONE ×2 (12:15→12:22)
[2022-10-20 13:20] VITALS: BP 130/73
== END 2022-10-20 13:29 | disposition home or self-care (01) ==
LOC: M OPP 09:53
PROVIDERS: ATTEND Internal Medicine Gastroenterology
DX: Z12.11 Encounter for screening for malignant neoplasm of colon (principal); D12.6 Benign neoplasm of colon, unspecified; K64.4 Residual hemorrhoidal skin tags; K64.8 Other hemorrhoids; K57.30 Diverticulosis of large intestine without perforation or abscess without bleeding; K44.9 Diaphragmatic hernia without obstruction or gangrene; K22.89 Other specified disease of esophagus; K29.70 Gastritis, unspecified, without bleeding; K30 Functional dyspepsia; Z79.02 Long term (current) use of antithrombotics/antiplatelets; Z79.51 Long term (current) use of inhaled steroids; Z79.52 Long term (current) use of systemic steroids; Z79.899 Other long term (current) drug therapy; Z88.0 Allergy status to penicillin; Z88.1 Allergy status to other antibiotic agents; Z88.2 Allergy status to sulfonamides; Z88.5 Allergy status to narcotic agent; Z88.6 Allergy status to analgesic agent; Z87.42 Personal history of other diseases of the female genital tract; Z90.49 Acquired absence of other specified parts of digestive tract; Z80.6 Family history of leukemia

== ENCOUNTER → 2022-11-03 | Outpatient (CLI) | payer OTHER ==
[~2022-11-03] MED LIST changes: -NS 1,000 ML IV ONE
[2022-11-03 15:46] LABS: BASO # 0.1 10^3/uL (0.0-0.2); BASO % 0.5 % (0.0-1.0); EOS # 0.1 10^3/uL (0.0-0.5); EOS % 1.5 % (0.0-3.0); HEMATOCRIT 41.5 % (36.0-47.0); HEMOGLOBIN 13.4 g/dl (12.0-15.5); LYMPH # 2.9 10^3/uL (1.5-5.0); LYMPH % 31.1 % (24.0-44.0); MEAN CORPUSCULAR HEMOGLOBIN 27.5 pg (27.0-33.0); MEAN CORPUSCULAR HGB CONC 32.3 g/dl (32.0-36.5); MONO # 0.8 10^3/uL (0.0-0.8); MONO % 8.5 % (2.0-8.0); NEUTROPHILS # 5.3 10^3/uL (1.5-8.5); NEUTROPHILS % 57.9 % (36.0-66.0); PLATELET COUNT, AUTOMATED 330 10^3/uL (150-450); RED BLOOD COUNT 4.88 10^6/uL (4.00-5.40); WHITE BLOOD COUNT 9.2 10^3/uL (4.0-10.0)
[2022-11-03 15:49] LABS: FERRITIN 14.7 NG/ML (7.3-270.7)
== END ==
LOC: M PLALAB 13:32
PROVIDERS: ATTEND Family Medicine
DX: D50.9 Iron deficiency anemia, unspecified (principal)

== ENCOUNTER 2022-11-06 08:42 | Outpatient (CLI) | payer OTHER ==
[~2022-11-06] VITALS: Ht 162.6 cm; Wt 88.0 kg
[~2022-11-06 08:42] MED LIST changes: +ALBUTEROL SULFATE 2.5MG/0.5ML INH NEB SOLN INH PRN; +EPINEPHrine INJ 1 MG/ML 1ML AMP IM PRN; +diphenhydrAMINE 50MG/ML VIAL IV PRN
[2022-11-06] MEDS ORDERED: IRON SUCROSE 500 MG in NS 250 ML OVER 4 HRS IV ONE (09:00)
[2022-11-06 09:01] VITALS: BP 144/72
[2022-11-06] MEDS ORDERED: NS 1,000 ML IV SCH (09:15)
[2022-11-06 10:30] VITALS: BP 108/56
[2022-11-06 11:30] VITALS: BP 122/62
[2022-11-06 12:30] VITALS: BP 115/68
[2022-11-06 13:47] VITALS: BP 122/57
== END 2022-11-06 13:45 | disposition home or self-care (01) ==
LOC: M INFU 08:42
PROVIDERS: ATTEND Family Medicine
DX: D50.9 Iron deficiency anemia, unspecified (principal); Z88.0 Allergy status to penicillin; Z88.2 Allergy status to sulfonamides; Z88.5 Allergy status to narcotic agent; Z88.8 Allergy status to other drugs, medicaments and biological substances; Z88.7 Allergy status to serum and vaccine; Z88.1 Allergy status to other antibiotic agents
CPT/HCPCS: 96365; 96366; J1756

== ENCOUNTER 2023-01-16 01:36 | Emergency (ER) | payer OTHER ==
[~2023-01-16] VITALS: Ht 162.6 cm; Wt 81.9 kg
[~2023-01-16 01:36] MED LIST changes: -ALBUTEROL SULFATE 2.5MG/0.5ML INH NEB SOLN INH PRN; -EPINEPHrine INJ 1 MG/ML 1ML AMP IM PRN; +FLUT50SP17 NARES; -FLUTISP NARES; -diphenhydrAMINE 50MG/ML VIAL IV PRN
[2023-01-16 01:37] VITALS: BP 107/69
== END 2023-01-16 04:56 | disposition left against medical advice (07) ==
LOC: M ED 01:36
DX: Z53.21 Procedure and treatment not carried out due to patient leaving prior to being seen by health care provider (principal)

== ENCOUNTER → 2023-01-21 | Outpatient (CLI) | payer OTHER ==
[2023-01-21 13:35] LABS: FOLLICLE STIMULATING HORMONE 83.6 mIU/ML; LUTEINIZING HORMONE 44.8 mIU/ML
[2023-01-21 13:36] LABS: ESTRADIOL 24.2 PG/ML
[2023-01-23 19:07] LABS: TESTOSTERONE FREE (DIRECT) 0.7 pg/mL (0.0-4.2)
== END ==
LOC: M PLALAB 11:19
PROVIDERS: ATTEND Specialist
DX: R10.2 Pelvic and perineal pain (principal)

== ENCOUNTER → 2023-02-10 | Outpatient (CLI) | payer OTHER | LOC: M PLAIMG 11:01 | PROVIDERS: ATTEND Nurse Practitioner Family | DX: M25.561 Pain in right knee (principal); M79.671 Pain in right foot ==

== ENCOUNTER → 2023-02-11 | Outpatient (CLI) | payer OTHER | LOC: M WHC 10:01 | PROVIDERS: ATTEND Family Medicine | DX: Z12.31 Encounter for screening mammogram for malignant neoplasm of breast (principal) ==

== ENCOUNTER → 2023-04-02 | Outpatient (REF) | payer OTHER ==
[~2023-04-02] MED LIST changes: +DICY-61 PO; -DICY10CA13 PO; -ROSU20TA5 PO; +ROSU20TA61 PO
== END ==
LOC: M SFHCPLAZ 13:17
PROVIDERS: ATTEND Family Medicine
DX: L98.8 Other specified disorders of the skin and subcutaneous tissue (principal)

== ENCOUNTER → 2023-04-13 | Outpatient (CLI) | payer OTHER ==
[2023-04-13 15:58] LABS: ALBUMIN 3.8 G/DL (3.2-5.2); ALKALINE PHOSPHATASE 29 U/L (46-116); ALT/SGPT 28 U/L (7.0-40); AST/SGOT 12 U/L (<34); BILIRUBIN,TOTAL 0.4 MG/DL (0.3-1.2); BLOOD UREA NITROGEN 18 MG/DL (9-23); CALCIUM LEVEL 9.7 MG/DL (8.5-10.1); CARBON DIOXIDE LEVEL 28 MMOL/L (20-31); CHLORIDE LEVEL 104 MMOL/L (98-107); CHOLESTEROL LEVEL 313 MG/DL (<200); CREATININE FOR GFR 0.75 MG/DL (0.55-1.30); GLOMERULAR FILTRATION RATE > 60.0 (>51); GLUCOSE, FASTING 86 MG/DL (60-100); HDL CHOLESTEROL 56.9 MG/DL (>40); LDL CHOLESTEROL 234.5 MG/DL (<100); NON-HDL-C 256.1 MG/DL; POTASSIUM SERUM 4.2 MMOL/L (3.5-5.1); SODIUM LEVEL 140 MMOL/L (136-145); TOTAL PROTEIN 7.3 G/DL (5.7-8.2); TRIGLYCERIDES LEVEL 108 MG/DL (<150)
[2023-04-13 16:00] LABS: FERRITIN 84.2 NG/ML (7.3-270.7); TOTAL 25(OH) VITAMIN D 45.7 NG/ML (20.0-100.0)
[2023-04-13 16:49] LABS: BASO # 0.1 10^3/uL (0.0-0.2); BASO % 0.7 % (0.0-1.0); EOS # 0.2 10^3/uL (0.0-0.5); HEMATOCRIT 45.9 % (36.0-47.0); LYMPH # 2.7 10^3/uL (1.5-5.0); MEAN CORPUSCULAR HEMOGLOBIN 28.5 pg (27.0-33.0); MEAN CORPUSCULAR HGB CONC 32.7 g/dl (32.0-36.5); MEAN CORPUSCULAR VOLUME 87.1 fl (80.0-96.0); MONO # 0.7 10^3/uL (0.0-0.8); MONO % 8.5 % (2.0-8.0); NEUTROPHILS # 4.7 10^3/uL (1.5-8.5); NEUTROPHILS % 56.2 % (36.0-66.0); PLATELET COUNT, AUTOMATED 340 10^3/uL (150-450); RED BLOOD COUNT 5.27 10^6/uL (4.00-5.40); WHITE BLOOD COUNT 8.3 10^3/uL (4.0-10.0)
[2023-04-13 17:07] LABS: PTH INTACT 85.1 PG/ML (18.5-88.0)
[2023-04-13 17:08] LABS: CPK CREATINE PHOSPHOKINASE 61 U/L (34-145)
[2023-04-13 18:11] LABS: HEMOGLOBIN A1c 5.7 % (4.0-6.0)
== END ==
LOC: M PLALAB 14:08
PROVIDERS: ATTEND Family Medicine
DX: D50.9 Iron deficiency anemia, unspecified (principal); R73.01 Impaired fasting glucose; E55.9 Vitamin D deficiency, unspecified; E78.5 Hyperlipidemia, unspecified

== ENCOUNTER → 2023-04-13 | Outpatient (REF) | payer OTHER | LOC: M SFHCPLAZ 14:01 | PROVIDERS: ATTEND Family Medicine | DX: Z53.9 Procedure and treatment not carried out, unspecified reason (principal) ==

== ENCOUNTER → 2023-04-14 | Outpatient (REF) | payer OTHER | LOC: M SFHCPLAZ 14:01 | PROVIDERS: ATTEND Family Medicine | DX: Z53.9 Procedure and treatment not carried out, unspecified reason (principal) ==

== ENCOUNTER → 2023-05-12 | Outpatient (REF) | payer OTHER ==
[~2023-05-12] MED LIST changes: +CARA1TAB6 PO; +CELE0.09 PO; -CELE1CAP9 PO; +LORA1TAB23 PO; +PRAV40TA2 PO; +PREDOPD OP
== END ==
LOC: M SFHCPLAZ 10:01
PROVIDERS: ATTEND Family Medicine
DX: L57.0 Actinic keratosis (principal)

== ENCOUNTER 2023-06-03 12:47 | Day surgery (SDC) | payer OTHER ==
[~2023-06-03] VITALS: Ht 162.6 cm; Wt 83.0 kg
[~2023-06-03 12:47] MED LIST changes: +ACETYLCHOLINE OPHTH SOLN 1% 2ML (MIOCHOL-E) As Ordered ONE; +BSS IRRIG/VANCO(10MG)/TOBRA(5MG)/EPINEPH(1:1000-0.5CC)500ML BAG-ORONLY IR ONE; -CARA1TAB6 PO; +CEFUROXIME 1MG/0.1ML INTRACAMERAL INJ As Ordered ONE; +CYCLOPENTOLATE 1% OPHTH SOLN 2ML BTL OS SCH; +LIDOCAINE 1% SDV 5ML VIAL As Ordered ONE; +LIDOCAINE 3.5 % 1ML OPHTH TOPICAL GEL OU ONE; +OFLOXACIN 0.3 % (OCUFLOX) OPTH SOL 5ML OS ONE; +PHENYLEPHRINE 10% OPHTH SOL 5ML OS PRN; +PHENYLEPHRINE 2.5% OPHTH SOL 2ML OS SCH; -PREDOPD OP; +TROPICAMIDE 1% OPHTH SOLN 15ML OS SCH
[2023-06-03] MEDS ORDERED: MIDAZOLAM INJ 2MG/2ML VIAL As Ordered ONE (13:05)
[2023-06-03] MEDS ORDERED: fentaNYL 100 MCG/2 ML INJECTION As Ordered ONE (13:06)
[2023-06-03] MEDS ORDERED: ONDANSETRON 4MG 2ML VIAL IV ONE (13:35)
[2023-06-03 14:24] VITALS: BP 104/59; TEMP 97.7; O2SAT 96
== END 2023-06-03 15:01 | disposition home or self-care (01) ==
LOC: M SDC 12:47
PROVIDERS: ATTEND Ophthalmology
DX: H25.12 Age-related nuclear cataract, left eye (principal); Z87.891 Personal history of nicotine dependence; Z88.5 Allergy status to narcotic agent; Z88.0 Allergy status to penicillin; Z88.1 Allergy status to other antibiotic agents; Z88.7 Allergy status to serum and vaccine; Z88.2 Allergy status to sulfonamides
CPT/HCPCS: 66984; 92015; J0697; J2250; J2405; J3010; V2632

== ENCOUNTER 2023-06-14 17:13 | Emergency (ER) | payer OTHER ==
[~2023-06-14] VITALS: Ht 162.6 cm; Wt 83.4 kg
[~2023-06-14 17:13] MED LIST changes: -ACETYLCHOLINE OPHTH SOLN 1% 2ML (MIOCHOL-E) As Ordered ONE; -BSS IRRIG/VANCO(10MG)/TOBRA(5MG)/EPINEPH(1:1000-0.5CC)500ML BAG-ORONLY IR ONE; -CEFUROXIME 1MG/0.1ML INTRACAMERAL INJ As Ordered ONE; -CYCLOPENTOLATE 1% OPHTH SOLN 2ML BTL OS SCH; -LIDOCAINE 1% SDV 5ML VIAL As Ordered ONE; -LIDOCAINE 3.5 % 1ML OPHTH TOPICAL GEL OU ONE; -OFLOXACIN 0.3 % (OCUFLOX) OPTH SOL 5ML OS ONE; -PHENYLEPHRINE 10% OPHTH SOL 5ML OS PRN; -PHENYLEPHRINE 2.5% OPHTH SOL 2ML OS SCH; -TROPICAMIDE 1% OPHTH SOLN 15ML OS SCH
[2023-06-14] MEDS ORDERED: PREDOPD OP (17:20)
[2023-06-14 18:11] LABS: BASO % 0.5 % (0.0-1.0); EOS # 0.2 10^3/uL (0.0-0.5); EOS % 1.8 % (0.0-3.0); HEMATOCRIT 43.6 % (36.0-47.0); HEMOGLOBIN 14.5 g/dl (12.0-15.5); LYMPH # 2.7 10^3/uL (1.5-5.0); LYMPH % 31.7 % (24.0-44.0); MEAN CORPUSCULAR HEMOGLOBIN 28.2 pg (27.0-33.0); MEAN CORPUSCULAR HGB CONC 33.3 g/dl (32.0-36.5); MEAN CORPUSCULAR VOLUME 84.7 fl (80.0-96.0); MONO # 0.8 10^3/uL (0.0-0.8); MONO % 9.4 % (2.0-8.0); NEUTROPHILS # 4.8 10^3/uL (1.5-8.5); PLATELET COUNT, AUTOMATED 313 10^3/uL (150-450); RED BLOOD COUNT 5.15 10^6/uL (4.00-5.40); WHITE BLOOD COUNT 8.5 10^3/uL (4.0-10.0)
[2023-06-14 18:32] LABS: LIPASE 45 U/L (12-53)
[2023-06-14 18:34] LABS: ALBUMIN 3.8 G/DL (3.2-5.2); ALKALINE PHOSPHATASE 30 U/L (46-116); ALT/SGPT 23 U/L (7.0-40); AST/SGOT 19 U/L (<34); BILIRUBIN,DIRECT 0.1 MG/DL (<0.4); BILIRUBIN,TOTAL 0.5 MG/DL (0.3-1.2); BLOOD UREA NITROGEN 24 MG/DL (9-23); CARBON DIOXIDE LEVEL 27 MMOL/L (20-31); CHLORIDE LEVEL 106 MMOL/L (98-107); CREATININE FOR GFR 0.88 MG/DL (0.55-1.30); GLOMERULAR FILTRATION RATE > 60.0 (>51); GLUCOSE, FASTING 93 MG/DL (60-100); SODIUM LEVEL 142 MMOL/L (136-145); TOTAL PROTEIN 7.1 G/DL (5.7-8.2)
[2023-06-14] MEDS ORDERED: CARA1TAB6 PO (18:43)
[2023-06-14] MEDS ORDERED: ISOVUE-370 76% 100ML VIAL As Ordered ONE (18:51)
[2023-06-14 20:00] VITALS: BP 132/63
[2023-06-14 20:01] VITALS: TEMP 97.9; O2SAT 98
== END 2023-06-14 20:14 | disposition home or self-care (01) ==
LOC: M ED 17:13
DX: R07.89 Other chest pain (principal); K21.9 Gastro-esophageal reflux disease without esophagitis; K29.50 Unspecified chronic gastritis without bleeding; R93.1 Abnormal findings on diagnostic imaging of heart and coronary circulation; F32.9 Major depressive disorder, single episode, unspecified; F12.90 Cannabis use, unspecified, uncomplicated; Z82.49 Family history of ischemic heart disease and other diseases of the circulatory system; Z79.899 Other long term (current) drug therapy; Z88.0 Allergy status to penicillin; Z88.2 Allergy status to sulfonamides; Z88.5 Allergy status to narcotic agent; Z88.8 Allergy status to other drugs, medicaments and biological substances; Z88.7 Allergy status to serum and vaccine
CPT/HCPCS: 71275; 80048; 80076; 83690; 84484; 85025; 93005; 93041; 94760; 99285; Q9967

== ENCOUNTER → 2023-06-22 | Outpatient (CLI) | payer OTHER ==
[~2023-06-22] MED LIST changes: +CARA1TAB6 PO; +PREDOPD OP
[2023-06-23 01:08] LABS: THYROID STIMULATING HORMONE 0.716 uIU/ML (0.55-4.78)
[2023-06-23 01:10] LABS: ALKALINE PHOSPHATASE 32 U/L (46-116); BLOOD UREA NITROGEN 22 MG/DL (9-23); CREATININE FOR GFR 0.71 MG/DL (0.55-1.30); GLOMERULAR FILTRATION RATE > 60.0 (>51)
[2023-06-23 01:11] LABS: FREE T4 1.12 NG/DL (0.89-1.76)
== END ==
LOC: M PLALAB 10:59
PROVIDERS: ATTEND Internal Medicine Gastroenterology
DX: R11.0 Nausea (principal); E07.9 Disorder of thyroid, unspecified

== ENCOUNTER → 2023-06-23 | Outpatient (CLI) | payer OTHER | LOC: M RAD 18:49 | PROVIDERS: ATTEND Family Medicine | DX: R91.8 Other nonspecific abnormal finding of lung field (principal) ==

== ENCOUNTER → 2023-06-23 | Outpatient (CLI) | payer OTHER ==
[~2023-06-23] MED LIST changes: +GASTROGRAFIN SOLUTION 30ML As Ordered ONE; +ISOVUE-370 76% 100ML VIAL As Ordered ONE
== END ==
LOC: M RAD 12:49
PROVIDERS: ATTEND Internal Medicine Gastroenterology
DX: K44.9 Diaphragmatic hernia without obstruction or gangrene (principal); K57.30 Diverticulosis of large intestine without perforation or abscess without bleeding; R14.0 Abdominal distension (gaseous)

== ENCOUNTER → 2023-06-25 | Outpatient (CLI) | payer OTHER ==
[~2023-06-25] MED LIST changes: -GASTROGRAFIN SOLUTION 30ML As Ordered ONE; -ISOVUE-370 76% 100ML VIAL As Ordered ONE
== END ==
LOC: M RAD 09:06
PROVIDERS: ATTEND Family Medicine
DX: Z53.9 Procedure and treatment not carried out, unspecified reason (principal)

== ENCOUNTER → 2023-07-29 | Outpatient (CLI) | payer OTHER | LOC: M RAD 13:39 | PROVIDERS: ATTEND Internal Medicine Gastroenterology | DX: T18.3XXA Foreign body in small intestine, initial encounter (principal) ==

== ENCOUNTER → 2023-08-04 | Outpatient (CLI) | payer OTHER, MEDICAID ==
[~2023-08-04] MED LIST changes: -FLUT50SP17 NARES; +FLUTISP NARES
== END ==
LOC: M RAD 14:01
PROVIDERS: ATTEND Internal Medicine Gastroenterology
DX: T18.3XXA Foreign body in small intestine, initial encounter (principal); T18.4XXA Foreign body in colon, initial encounter

== ENCOUNTER → 2023-08-18 | Outpatient (CLI) | payer OTHER, MEDICAID ==
[~2023-08-18] MED LIST changes: +ISOVUE-370 76% 100ML VIAL As Ordered ONE
== END ==
LOC: M RAD 08:12
PROVIDERS: ATTEND Internal Medicine Gastroenterology
DX: R91.8 Other nonspecific abnormal finding of lung field (principal)
CPT/HCPCS: 74177; Q9967

== ENCOUNTER → 2023-08-18 | Outpatient (CLI) | payer OTHER, MEDICAID ==
[~2023-08-18] MED LIST changes: +GLUCAGON INJ 1MG VIAL As Ordered ONE; +NEULUMEX 0.1% SUSPENSION 450ML BOTTLE (FORMERLY VOLUMEN) As Ordered ONE
== END ==
LOC: M RAD 08:14
PROVIDERS: ATTEND Family Medicine
DX: R91.8 Other nonspecific abnormal finding of lung field (principal)
CPT/HCPCS: 71260; 74177; J1610; Q9967

== ENCOUNTER 2023-09-14 06:16 | Day surgery (SDC) | payer OTHER, MEDICAID ==
[~2023-09-14] VITALS: Ht 162.6 cm; Wt 84.5 kg
[~2023-09-14 06:16] MED LIST changes: -GLUCAGON INJ 1MG VIAL As Ordered ONE; -ISOVUE-370 76% 100ML VIAL As Ordered ONE; -NEULUMEX 0.1% SUSPENSION 450ML BOTTLE (FORMERLY VOLUMEN) As Ordered ONE; +PROL60SO SC; +SENN-186 PO
[2023-09-14] MEDS ORDERED: LR 1,000 ML IV SCH ×2 (06:50→09:00)
[2023-09-14] MEDS ORDERED: ONDANSETRON 4MG 2ML VIAL IV ONE (07:05)
[2023-09-14] MEDS ORDERED: VASOPRESSIN INJ 20UNITS/ML 1ML VIAL As Ordered ONE (07:26)
[2023-09-14] MEDS ORDERED: SCOPOLAMINE 1MG TRANSDERMAL PATCH TOP ONE (07:35)
[2023-09-14] MEDS ORDERED: SCOPOLAMINE 1MG TRANSDERMAL PATCH As Ordered ONE (07:39)
[2023-09-14 07:40] LABS: HEMATOCRIT 45.3 % (36.0-47.0); HEMOGLOBIN 15.2 g/dl (12.0-15.5); MEAN CORPUSCULAR HEMOGLOBIN 29.1 pg (27.0-33.0); MEAN CORPUSCULAR HGB CONC 33.6 g/dl (32.0-36.5); MEAN CORPUSCULAR VOLUME 86.6 fl (80.0-96.0); PLATELET COUNT, AUTOMATED 334 10^3/uL (150-450); RED BLOOD COUNT 5.23 10^6/uL (4.00-5.40); WHITE BLOOD COUNT 8.1 10^3/uL (4.0-10.0)
[2023-09-14] MEDS ORDERED: SUGAMMADEX SODIUM 500 MG/5 ML VIAL (BRIDION) As Ordered ONE (08:04)
[2023-09-14] MEDS ORDERED: ROCURONIUM BROMIDE 50MG/5ML VIAL As Ordered ONE (08:04)
[2023-09-14] MEDS ORDERED: ACETAMINOPHEN 1000MG 100ML IV BAG As Ordered ONE (08:04)
[2023-09-14] MEDS ORDERED: propofoL 200 MG/20 ML VIAL As Ordered ONE (08:04)
[2023-09-14] MEDS ORDERED: MIDAZOLAM INJ 2MG/2ML VIAL As Ordered ONE (08:04)
[2023-09-14] MEDS ORDERED: ONDANSETRON 4MG 2ML VIAL As Ordered ONE (08:04)
[2023-09-14] MEDS ORDERED: fentaNYL 100 MCG/2 ML INJECTION As Ordered ONE ×2 (08:04→08:39)
[2023-09-14] MEDS ORDERED: KETOROLAC 60MG 2ML VIAL As Ordered ONE (08:06)
[2023-09-14] MEDS ORDERED: PHENYLephrine 500MCG 5ML (100MCG/ML) SYRINGE As Ordered ONE (08:51)
[2023-09-14] MEDS ORDERED: fentaNYL 100 MCG/2 ML INJECTION IV PRN (09:00)
[2023-09-14] MEDS ORDERED: oxyCODONE 5MG TAB PO PRN (09:00)
[2023-09-14] MEDS ORDERED: ONDANSETRON 4MG 2ML VIAL IV PRN (09:00)
[2023-09-14] MEDS ORDERED: HYDROMORPHONE HCL 0.5 MG/ 0.5 ML SYRINGE IV PRN (09:00)
[2023-09-14] MEDS ORDERED: OXYC1TAB23 PO (09:25)
[2023-09-14] MEDS ORDERED: IBUP-1022 PO (09:25)
[2023-09-14] MEDS ORDERED: PERCOCET 5MG/325MG TAB PO PRN (09:55)
[2023-09-14 11:05] VITALS: BP 131/61; TEMP 97; O2SAT 98
== END 2023-09-14 11:45 | disposition home or self-care (01) ==
LOC: M SDC 06:16
PROVIDERS: ATTEND Specialist
DX: N80.321 Superficial endometriosis of the posterior cul-de-sac (principal); K66.0 Peritoneal adhesions (postprocedural) (postinfection); N32.89 Other specified disorders of bladder; R10.2 Pelvic and perineal pain; E78.00 Pure hypercholesterolemia, unspecified; D64.9 Anemia, unspecified; K21.9 Gastro-esophageal reflux disease without esophagitis; K58.1 Irritable bowel syndrome with constipation; M85.80 Other specified disorders of bone density and structure, unspecified site; F32.A Depression, unspecified; F41.9 Anxiety disorder, unspecified; J45.909 Unspecified asthma, uncomplicated; Z88.5 Allergy status to narcotic agent; Z88.4 Allergy status to anesthetic agent; Z88.8 Allergy status to other drugs, medicaments and biological substances; Z88.1 Allergy status to other antibiotic agents; Z88.0 Allergy status to penicillin; Z88.7 Allergy status to serum and vaccine; Z88.2 Allergy status to sulfonamides; Z79.899 Other long term (current) drug therapy
CPT/HCPCS: 36415; 58662; 85027; J0131; J0665; J1885; J2250; J2371; J2405; J3010; S2900

== ENCOUNTER 2023-09-29 22:29 | Emergency (ER) | payer OTHER, MEDICAID ==
[~2023-09-29] VITALS: Ht 162.6 cm; Wt 85.3 kg
[2023-09-29 22:30] VITALS: TEMP 97.9
[2023-09-30 00:05] LABS: LIPASE 41 U/L (12-53)
[2023-09-30 00:22] LABS: BASO % 0.5 % (0.0-1.0); EOS # 0.3 10^3/uL (0.0-0.5); HEMATOCRIT 43.9 % (36.0-47.0); HEMOGLOBIN 14.5 g/dl (12.0-15.5); LYMPH # 3.1 10^3/uL (1.5-5.0); LYMPH % 36.2 % (24.0-44.0); MEAN CORPUSCULAR HEMOGLOBIN 28.8 pg (27.0-33.0); MEAN CORPUSCULAR VOLUME 87.3 fl (80.0-96.0); MONO # 0.8 10^3/uL (0.0-0.8); MONO % 9.3 % (2.0-8.0); NEUTROPHILS # 4.2 10^3/uL (1.5-8.5); NEUTROPHILS % 49.4 % (36.0-66.0); PLATELET COUNT, AUTOMATED 326 10^3/uL (150-450); RED BLOOD COUNT 5.03 10^6/uL (4.00-5.40); WHITE BLOOD COUNT 8.6 10^3/uL (4.0-10.0)
[2023-09-30 00:28] LABS: ALBUMIN 3.7 G/DL (3.2-5.2); ALKALINE PHOSPHATASE 33 U/L (46-116); ALT/SGPT 23 U/L (7.0-40); AST/SGOT 16 U/L (<34); BILIRUBIN,DIRECT < 0.1 MG/DL (<0.4); BILIRUBIN,TOTAL 0.3 MG/DL (0.3-1.2); TOTAL PROTEIN 7.5 G/DL (5.7-8.2)
[2023-09-30] MEDS ORDERED: ONDANSETRON 4MG 2ML VIAL IV ONE (01:15)
[2023-09-30 01:31] LABS: BLOOD UREA NITROGEN 13 MG/DL (9-23); CALCIUM LEVEL 8.9 MG/DL (8.5-10.1); CARBON DIOXIDE LEVEL 27 MMOL/L (20-31); CHLORIDE LEVEL 105 MMOL/L (98-107); CREATININE FOR GFR 0.69 MG/DL (0.55-1.30); GLOMERULAR FILTRATION RATE > 60.0 (>51); GLUCOSE, FASTING 92 MG/DL (60-100); POTASSIUM SERUM 3.9 MMOL/L (3.5-5.1); SODIUM LEVEL 139 MMOL/L (136-145)
[2023-09-30] MEDS: GASTROGRAFIN SOLUTION 30ML PO SCH ×2 (01:40→02:12)
[2023-09-30] MEDS ORDERED: ISOVUE-370 76% 100ML VIAL As Ordered ONE (01:59)
[2023-09-30 03:21] VITALS: BP 152/72; O2SAT 94
[2023-09-30] MEDS ORDERED: REGL5TAB2 PO (04:10)
== END 2023-09-30 04:21 | disposition home or self-care (01) ==
LOC: M ED 22:29
DX: K31.84 Gastroparesis (principal); F32.A Depression, unspecified; Z87.891 Personal history of nicotine dependence; Z79.899 Other long term (current) drug therapy; Z88.0 Allergy status to penicillin; Z88.2 Allergy status to sulfonamides; Z88.5 Allergy status to narcotic agent; Z88.8 Allergy status to other drugs, medicaments and biological substances
CPT/HCPCS: 36415; 74177; 80047; 80048; 80076; 83690; 85025; 96374; 99284; J2405; Q9963; Q9967

== ENCOUNTER → 2023-10-01 | Outpatient (CLI) | payer OTHER, MEDICAID ==
[~2023-10-01] MED LIST changes: +REGL5TAB2 PO
== END ==
LOC: M PLALAB 12:37
PROVIDERS: ATTEND Family Medicine
DX: R10.13 Epigastric pain (principal); J30.9 Allergic rhinitis, unspecified

== ENCOUNTER 2023-10-12 09:43 | Emergency (ER) | payer OTHER, MEDICAID ==
[~2023-10-12] VITALS: Ht 162.6 cm; Wt 84.9 kg
[2023-10-12 12:20] LABS: BASO # 0.1 10^3/uL (0.0-0.2); BASO % 0.6 % (0.0-1.0); EOS # 0.6 10^3/uL (0.0-0.5); EOS % 7.1 % (0.0-3.0); HEMATOCRIT 46.3 % (36.0-47.0); HEMOGLOBIN 15.2 g/dl (12.0-15.5); LYMPH # 2.5 10^3/uL (1.5-5.0); LYMPH % 29.7 % (24.0-44.0); MEAN CORPUSCULAR HEMOGLOBIN 28.4 pg (27.0-33.0); MEAN CORPUSCULAR HGB CONC 32.8 g/dl (32.0-36.5); MEAN CORPUSCULAR VOLUME 86.4 fl (80.0-96.0); MONO # 0.7 10^3/uL (0.0-0.8); MONO % 7.9 % (2.0-8.0); NEUTROPHILS # 4.6 10^3/uL (1.5-8.5); RED BLOOD COUNT 5.36 10^6/uL (4.00-5.40); WHITE BLOOD COUNT 8.5 10^3/uL (4.0-10.0)
[2023-10-12 12:35] LABS: INR 0.93; PROTHROMBIN TIME 12.2 SECONDS (12.5-14.5)
[2023-10-12 12:42] LABS: ALBUMIN 3.7 G/DL (3.2-5.2); ALKALINE PHOSPHATASE 30 U/L (46-116); ALT/SGPT 31 U/L (7.0-40); AST/SGOT 26 U/L (<34); BILIRUBIN,DIRECT < 0.1 MG/DL (<0.4); BILIRUBIN,TOTAL 0.3 MG/DL (0.3-1.2); BLOOD UREA NITROGEN 13 MG/DL (9-23); CALCIUM LEVEL 9.2 MG/DL (8.5-10.1); CARBON DIOXIDE LEVEL 23 MMOL/L (20-31); CHLORIDE LEVEL 108 MMOL/L (98-107); CREATININE FOR GFR 0.62 MG/DL (0.55-1.30); GLOMERULAR FILTRATION RATE > 60.0 (>51); GLUCOSE, FASTING 86 MG/DL (60-100); POTASSIUM SERUM 4.4 MMOL/L (3.5-5.1); SODIUM LEVEL 139 MMOL/L (136-145)
[2023-10-12] MEDS ORDERED: ISOVUE-370 76% 100ML VIAL As Ordered ONE (13:46)
[2023-10-12 16:25] VITALS: BP 104/51; TEMP 97.6; O2SAT 97
== END 2023-10-12 16:29 | disposition home or self-care (01) ==
LOC: M ED 09:43
DX: J06.9 Acute upper respiratory infection, unspecified (principal); B34.2 Coronavirus infection, unspecified; J45.909 Unspecified asthma, uncomplicated; K21.9 Gastro-esophageal reflux disease without esophagitis; F31.9 Bipolar disorder, unspecified; Z88.0 Allergy status to penicillin; Z88.2 Allergy status to sulfonamides; Z88.5 Allergy status to narcotic agent; Z88.8 Allergy status to other drugs, medicaments and biological substances; Z88.7 Allergy status to serum and vaccine; Z79.899 Other long term (current) drug therapy
CPT/HCPCS: 71046; 71275; 80048; 80076; 83880; 84484; 85025; 85610; 87486; 87581; 87633; 87798; 93005; 99284; Q9967

== ENCOUNTER → 2023-12-22 | Outpatient (CLI) | payer OTHER ==
[2023-12-22 12:32] LABS: BASO # 0.1 10^3/uL (0.0-0.2); BASO % 0.7 % (0.0-1.0); EOS # 0.2 10^3/uL (0.0-0.5); EOS % 2.5 % (0.0-3.0); HEMATOCRIT 45.7 % (36.0-47.0); LYMPH # 2.5 10^3/uL (1.5-5.0); MEAN CORPUSCULAR HEMOGLOBIN 28.4 pg (27.0-33.0); MEAN CORPUSCULAR HGB CONC 32.8 g/dl (32.0-36.5); MEAN CORPUSCULAR VOLUME 86.4 fl (80.0-96.0); MONO # 0.7 10^3/uL (0.0-0.8); MONO % 9.8 % (2.0-8.0); NEUTROPHILS # 3.7 10^3/uL (1.5-8.5); NEUTROPHILS % 51.4 % (36.0-66.0); PLATELET COUNT, AUTOMATED 323 10^3/uL (150-450); RED BLOOD COUNT 5.29 10^6/uL (4.00-5.40); WHITE BLOOD COUNT 7.3 10^3/uL (4.0-10.0)
[2023-12-22 13:04] LABS: ALBUMIN 3.8 G/DL (3.2-5.2); ALKALINE PHOSPHATASE 29 U/L (46-116); ALT/SGPT 18 U/L (7.0-40); AST/SGOT 17 U/L (<34); BILIRUBIN,TOTAL 0.3 MG/DL (0.3-1.2); BLOOD UREA NITROGEN 18 MG/DL (9-23); CALCIUM LEVEL 9.5 MG/DL (8.5-10.1); CARBON DIOXIDE LEVEL 29 MMOL/L (20-31); CHLORIDE LEVEL 103 MMOL/L (98-107); CREATININE FOR GFR 0.75 MG/DL (0.55-1.30); GLOMERULAR FILTRATION RATE > 60.0 (>51); GLUCOSE, FASTING 78 MG/DL (60-100); IRON (FE) 62 UG/DL (50-170); MAGNESIUM LEVEL 2.2 MG/DL (1.8-2.4); POTASSIUM SERUM 4.2 MMOL/L (3.5-5.1); SODIUM LEVEL 137 MMOL/L (136-145)
[2023-12-22 13:06] LABS: FERRITIN 59.5 NG/ML (7.3-270.7); FREE T4 1.01 NG/DL (0.89-1.76); THYROID STIMULATING HORMONE 0.831 uIU/ML (0.55-4.78)
[2023-12-22 13:07] LABS: APPEARANCE, URINE HAZY (CLEAR); BACTERIA, URINE AUTO NEGATIVE (NEGATIVE); BILIRUBIN, URINE AUTO NEGATIVE (NEGATIVE); BLOOD, URINE BLOOD NEGATIVE (NEGATIVE); COLOR, URINE YELLOW (YELLOW); GLUCOSE, URINE (UA) AUTO NEGATIVE (NEGATIVE); KETONE, URINE AUTO NEGATIVE (NEGATIVE); LEUKOCYTE ESTERASE, URINE AUTO NEGATIVE (NEGATIVE); MUCUS, URINE MODERATE (NEGATIVE); NITRITE, URINE AUTO NEGATIVE (NEGATIVE); PROTEIN, URINE AUTO 1+ mg/dL (NEGATIVE); RBC, URINE AUTO 0 /HPF (0-3); SPECIFIC GRAVITY URINE AUTO 1.028 (1.002-1.035); SQUAMOUS EPITHELIAL CELL UR AU 3 /HPF (0-6); UROBILINOGEN, URINE AUTO 0.2 mg/dL (0.0-2.0); WBC, URINE AUTO 0 /HPF (0-3)
== END ==
LOC: M PLALAB 11:06
PROVIDERS: ATTEND Physician Assistant Medical
DX: R53.83 Other fatigue (principal); Z86.39 Personal history of other endocrine, nutritional and metabolic disease

== ENCOUNTER → 2023-12-22 | Outpatient (REF) | payer OTHER | LOC: M SFHCPLAZ 10:58 | PROVIDERS: ATTEND Physician Assistant Medical | DX: R53.83 Other fatigue (principal) ==

== ENCOUNTER → 2024-01-22 | Outpatient (CLI) | payer OTHER | LOC: M SLEEP HO 11:00 | PROVIDERS: ATTEND Physician Assistant Medical | DX: G47.33 Obstructive sleep apnea (adult) (pediatric) (principal) ==

== ENCOUNTER → 2024-02-15 | Outpatient (CLI) | payer OTHER ==
[~2024-02-15] MED LIST changes: +E-Z-GAS II EFFERVESCENT PACKET (SODIUM BICARB./CITRIC ACID/SIMETHICONE) As Ordered ONE; +E-Z-HD 98% w/w 340GM SUSP BTL As Ordered ONE; +E-Z-PAQUE 96% w/w SUSP 176GM BTL As Ordered ONE; -ESOM0.1C PO; +ESOM20CA2 PO; +ONDA-282 PO; -ONDA4TAB6 PO
== END ==
LOC: M RAD 08:32
PROVIDERS: ATTEND Surgery
DX: K31.84 Gastroparesis (principal)

== ENCOUNTER → 2024-02-24 | Outpatient (CLI) | payer OTHER ==
[~2024-02-24] MED LIST changes: -E-Z-GAS II EFFERVESCENT PACKET (SODIUM BICARB./CITRIC ACID/SIMETHICONE) As Ordered ONE; -E-Z-HD 98% w/w 340GM SUSP BTL As Ordered ONE; -E-Z-PAQUE 96% w/w SUSP 176GM BTL As Ordered ONE
[2024-02-24 14:31] LABS: BASO % 0.5 % (0.0-1.0); EOS # 0.2 10^3/uL (0.0-0.5); EOS % 2.6 % (0.0-3.0); HEMATOCRIT 45.1 % (36.0-47.0); HEMOGLOBIN 14.8 g/dl (12.0-15.5); LYMPH # 2.4 10^3/uL (1.5-5.0); LYMPH % 32.9 % (24.0-44.0); MEAN CORPUSCULAR HEMOGLOBIN 28.8 pg (27.0-33.0); MEAN CORPUSCULAR HGB CONC 32.8 g/dl (32.0-36.5); MEAN CORPUSCULAR VOLUME 87.9 fl (80.0-96.0); MONO # 0.6 10^3/uL (0.0-0.8); MONO % 8.1 % (2.0-8.0); NEUTROPHILS # 4.1 10^3/uL (1.5-8.5); NEUTROPHILS % 55.6 % (36.0-66.0); PLATELET COUNT, AUTOMATED 333 10^3/uL (150-450); RED BLOOD COUNT 5.13 10^6/uL (4.00-5.40); WHITE BLOOD COUNT 7.4 10^3/uL (4.0-10.0)
[2024-02-24 14:53] LABS: CHOLESTEROL RISK RATIO 4.79 (<5); HDL CHOLESTEROL 46.5 MG/DL (>40); LDL CHOLESTEROL 153.9 MG/DL (<100); NON-HDL-C 176.5 MG/DL; PTH INTACT 72.7 PG/ML (18.5-88.0)
[2024-02-24 14:57] LABS: THYROID STIMULATING HORMONE 1.059 uIU/ML (0.55-4.78)
[2024-02-24 14:58] LABS: FREE T4 1.04 NG/DL (0.89-1.76)
[2024-02-24 14:59] LABS: FERRITIN 75.7 NG/ML (7.3-270.7); TOTAL 25(OH) VITAMIN D 71.2 NG/ML (20.0-100.0)
[2024-02-26 15:00] LABS: BERMUDA GRASS IGE < 0.10 kU/L (<0.10); BIRCH IGE < 0.10 kU/L (<0.10); COMMON RAGWEED SHORT IGE < 0.10 kU/L (<0.10); D001 IGE D PTERONYSSINUS < 0.10 kU/L (<0.10); D002-IGE D FARINAE < 0.10 kU/L (<0.10); E001-IGE CAT DANDER < 0.10 kU/L (<0.10); E005-IGE DOG DANDER < 0.10 kU/L (<0.10); ELM IGE < 0.10 kU/L (<0.10); I006 IGE COCKROACH < 0.10 kU/L (<0.10); IMMUNOGLOBULIN E FOR ALLERGENS 15 kU/L (<OR=114); M002 IGE CLADOSPORIUM HERBARU < 0.10 kU/L (<0.10); M003 IGE ASPERGILLUS FUMIGATU < 0.10 kU/L (<0.10); M006 IGE ALTERNIA ALTERNATA < 0.10 kU/L (<0.10); M1-PENICILLIUM NOTATUM < 0.10 kU/L (<0.10); MOUSE URINE IGE < 0.10 kU/L (<0.10); MUGWORT IGE < 0.10 kU/L (<0.10); OAK IGE < 0.10 kU/L (<0.10); ROUGH PIGWEED IGE < 0.10 kU/L (<0.10); SHEEP SORREL IGE < 0.10 kU/L (<0.10); SYCAMORE IGE < 0.10 kU/L (<0.10); T001-IGE MAPLE BOX ELDER < 0.10 kU/L (<0.10); T006-IGE MOUNTAIN CEDAR < 0.10 kU/L (<0.10); T014 COTTONWOOD IGE < 0.10 kU/L (<0.10); TIMOTHY GRASS IGE < 0.10 kU/L (<0.10); WALNUT TREE IGE < 0.10 kU/L (<0.10); WHITE ASH IGE < 0.10 kU/L (<0.10); WHITE MULBERRY IGE < 0.10 kU/L (<0.10)
== END ==
LOC: M PLALAB 09:38
PROVIDERS: ATTEND Family Medicine
DX: E55.9 Vitamin D deficiency, unspecified (principal); D50.9 Iron deficiency anemia, unspecified; J32.9 Chronic sinusitis, unspecified; E78.5 Hyperlipidemia, unspecified; J45.20 Mild intermittent asthma, uncomplicated

== ENCOUNTER → 2024-03-15 | Outpatient (CLI) | payer OTHER, MEDICAID | LOC: M RAD 10:02 | PROVIDERS: ATTEND Family Medicine | DX: J30.9 Allergic rhinitis, unspecified (principal) ==

== ENCOUNTER → 2024-03-24 | Outpatient (CLI) | payer OTHER, MEDICAID | LOC: M WHC 12:28 | PROVIDERS: ATTEND Family Medicine | DX: Z12.31 Encounter for screening mammogram for malignant neoplasm of breast (principal); M81.0 Age-related osteoporosis without current pathological fracture ==

== ENCOUNTER 2024-06-30 16:28 | Emergency (ER) | payer OTHER, MEDICAID ==
[~2024-06-30] VITALS: Ht 162.6 cm; Wt 80.8 kg
[~2024-06-30 16:28] MED LIST changes: -ROSU20TA61 PO; +ROSU20TA86 PO; -SIME180C25 PO; +SIME1CAP4 PO
[2024-06-30] MEDS ORDERED: CLIN-250 PO (18:41)
[2024-06-30] MEDS: BOOSTRIX VACCINE (TETANUS/DIPHTH/ACEL. PERTUSSIS) 0.5ML SYR IM.IMMUN ONE (18:47)
[2024-06-30 19:13] VITALS: BP 129/65; TEMP 97.3; O2SAT 96
== END 2024-06-30 19:16 | disposition home or self-care (01) ==
LOC: M ED 16:28
DX: S91.331A Puncture wound without foreign body, right foot, initial encounter (principal); Y92.9 Unspecified place or not applicable; Y93.9 Activity, unspecified; Y99.9 Unspecified external cause status; J45.909 Unspecified asthma, uncomplicated; Z23 Encounter for immunization; Z88.0 Allergy status to penicillin; Z88.2 Allergy status to sulfonamides; Z88.5 Allergy status to narcotic agent; Z88.8 Allergy status to other drugs, medicaments and biological substances; Z79.1 Long term (current) use of non-steroidal anti-inflammatories (NSAID); Z79.51 Long term (current) use of inhaled steroids; Z79.810 Long term (current) use of selective estrogen receptor modulators (SERMs); Z79.899 Other long term (current) drug therapy

== ENCOUNTER → 2024-08-04 | Outpatient (CLI) | payer OTHER ==
[~2024-08-04] MED LIST changes: +CLIN-250 PO
[2024-08-04 14:09] LABS: BASO % 0.5 % (0.0-1.0); EOS # 0.1 10^3/uL (0.0-0.5); EOS % 1.2 % (0.0-3.0); HEMATOCRIT 42.8 % (36.0-47.0); HEMOGLOBIN 13.8 g/dl (12.0-15.5); LYMPH # 2.5 10^3/uL (1.5-5.0); LYMPH % 31.9 % (24.0-44.0); MEAN CORPUSCULAR HEMOGLOBIN 28.2 pg (27.0-33.0); MEAN CORPUSCULAR HGB CONC 32.2 g/dl (32.0-36.5); MEAN CORPUSCULAR VOLUME 87.3 fl (80.0-96.0); MONO # 0.6 10^3/uL (0.0-0.8); MONO % 7.8 % (2.0-8.0); NEUTROPHILS # 4.5 10^3/uL (1.5-8.5); NEUTROPHILS % 58.1 % (36.0-66.0); PLATELET COUNT, AUTOMATED 279 10^3/uL (150-450); WHITE BLOOD COUNT 7.7 10^3/uL (4.0-10.0)
[2024-08-04 14:37] LABS: CHOLESTEROL RISK RATIO 3.21 (<5); LDL CHOLESTEROL 112.2 MG/DL (<100)
[2024-08-04 14:38] LABS: FERRITIN 39.4 NG/ML (7.3-270.7); FREE T4 1.2 NG/DL (0.89-1.76); PTH INTACT 98.7 PG/ML (18.5-88.0); THYROID STIMULATING HORMONE 1.283 uIU/ML (0.55-4.78)
[2024-08-04 14:39] LABS: TOTAL 25(OH) VITAMIN D 56.9 NG/ML (20.0-100.0)
== END ==
LOC: M PLALAB 10:56
PROVIDERS: ATTEND Family Medicine
DX: D50.9 Iron deficiency anemia, unspecified (principal); E78.5 Hyperlipidemia, unspecified; E55.9 Vitamin D deficiency, unspecified

== ENCOUNTER → 2024-08-04 | Outpatient (REF) | payer OTHER | LOC: M SFHCPLAZ 10:00 | PROVIDERS: ATTEND Family Medicine | DX: D50.9 Iron deficiency anemia, unspecified (principal); E78.5 Hyperlipidemia, unspecified; E55.9 Vitamin D deficiency, unspecified ==

== ENCOUNTER → 2024-08-05 | Outpatient (CLI) | payer OTHER, MEDICAID | LOC: M RAD 08:27 | PROVIDERS: ATTEND Family Medicine | DX: K31.84 Gastroparesis (principal) | CPT/HCPCS: 78264; A9541 ==

== ENCOUNTER 2024-09-26 10:44 | Outpatient (RCR) | payer OTHER, MEDICAID | END 2024-09-30 | LOC: M PT 10:44 | PROVIDERS: ATTEND Family Medicine | DX: M70.62 Trochanteric bursitis, left hip (principal) ==

== ENCOUNTER 2024-10-06 10:48 | Outpatient (RCR) | payer OTHER, MEDICAID | END 2024-10-28 | LOC: M PT 10:48 | PROVIDERS: ATTEND Family Medicine | DX: M70.62 Trochanteric bursitis, left hip (principal) ==

== ENCOUNTER → 2024-12-27 | Outpatient (CLI) | payer OTHER, MEDICAID ==
[~2024-12-27] MED LIST changes: +DENO60SY2 SC; -PROL60SO SC
[2024-12-27 15:54] LABS: BASO % 0.4 % (0.0-1.0); EOS # 0.3 10^3/uL (0.0-0.5); EOS % 3.7 % (0.0-3.0); HEMATOCRIT 43.4 % (36.0-47.0); HEMOGLOBIN 13.8 g/dl (12.0-15.5); LYMPH # 2.7 10^3/uL (1.5-5.0); MEAN CORPUSCULAR HEMOGLOBIN 27.8 pg (27.0-33.0); MEAN CORPUSCULAR HGB CONC 31.8 g/dl (32.0-36.5); MEAN CORPUSCULAR VOLUME 87.3 fl (80.0-96.0); MONO # 0.7 10^3/uL (0.0-0.8); MONO % 7.9 % (2.0-8.0); NEUTROPHILS # 4.5 10^3/uL (1.5-8.5); NEUTROPHILS % 54.5 % (36.0-66.0); PLATELET COUNT, AUTOMATED 250 10^3/uL (150-450); RED BLOOD COUNT 4.97 10^6/uL (4.00-5.40); WHITE BLOOD COUNT 8.3 10^3/uL (4.0-10.0)
[2024-12-27 16:32] LABS: ALBUMIN 3.9 G/DL (3.2-5.2); ALKALINE PHOSPHATASE 23 U/L (35-104); ALT/SGPT 25 U/L (7.0-40); AST/SGOT 17 U/L (<34); BILIRUBIN,TOTAL 0.4 MG/DL (0.3-1.2); BLOOD UREA NITROGEN 15 MG/DL (9-23); CALCIUM LEVEL 9.3 MG/DL (8.5-10.1); CARBON DIOXIDE LEVEL 27 MMOL/L (20-31); CHLORIDE LEVEL 104 MMOL/L (98-107); CHOLESTEROL LEVEL 164 MG/DL (<200); CHOLESTEROL RISK RATIO 3.32 (<5); CREATININE FOR GFR 0.67 MG/DL (0.55-1.30); GLOMERULAR FILTRATION RATE > 90.0 (>51); GLUCOSE, FASTING 87 MG/DL (60-100); HDL CHOLESTEROL 49.3 MG/DL (>40); LDL CHOLESTEROL 93.1 MG/DL (<100); NON-HDL-C 114.7 MG/DL; POTASSIUM SERUM 3.8 MMOL/L (3.5-5.1); PTH INTACT 72.5 PG/ML (18.5-88.0); SODIUM LEVEL 139 MMOL/L (136-145); TOTAL PROTEIN 7.1 G/DL (5.7-8.2); TRIGLYCERIDES LEVEL 108 MG/DL (<150)
[2024-12-27 16:33] LABS: FERRITIN 42.3 NG/ML (7.3-270.7); THYROID STIMULATING HORMONE 0.873 uIU/ML (0.55-4.78)
[2024-12-27 16:34] LABS: FREE T4 1.06 NG/DL (0.89-1.76); TOTAL 25(OH) VITAMIN D 68.2 NG/ML (20.0-100.0); VITAMIN B12 LEVEL 685 PG/ML (211-911)
[2024-12-27 16:42] LABS: HEMOGLOBIN A1c 5.2 % (4.0-6.0)
== END ==
LOC: M PLALAB 12:41
PROVIDERS: ATTEND Family Medicine
DX: D50.9 Iron deficiency anemia, unspecified (principal); E78.00 Pure hypercholesterolemia, unspecified; M85.80 Other specified disorders of bone density and structure, unspecified site; E78.5 Hyperlipidemia, unspecified; E55.9 Vitamin D deficiency, unspecified; R73.01 Impaired fasting glucose

== ENCOUNTER → 2025-03-31 | Outpatient (CLI) | payer OTHER, MEDICAID ==
[~2025-03-31] MED LIST changes: -PRAV40TA2 PO; +PRAV40TA85 PO
== END ==
LOC: M WHC 07:54
PROVIDERS: ATTEND Family Medicine
DX: Z12.31 Encounter for screening mammogram for malignant neoplasm of breast (principal); R92.323 Mammographic fibroglandular density, bilateral breasts

== ENCOUNTER → 2025-06-08 | Outpatient (CLI) | payer OTHER, MEDICAID ==
[~2025-06-08] MED LIST changes: -IBUP-1022 PO; +IBUP600T42 PO
[2025-06-08 14:04] LABS: BASO # 0.0 10^3/uL (0.0-0.2); BASO % 0.5 % (0.0-1.0); EOS # 0.2 10^3/uL (0.0-0.5); EOS % 2.1 % (0.0-3.0); LYMPH # 2.6 10^3/uL (1.5-5.0); LYMPH % 32.9 % (24.0-44.0); MONO # 0.7 10^3/uL (0.0-0.8); MONO % 8.4 % (2.0-8.0); NEUTROPHILS # 4.3 10^3/uL (1.5-8.5); NEUTROPHILS % 55.7 % (36.0-66.0); PLATELET COUNT, AUTOMATED 341 10^3/uL (150-450)
[2025-06-08 14:15] LABS: ESTIMATED AVERAGE GLUCOSE 108.0 MG/DL (60-110)
[2025-06-08 14:33] LABS: ALT/SGPT 18 U/L (7.0-40); AST/SGOT 17 U/L (<34); CALCIUM LEVEL 9.3 MG/DL (8.5-10.1); CARBON DIOXIDE LEVEL 29 MMOL/L (20-31); CHLORIDE LEVEL 105 MMOL/L (98-107); CPK CREATINE PHOSPHOKINASE 51 U/L (34-145); CREATININE FOR GFR 0.76 MG/DL (0.55-1.30); GLOMERULAR FILTRATION RATE > 90.0 (>51); POTASSIUM SERUM 4.6 MMOL/L (3.5-5.1); PTH INTACT 72.6 PG/ML (18.5-88.0); SODIUM LEVEL 141 MMOL/L (136-145)
[2025-06-08 14:34] LABS: FREE T4 1.08 NG/DL (0.89-1.76); TOTAL 25(OH) VITAMIN D 49.2 NG/ML (20.0-100.0)
[2025-06-08 14:35] LABS: VITAMIN B12 LEVEL 508 PG/ML (211-911)
[2025-06-08 15:47] LABS: AMORPHOUS SEDIMENT SMALL (NEGATIVE); APPEARANCE, URINE TURBID (CLEAR); BACTERIA, URINE AUTO NEGATIVE (NEGATIVE); BILIRUBIN, URINE AUTO NEGATIVE (NEGATIVE); BLOOD, URINE BLOOD NEGATIVE (NEGATIVE); GLUCOSE, URINE (UA) AUTO NEGATIVE (NEGATIVE); KETONE, URINE AUTO NEGATIVE (NEGATIVE); LEUKOCYTE ESTERASE, URINE AUTO NEGATIVE (NEGATIVE); MUCUS, URINE LARGE (NEGATIVE); NITRITE, URINE AUTO NEGATIVE (NEGATIVE); PROTEIN, URINE AUTO NEGATIVE (NEGATIVE); RBC, URINE AUTO 0 /HPF (0-3); SPECIFIC GRAVITY URINE AUTO 1.025 (1.002-1.035); SQUAMOUS EPITHELIAL CELL UR AU 7 /HPF (0-6); UROBILINOGEN, URINE AUTO 0.2 mg/dL (0.0-2.0); WBC, URINE AUTO 0 /HPF (0-3)
== END ==
LOC: M PLALAB 12:01
PROVIDERS: ATTEND Family Medicine
DX: D50.9 Iron deficiency anemia, unspecified (principal); N39.0 Urinary tract infection, site not specified; E55.9 Vitamin D deficiency, unspecified; E78.5 Hyperlipidemia, unspecified; R73.01 Impaired fasting glucose

== ENCOUNTER 2025-06-26 08:40 | Outpatient (CLI) | payer OTHER, MEDICAID ==
[~2025-06-26] VITALS: Ht 162.6 cm; Wt 78.2 kg
[~2025-06-26 08:40] MED LIST changes: +ALBUTEROL SULFATE 2.5 MG/0.5 ML INH CONCENTRATE NEB SOLN INH PRN; +EPINEPHrine INJ 1 MG/ML 1ML AMP IM PRN; +diphenhydrAMINE 50 MG/ML VIAL IV PRN
[2025-06-26 08:45] VITALS: BP 121/67; O2SAT 98
[2025-06-26] MEDS: IRON SUCROSE 500 MG in NS 250 ML IV ONE (09:43)
[2025-06-26 10:45] VITALS: BP 117/70; O2SAT 98
[2025-06-26 11:45] VITALS: BP 119/81; O2SAT 97
[2025-06-26 12:45] VITALS: BP 107/51; O2SAT 96
[2025-06-26 14:00] VITALS: BP 131/61; O2SAT 94
== END 2025-06-26 14:00 | disposition home or self-care (01) ==
LOC: M INFU 08:40
PROVIDERS: ATTEND Family Medicine
DX: D50.9 Iron deficiency anemia, unspecified (principal); Z88.0 Allergy status to penicillin; Z88.2 Allergy status to sulfonamides; Z88.5 Allergy status to narcotic agent; Z88.8 Allergy status to other drugs, medicaments and biological substances
CPT/HCPCS: 96365; 96366; J1756

== ENCOUNTER → 2025-08-07 | Outpatient (CLI) | payer OTHER, MEDICAID ==
[~2025-08-07] MED LIST changes: -ALBUTEROL SULFATE 2.5 MG/0.5 ML INH CONCENTRATE NEB SOLN INH PRN; +E-Z-GAS II EFFERVESCENT PACKET (SODIUM BICARB./CITRIC ACID/SIMETHICONE) As Ordered ONE; +E-Z-HD 98% w/w 340 GM SUSP BTL As Ordered ONE; +E-Z-PAQUE 96% w/w SUSP 176 GM BTL As Ordered ONE; -EPINEPHrine INJ 1 MG/ML 1ML AMP IM PRN; -diphenhydrAMINE 50 MG/ML VIAL IV PRN
== END ==
LOC: M RAD 08:44
PROVIDERS: ATTEND Family Medicine
DX: K31.84 Gastroparesis (principal)

== ENCOUNTER → 2025-08-16 | Outpatient (REF) | payer OTHER, MEDICAID ==
[~2025-08-16] MED LIST changes: -E-Z-GAS II EFFERVESCENT PACKET (SODIUM BICARB./CITRIC ACID/SIMETHICONE) As Ordered ONE; -E-Z-HD 98% w/w 340 GM SUSP BTL As Ordered ONE; -E-Z-PAQUE 96% w/w SUSP 176 GM BTL As Ordered ONE
== END ==
LOC: M SFHCDERM 10:18
PROVIDERS: ATTEND Family Medicine
DX: L57.0 Actinic keratosis (principal); C44.622 Squamous cell carcinoma of skin of right upper limb, including shoulder